=== PATIENT | female | born 1980 | race Caucasian/White ===

== ENCOUNTER → 2019-11-09 15:53 | Outpatient (CLI) | payer OTHER, SELFPAY | PROVIDERS: PCP Family Medicine; Referring Provider Otolaryngology Otolaryngology/Facial Plastic Surgery; Visit Provider Otolaryngology Otolaryngology/Facial Plastic Surgery | DX: J02.9 Acute pharyngitis, unspecified (principal) | CPT/HCPCS: 87070 ==

== ENCOUNTER → 2022-07-13 | Outpatient (CLI) | payer OTHER, SELFPAY ==
--- NOTE | 2022-07-13 09:38 | CT_ITS ---
STUDY: CT MAXILLOFACIAL SINUSES REASON FOR EXAM: Female, 42 years old. SINUSITIS RADIATION DOSAGE (If Supplied By Facility): CTDIvol = ( 33.06 ) mGy, DLP = ( 742.94 ) mGycm TECHNIQUE: The patient was scanned in a multi detector CT scanner. High resolution axial imaging was performed without the administration of intravenous contrast material. Sagittal and coronal images were reconstructed. Individualized dose optimization techniques were used for this CT. COMPARISON: None. FINDINGS: FRONTAL SINUSES: Normal aeration, without mucosal inflammatory disease. ETHMOIDAL SINUSES: There is mild opacification of the ethmoid sinuses. MAXILLARY SINUSES: Normal aeration, without mucosal inflammatory disease. SPHENOIDAL SINUSES: Normal aeration, without mucosal inflammatory disease. There is patency of the bilateral maxillary infundibuli with normal uncinate processes, ethmoid bullae, and hiatus semilunaris. Normal bilateral middle turbinates. Normal bilateral inferior turbinates. Normal midline nasal septum. There is patency of the bilateral nasal airways. The visualized osseous structures are normal. The visualized bilateral orbital contents are normal. CT/Sinus/Facial Bone IMPRESSION: Mild opacification of the ethmoid sinuses consistent with a history of sinusitis. Electronically Signed: Molly Bradford MD at 10:30 EDT ,
== END | disposition home or self-care (01) ==
PROVIDERS: PCP Family Medicine; Referring Provider Otolaryngology Otolaryngology/Facial Plastic Surgery; Visit Provider Otolaryngology Otolaryngology/Facial Plastic Surgery
DX: J32.9 Chronic sinusitis, unspecified (principal)
CPT/HCPCS: 70486

== ENCOUNTER → 2023-08-11 | Outpatient (CLI) | payer OTHER, SELFPAY | END | disposition home or self-care (01) | LOC: LABSPEC 15:15 | PROVIDERS: PCP Family Medicine; Referring Provider Otolaryngology Otolaryngology/Facial Plastic Surgery; Visit Provider Otolaryngology Otolaryngology/Facial Plastic Surgery | DX: J02.9 Acute pharyngitis, unspecified (principal) | CPT/HCPCS: 87070 ==

== ENCOUNTER → 2024-08-23 | Outpatient (CLI) | payer OTHER, SELFPAY ==
[2024-08-23 15:04] LABS: EXAGEN MAILED SPECIMEN
[2024-08-23 15:49] LABS: Color, Urine Yellow (Yellow); Glucose, Dipstick Normal (Normal); Ketone-Dipstick Negative (Negative); Leukocyte Esterase-Dipstick 100 /ul (Negative); Nitrite-Dipstick Negative (Negative); Occult Blood-Urine Negative /ul (Negative); Protein-Dipstick Negative (Negative); Specific Gravity, Urine 1.015 (1.002-1.030); Urine Bilirubin Dipstick Negative (Negative); Urine Clarity Clear (Clear); Urine Urobilinogen Normal (Normal)
[2024-08-23 16:19] LABS: Protein, Urine (Random) 7.4 mg/dL (<11.9); Protein:Creat Ratio 109 mg/g CRE (0-200)
[2024-08-23 18:37] LABS: Absolute Lymphocyte Count 2.15 X10^3/uL (0.83-4.51); Absolute Neutrophil Count 3.6 X10^3/uL (2.0-7.7); Basophil# 0.02 X10^3/uL; Basophil% 0.3 % (0-1); Eosinophil# 0.05 X10^3/uL; Eosinophils% 0.8 % (0-5); Hematocrit 39.4 % (37-47); Hemoglobin 12.8 g/dL (12.0-15.0); Lymphocyte # 2.15 X10^3/ul (0.83-4.51); Lymphocyte % 34.7 % (19-41); Mean Corp Hgb Conc 32.5 g/dL (32-36); Mean Corpuscular Hgb 27.5 pg (27.0-32.0); Mean Corpuscular Volume 84.7 fL (81-99); Mean Platelet Vol. 11.3 fl (6.2-12.0); Monocyte# 0.34 X10^3/uL; Monocyte% 5.5 % (0-10); NRBC Flagged by Analyzer 0 % (0-5); Neutrophil # 3.62 X10^3/uL (2.7-7.7); Neutrophil % 58.4 % (47-70); Platelet Count 248 K/mm3 (150-450); RBC Distribution Width CV 13.6 % (11.6-14.6); RBC Distribution Width SD 42.3 fl (35.1-43.9); Red Blood Count 4.65 M/mm3 (4.2-5.4); White Blood Count 6.2 K/mm3 (4.4-11.0)
[2024-08-23 18:48] LABS: AST(SGOT) 15 U/L (15-37); Alanine Aminotransfer ALT/SGPT 23 U/L (13-56); Albumin, Serum 3.5 g/dL (3.2-5.0); Alkaline Phosphatase 88 U/L (45-117); Anion Gap 7 (5-15); BUN 14 mg/dL (7-18); BUN/Creat Ratio 13.5 RATIO (10-20); Calcium,Total 8.9 mg/dL (8.5-10.1); Chloride 108 mmol/L (98-107); Creatinine, Serum 1.04 mg/dL (0.55-1.02); EST Glomerular Filtration Rate 62 mL/min (>60); Est Glom Filt Rate - Afr Amer 75 mL/min (>60); Globulin 3.5 g/dL (2.2-4.2); Glucose 83 mg/dL (74-106); Potassium 3.6 mmol/L (3.5-5.1); Sodium Level 139 mmol/L (136-145)
[2024-08-23 19:19] LABS: Hepatitis B Surface Antibody Reactive; Hepatitis B Surface Antigen Non-Reactive (Nonreactive); Hepatitis C Antibody Non-Reactive (Nonreactive)
== END | disposition home or self-care (01) ==
PROVIDERS: PCP Family Medicine; Referring Provider Internal Medicine Rheumatology; Visit Provider Internal Medicine Rheumatology
DX: M06.4 Inflammatory polyarthropathy (principal); R76.8 Other specified abnormal immunological findings in serum
CPT/HCPCS: 36415; 80053; 81002; 82570; 84156; 85025; 86706; 86803; 87340

== ENCOUNTER → 2024-11-22 | Outpatient (CLI) | payer OTHER, SELFPAY ==
[2024-11-22 16:00] LABS: Absolute Lymphocyte Count 2.28 X10^3/uL (0.83-4.51); Absolute Neutrophil Count 4.6 X10^3/uL (2.0-7.7); Basophil# 0.03 X10^3/uL; Basophil% 0.4 % (0-1); Eosinophil# 0.06 X10^3/uL; Eosinophils% 0.8 % (0-5); Hematocrit 40.3 % (37-47); Hemoglobin 12.9 g/dL (12.0-15.0); Lymphocyte # 2.28 X10^3/ul (0.83-4.51); Lymphocyte % 30.6 % (19-41); Mean Corpuscular Hgb 27.3 pg (27.0-32.0); Mean Corpuscular Volume 85.2 fL (81-99); Mean Platelet Vol. 11.3 fl (6.2-12.0); Monocyte# 0.43 X10^3/uL; Monocyte% 5.8 % (0-10); NRBC Flagged by Analyzer 0 % (0-5); Neutrophil % 61.9 % (47-70); Platelet Count 230 K/mm3 (150-450); RBC Distribution Width CV 13.8 % (11.6-14.6); Red Blood Count 4.73 M/mm3 (4.2-5.4); White Blood Count 7.4 K/mm3 (4.4-11.0)
[2024-11-22 16:18] LABS: ALB/GLOB Ratio 1.1 RATIO (0.9-2.4); AST(SGOT) 19 U/L (15-37); Alanine Aminotransfer ALT/SGPT 25 U/L (13-56); Albumin, Serum 4.1 g/dL (3.2-5.0); Alkaline Phosphatase 83 U/L (45-117); Anion Gap 9 (5-15); BUN 14 mg/dL (7-18); BUN/Creat Ratio 14.4 RATIO (10-20); Calcium,Total 9.6 mg/dL (8.5-10.1); Chloride 105 mmol/L (98-107); Creatinine, Serum 0.97 mg/dL (0.55-1.02); EST Glomerular Filtration Rate 67 mL/min (>60); Est Glom Filt Rate - Afr Amer 81 mL/min (>60); Globulin 3.8 g/dL (2.2-4.2); Glucose 81 mg/dL (74-106); Potassium 3.6 mmol/L (3.5-5.1); Protein, Total 7.9 g/dL (6.4-8.2); Sodium Level 136 mmol/L (136-145)
[2024-11-30 16:07] LABS: Lyme IgG P18 Ab Absent (.); Lyme IgG P23 Ab Absent (.); Lyme IgG P28 Ab Absent (.); Lyme IgG P30 Ab Absent (.); Lyme IgG P39 Ab Absent (.); Lyme IgG P41 Ab Present (.); Lyme IgG P45 Ab Absent (.); Lyme IgG P58 Ab Present (.); Lyme IgG P66 Ab Absent (.); Lyme IgG P93 Ab Absent (.); Lyme IgG WB Interpretation Negative (.); Lyme IgM P23 Ab Absent (.); Lyme IgM P39 Ab Absent (.); Lyme IgM P41 Ab Absent (.); Lyme IgM WB Interpretation Negative (.)
== END | disposition home or self-care (01) ==
LOC: MTLAB 12:41
PROVIDERS: PCP Family Medicine; Referring Provider Internal Medicine Rheumatology; Visit Provider Internal Medicine Rheumatology
DX: M06.4 Inflammatory polyarthropathy (principal); R76.8 Other specified abnormal immunological findings in serum; Z79.899 Other long term (current) drug therapy
CPT/HCPCS: 36415; 80053; 85025; 86617

== ENCOUNTER → 2025-02-22 | Outpatient (CLI) | payer OTHER, SELFPAY ==
[2025-02-22 17:49] LABS: Absolute Lymphocyte Count 2.36 X10^3/uL (0.83-4.51); Absolute Neutrophil Count 4.1 X10^3/uL (2.0-7.7); Basophil# 0.06 X10^3/uL; Basophil% 0.8 % (0-1); Eosinophil# 0.14 X10^3/uL; Eosinophils% 1.9 % (0-5); Hematocrit 38.7 % (37-47); Hemoglobin 12.6 g/dL (12.0-15.0); Lymphocyte # 2.36 X10^3/ul (0.83-4.51); Lymphocyte % 32.2 % (19-41); Mean Corp Hgb Conc 32.6 g/dL (32-36); Mean Corpuscular Hgb 27.5 pg (27.0-32.0); Mean Corpuscular Volume 84.5 fL (81-99); Mean Platelet Vol. 10.1 fl (6.2-12.0); Monocyte# 0.65 X10^3/uL; Monocyte% 8.9 % (0-10); NRBC Flagged by Analyzer 0 % (0-5); Neutrophil % 55.8 % (47-70); Platelet Count 270 K/mm3 (150-450); RBC Distribution Width CV 13.7 % (11.6-14.6); RBC Distribution Width SD 42.3 fl (35.1-43.9); Red Blood Count 4.58 M/mm3 (4.2-5.4); White Blood Count 7.3 K/mm3 (4.4-11.0)
[2025-02-22 18:55] LABS: ALB/GLOB Ratio 1.3 RATIO (0.9-2.4); AST(SGOT) 26 U/L (<=31); Alanine Aminotransfer ALT/SGPT 22 U/L (<=34); Albumin, Serum 4.1 g/dL (3.5-5.0); Alkaline Phosphatase 86 U/L (35-104); Anion Gap 11 (5-15); BUN 11 mg/dL (4-19); BUN/Creat Ratio 13.1 RATIO (10-20); Carbon Dioxide 23.8 mmol/L (21.0-32.0); Chloride 103 mmol/L (98-108); Creatinine, Serum 0.85 mg/dL (0.70-1.20); EST Glomerular Filtration Rate 88 (>60); Globulin 3.1 g/dL (2.2-4.2); Glucose 81 mg/dL (70-99); Potassium 3.4 mmol/L (3.3-5.1); Protein, Total 7.2 g/dL (5.9-8.4); Sodium Level 137 mmol/L (133-145); Total Bilirubin 0.31 mg/dL (0.00-1.30)
== END | disposition home or self-care (01) ==
LOC: MTLAB 15:36
PROVIDERS: PCP Family Medicine; Referring Provider Internal Medicine Rheumatology; Visit Provider Internal Medicine Rheumatology
DX: M06.4 Inflammatory polyarthropathy (principal); R76.8 Other specified abnormal immunological findings in serum; Z79.899 Other long term (current) drug therapy
CPT/HCPCS: 36415; 80053; 85025

== ENCOUNTER → 2025-05-26 | Outpatient (CLI) | payer OTHER, SELFPAY ==
[2025-05-26 12:25] LABS: Hematocrit 41.3 % (37-47); Hemoglobin 13.2 g/dL (12.0-15.0); Immature Granulocytes Count 0.060 X10^3/uL (0.0-0.0); Mean Corp Hgb Conc 32.0 g/dL (32-36); Mean Corpuscular Volume 82.1 fL (81-99); Mean Platelet Vol. 10.6 fl (6.2-12.0); NRBC Flagged by Analyzer 0 % (0-5); Platelet Count 258 K/mm3 (150-450); RBC Distribution Width CV 14.0 % (11.6-14.6); RBC Distribution Width SD 42.1 fl (35.1-43.9); Red Blood Count 5.03 M/mm3 (4.2-5.4); White Blood Count 6.0 K/mm3 (4.4-11.0)
[2025-05-26 13:09] LABS: AST(SGOT) 28 U/L (<=31); Alanine Aminotransfer ALT/SGPT 23 U/L (<=34); Albumin, Serum 4.3 g/dL (3.5-5.0); Alkaline Phosphatase 99 U/L (35-104); Anion Gap 15 (5-15); BUN 13 mg/dL (4-19); BUN/Creat Ratio 12.7 RATIO (10-20); Calcium,Total 9.5 mg/dL (7.6-11.0); Carbon Dioxide 19.5 mmol/L (21.0-32.0); Chloride 102 mmol/L (98-108); Globulin 3.5 g/dL (2.2-4.2); Glucose 84 mg/dL (70-99); Potassium 4.1 mmol/L (3.3-5.1)
== END | disposition home or self-care (01) ==
LOC: MTLAB 10:31
PROVIDERS: PCP Family Medicine; Referring Provider Internal Medicine Rheumatology; Visit Provider Internal Medicine Rheumatology
DX: M06.4 Inflammatory polyarthropathy (principal); R76.8 Other specified abnormal immunological findings in serum; Z79.899 Other long term (current) drug therapy
CPT/HCPCS: 36415; 80053; 85025

== ENCOUNTER → 2025-07-22 | Outpatient (CLI) | payer OTHER, SELFPAY ==
--- OUTSIDE RECORDS SUMMARY | 2025-07-22 17:04 | XMS RPT_ITS | CCD ---
Author Organization [facility] Care Team Providers Care Imaging Clerk Name Role Phone [place] PACK Unavailable Dionicio Riojas MD, Caitlin Rios Primary Care Provider [phone] Shine LIMA, Caitlin Rios Primary Care Provider [phone] Shine LIMA, Ciatlin S Primary Care Provider Shine LIMA, Caitlin Rios Primary Care Provider [phone] Shine LIMA, Caitlin Primary Care Provider Shine LIMA, Caitlin Primary Care Provider [phone] Shine LIMA, Caitlin Rios Primary Care Provider Unavailable Primary Care Provider Dionicio Riojas MD, Dr. Tucker Primary Care Provider [phone] Dr. Uyen Cortes MD Attending Provider Dr. Uyen Cortes MD Referring Provider CAMI BAH Referring Unavaila CAMI Norris Attending Unavaila ble CAMI BAH Admitting Unavaila CAMI Norris Attending Unavaila CAMI Norris Attending Unavaila ROSANA Scherer Attending Unavailable CAITLIN RIOJAS Primary Care Unavailable Shine LIMA, Dr. Tucker Primary Care Provider [phone] Dr. Uyen Cortes MD Attending Provider Dr. Uyen Cortes MD Referring Provider Vellanki, Uyen Attending Unavailable Caitlin Riojas Primary Care Unavailable Vellanki, Uyen Referring Unavailable Vellanki, Uyen Attending Unavailable [facility] Primary Care Unavailable Vellanki, Uyen Referring Unavailable Vellanki, Uyen Attending Unavailable [facility] Primary Care Unavailable Vellanki, Uyen Referring Unavailable [facility] Primary Care Unavailable Vellanki, Uyen Attending Unavailable Vellanki, Uyen Referring Unavailable Verito Elder DO Primary Care Provider [facility] Referring Unavailable [place], CAITLIN Attending Unavailable [facility] Primary Care Unavailable [facility] Primary Care Unavailable VERITO ELDER Attending Unavailable [facility] Att[facility] Unavailable [facility] Primary Care Unavailable Unavailable Primary Care Provider UnavailWALESKA Sy Attending Unavailable Allergies Allergy Classification Reported Allergen(s) Allergy Type Date of Onset Reaction(s) Facility (13 sources) SUMAtriptan; Translations: [SUMATRIPTAN SUCCINATE] Drug Allergy 1 Intolerance [facility] Repository (16 sources) BLUE DYE; Translations: [BLUE DYE] Propensity to adverse reactions to drug (disorder) 1 Diarrhea, Vomiting, Nausea and vomiting [facility] Repository (20 sources) SUMAtriptan; Translations: [SUMATRIPTAN] Drug Allergy 1 GI Intolerance [facility] (20 sources) Blue Dyes (Parenteral) Drug Allergy 1 Diarrhea [facility] Medications Current Medications Medication Drug Class(es) Dates Sig (Normalized) Sig (Original) amLODIPine 5 mg oral tablet (20 sources) Dihydropyridine Calcium Channel Asya Start: 12-06-2024 take 1 tablet by mouth once daily amLODIPine (NORVASC) 5 mg tablet Take 1 tablet by mouth once daily. 12/06/2024 Active Start: 12-06-2024 take 2 tablets by [facility] once daily amLODIPine (Norvasc) 5 MG tablet Take 10 mg by mouth daily. 12/06/2024 Active Start: 01-02-2024 End: 06-06-2025 take 1 tablet by mouth once daily amLODIPine (Norvasc) 2.5 MG tablet Indications: Raynaud's disease without gangrene TAKE 1 TABLET BY MOUTH EVERY DAY 90 tablet 3 11/15/2024 06/06/2025 Discontinued (Med list cleanup) cetirizine hydrochloride 10 mg oral tablet (2 sources) Histamine-1 Receptor Antagonist take 1 tablet by mouth once daily cetirizine (ZYRTEC) 10 MG tablet Take 1 (one) tablet (10 mg total) by mouth daily . Active DULoxetine 30 mg delayed release oral capsule (9 sources) Serotonin and Norepinephrine Reuptake Inhibitor Start: 2024 End: 2025 take 1 capsule by mouth once daily DULoxetine (CYMBALTA) 30 MG capsule Take 1 (one) capsule (30 mg total) by mouth daily . 01/02/2025 06/06/2026 Active folic acid 1 mg oral tablet (2 sources) Start: 2024 take 1 tablet by mouth once daily folic acid (FOLVITE) 1 MG tablet Take 2 (two) tablets (2,000 mcg total) by mouth daily . 06/06/2025 Active hydroxychloroquine sulfate 200 mg oral tablet (9 sources) Antimalarial, Antirheumatic Agent Start: 2024 hydrOXYchloroQUINE (PLAQUENIL) 200 mg tablet Take 300 mg by mouth once daily. 12/06/2024 Active take 5.5 tablets by mouth once d aily hydroxychloroquine (PLAQUENIL) 200 mg tablet TAKE 1&1/2 TABLET(S) ORAL EVERY DAY Active loratadine 10 mg oral tablet (20 sources) take 1 tablet by mouth once daily as needed loratadine (CLARITIN) 10 mg tablet Take 1 (one) tablet (10 mg total) by mouth daily as needed . Active Comment on above: Take 10 mg by mouth. methotrexate 2.5 mg oral tablet (2 sources) Folate Analog Metabolic Inhibitor Start: 5 take 5 tablets by mouth every week, then take 4 tablets by mouth every week methoTREXate (TREXALL) 2.5 MG tablet TAKE 5 TABLET(S) ORAL ONCE A WEEK START 4 TABS ONCE A WK FOR 2 WKS 06/06/2025 Active pantoprazole 40 mg delayed release oral tablet (20 sources) Proton Pump Inhibitor Start: 2 take 1 tablet by mouth once daily pantoprazole (PROTONIX) 40 MG tablet Take 1 (one) tablet (40 mg total) by mouth daily . 11/29/2021 Active Comment on above: Take 40 mg by mouth once daily. UNABLE TO FIND (1 source) UNABLE TO FIND Indications: weekly allergy shots Inject as directed Indications: weekly allergy shots 0 Active Completed/Discontinued Medications Medication Drug Class(es) Dates Sig (Normalized) Sig (Original) atenolol 25 mg oral tablet (5 sources) beta-Adrenergic Asya Start: 05-29-2023 End: 11-25-2023 take 1 tablet by mouth once daily atenolol (Tenormin) 25 MG tablet Indications: Anxiety , Tachycardia Take 1 tablet (25 mg) by mouth daily. 30 tablet 5 05/29/2023 07/07/2023 Discontinued (Side effects) b complex vitamins capsule (4 sources) End: 05-05-2024 take 1 capsule by mouth once daily b complex vitamins capsule Take 1 capsule by mouth daily. 05/05/2024 Discontinued (Therapy completed) take 1 capsule by mouth once kaylah ly b complex vitamins capsule Take 1 capsule by mouth daily. 0 Active benzonatate 200 mg oral capsule (3 sources) Non-narcotic Antitussive Start: 12-09-2023 End: 01-08-2024 take 1 capsule by mouth three times daily as needed for cough benzonatate (Tessalon) 200 MG capsule Indications: COVID-19 Take 1 capsule (200 mg) by mouth 3 times daily as needed for cough. Do not crush or chew. 42 capsule 0 12/09/2023 01/02/2024 Discontinued calcium carbonate 800 mg / famotidine 10 mg / magnesium hydroxide 165 mg chewable tablet (20 sources) Histamine-2 Receptor Antagonist famotidine-calcium carbonate-magnesium hydroxide (PEPCID COMPLETE) 10-800-165 mg Chew Chew and Swallow 1 (one) tablet every evening . Active cholecalciferol 0.025 mg oral capsule (12 sources) Vitamin D End: 06-06-2025 cholecalciferol 25 MCG (1000 UT) capsule Take by mouth. 06/06/2025 Discontinued (Med list cleanup) escitalopram 10 mg oral tablet (1 source) Serotonin Reuptake Inhibitor Start: 05-12-2025 End: 06-06-2025 take 1 tablet by mouth once daily escitalopram (Lexapro) 10 MG tablet Take 10 mg by mouth daily. 05/12/2025 06/06/2025 Discontinued Ethinyl Estradiol / Norgestrel (9 sources) Estrogen Start: 11-25-2022 End: 05-02-2023 Low-Ogestrel 0.3-30 MG-MCG tablet TAKE 1 TABLET BY MOUTH ONCE DAILY. NEW PACK EVERY 21 DAYS. 0 11/25/2022 05/02/2023 Discontinued (Med list cleanup) Start: 11-25-2022 Low-Ogestrel 0 .3-30 MG-MCG tablet TAKE 1 TABLET BY MOUTH ONCE DAILY. NEW PACK EVERY 21 DAYS. 0 11/25/2022 Active Start: 09-02-2022 End: 09-22-2023 norgestrel-ethinyl estradiol 0.3-30 mg-mcg per tablet Take 1 tablet by mouth once daily. New pack every 21 days. 112 tablet 4 09/02/2022 09/22/2023 Discontinued Start: 09-02-2022 norgestrel-eth inyl estradiol 0.3-30 mg-mcg per tablet Take 1 tablet by mouth once daily. New pack every 21 days. 112 tablet 4 09/02/2022 Active Start: 01-01-2022 take 1 tablet by derrek th once daily, then take 0.3-30 tablets by mouth once norgestrel-ethinyl estradiol (LO/OVRAL) 0.3-30 MG-MCG per tablet Take 1 tablet by mouth daily 0 01/01/2022 Active Start: 01-01-2022 norgestrel-eth inyl estradiol 0.3-30 mg-mcg per tablet Take 1 tablet by mouth once daily. New pack every 21 days. 112 tablet 4 01/01/2022 Active Comment on above: Take 1 tablet by derrek th once daily. New pack every 21 days. metroNIDAZOLE 10 mg/ml topical cream (1 source) Nitroimidazole Antimicrobial metroNIDAZOLE (NORITATE) 1 % cream Apply to affected area once daily. 0 Active Comment on above: Apply to affected ar ea once daily. MULTIVITAMIN ORAL (1 source) take 2 capsules by mouth once daily, then take 2 capsules by mouth once daily MULTIVITAMIN ORAL Take 2 capsules by mouth once daily. 2 gummies per day 0 Active Comment on above: Take 2 capsules by m out once daily. 2 gummies per day nebivolol 2.5 mg oral tablet (10 sources) Start: End: 03-20-2 025 take 1 tablet by mouth once daily nebivolol (Bystolic) 2.5 MG tablet Indications: Tachycardia Take 1 tablet (2.5 mg) by mouth daily. 90 tablet 3 09/23/2023 01/02/2024 Discontinued Comment on above: Take 2.5 mg by mouth once daily. PNV with Ca,No.66-Stru-SQ-DHA (WOMEN'S + DHA) 28 mg-975 mcg- 200 mg cmpk (1 source) Start: 018 take 1 tablet by mouth once daily PNV with Ca,No.10-Dkxa-RW-DHA (WOMEN'S + DHA) 28 mg-975 mcg- 200 mg cmpk Take 1 tablet by mouth once daily. 90 Each 4 12/11/2017 Active Comment on above: Take 1 tablet by derrek th once daily. Lmqkyv-HcXat-HgLqv-Me th-FA-DHA (Prenate Mini) 18-0.6-0.4-350 MG capsule (18 sources) Start: 023 End: 024 take 1 tablet by mouth in the morning Hzudpd-XdIps-GdJdz-M eth-FA-DHA (Prenate Mini) 18-0.6-0.4-350 MG capsule Take 1 tablet by mouth in the morning. 04/04/2023 05/05/2024 Discontinued (Therapy completed) Start: 04-04-2023 take 1 tablet by derrek th in the morning Ablavk-KnNwy-DaGrk-Meth-FA-DHA (Prenate Mini) 18-0.6-0.4-350 MG capsule Take 1 tablet by mouth in the morning. 0 04/04/2023 Active vit 59-safn-kikfr-dha (PRENATE MINI, FERR ASP GLYCIN,) 18-1-350 mg cap (5 sources) Start: 04-04-2023 End: 09-22-2023 take 1 tablet by mouth once daily vit 62-zben-fbjnw-dha (PRENATE MINI, FERR ASP GLYCIN,) 18-1-350 mg cap Take 1 tablet by mouth once daily. 90 capsule 4 04/04/2023 09/22/2023 Discontinued Start: 04-04-2023 take 1 tablet by derrek th once daily vit 63-lbzw-hprfc-dha (PRENATE MINI, FERR ASP GLYCIN,) 18-1-350 mg cap Take 1 tablet by mouth once daily. 90 capsule 4 04/04/2023 Active Start: 06-15-2019 take 1 tablet by derrek th once daily vit 05-snpl-bptmq-dha (PRENATE MINI, FERR ASP GLYCIN,) 18-1-350 mg cap Take 1 tablet by mouth once daily. 90 tablet 4 06/15/2019 Active Comment on above: Take 1 tablet by derrek th once daily. vitamin b12 1 mg oral tablet (1 source) Vitamin B12 take 1 tablet by mouth once daily cyanocobalamin (VITAMIN B-12) 1,000 mcg tab Take 1,000 mcg by mouth once daily. 0 Active Comment on above: Take 1,000 mcg by mo ut once daily. Problems Active Problems Problem Classification Problem Date Documented Date Episodic/Chronic Anxiety disorders (5 sources) Anxiety; Translations: [Anxiety disorder, unspecified] Onset: 06-06-2025 05-29-2023 Chronic Cardiac dysrhythmias (3 sources) Tachycardia; Translations: [Tachycardia, unspecified] 05-29-2023 Episodic Esophageal disorders (20 sources) Gastroesophageal reflux disease without esophagitis; Translations: [Gastro-esophageal reflux disease without esophagitis] Onset: 08-27-2021 08-27-2021 Chronic Female infertility (1 source) Female infertility; Translations: [Female infertility, unspecified] Chronic Immunizations and screening for infectious disease (2 sources) Anti-nuclear factor positive; Translations: [Other specified abnormal immunological findings in serum] 07-15-2024 Episodic Lymphadenitis (2 sources) Acute lymphadenitis; Translations: [Acute lymphadenitis, unspecified] 01-02-2024 Episodic Malaise and fatigue (2 sources) Fatigue; Translations: [Other fatigue] 05-02-2023 Episodic Other circulatory disease (5 sources) Raynaud's disease; Translations: [Raynaud's syndrome without gangrene] 01-02-2024 Chronic Other circulatory disease (3 sources) Raynaud's syndrome without gangrene; Translations: [Raynaud's disease without gangrene] Onset: 04-27-2025 Chronic Other circulatory disease (2 sources) Raynaud's phenomenon; Translations: [Raynaud's syndrome without gangrene] Onset: 06-06-2025 06-06-2025 Chronic Other connective tissue disease (2 sources) Pain in left foot; Translations: [Pain in left foot] 07-16-2025 Episodic Other connective tissue disease (2 sources) Pain in right foot; Translations: [Pain in right foot] 07-16-2025 Episodic Other inflammatory condition of skin (20 sources) Rosacea; Translations: [Rosacea, unspecified] Onset: 10-08-2017 10-08-2017 Chronic Other non-traumatic joint disorders (2 sources) Bilateral pain of joint of hands; Translations: [Pain in joints of right hand] 07-12-2024 Episodic Other skin disorders (1 source) Skin problem; Translations: [Disorder of the skin and subcutaneous tissue, unspecified] Episodic Other skin disorders (2 sources) Acquired keratoderma; Translations: [Acquired keratosis [keratoderma] palmaris et plantaris] 07-16-2025 Episodic Residual codes; unclassified (1 source) Postoperative state; Translations: [Other specified postprocedural states] 05-12-2025 Episodic Residual codes; unclassified (1 source) Other specified postprocedural states; Translations: [Post-operative state] Onset: 05-12-2025 Episodic Rheumatoid arthritis and related disease (4 sources) Rheumatoid arthritis; Translations: [Rheumatoid arthritis, unspecified] Onset: 09-13-2024 04-27-2025 Chronic Sprains and strains (1 source) Strain of unspecified muscle, fascia and tendon at shoulder and upper arm level, right arm, initial encounter; Translations: [Strain of unspecified muscle, fascia and tendon at shoulder and upper arm level, right arm, initial encounter] Onset: 10-31-2018 Episodic Superficial injury; contusion (1 source) Abrasion, right lower leg, initial encounter; Translations: [Abrasion or friction burn of hip, thigh, leg, and ankle, without mention of infection] 07-12-2024 Episodic Past or Other Problems Problem Classification Problem Date Documented Da te Episodic/Chronic Bacterial infection; unspecified site (20 sources) Clostridioides difficile infection; Translations: [Other bacterial infections of unspecified site] Onset: 10-29-2019 Resolved: 06-06-2025 10-29-2019 Episodic Contraceptive and procreative management (2 sources) Encounter for sterilization; Translations: [Encounter for sterilization] Onset: 02-10-2025 Episodic Ectopic (5 sources) Tubal ; Translations: [Right tubal without intrauterine ] Onset: 04-25-2019 Resolved: 05-12-2019 05-12-2019 Episodic Other gastrointestinal disorders (20 sources) Irritable bowel syndrome; Translations: [Irritable bowel syndrome without diarrhea] Onset: 07-20-2018 Resolved: 06-06-2025 07-20-2018 Chronic Other non-traumatic joint disorders (2 sources) Pain in joints of right hand; Translations: [Pain in joints of right hand] Onset: 07-12-2024 Episodic Other non-traumatic joint disorders (2 sources) Pain in joints of left hand; Translations: [Pain in joints of left hand] Onset: 07-12-2024 Episodic Other screening for suspected conditions (not mental disorders or infectious disease) (13 sources) Patient encounter status; Translations: [Encounter for screening mammogram for malignant neoplasm of breast] Onset: 07-07-2024 Resolved: 05-11-2025 Episodic Residual codes; unclassified (20 sources) H/O: ectopic ; Translations: [Personal history of other complications of , childbirth and the puerperium] Onset: 04-25-2019 10-29-2019 Episodic Residual codes; unclassified (5 sources) Family history of malignant neoplasm of breast in first degree relative; Translations: [Family history of malignant neoplasm of breast] Onset: 01-06-2025 01-06-2025 Episodic Unclassified (1 source) Foot Problem Onset: 07-04-2025 Viral infection (20 sources) Infectious mononucleosis; Translations: [Infectious mononucleosis, unspecified without complication] Onset: 07-20-2018 Resolved: 06-06-2025 07-20-2018 Episodic Results Test Name Value Interpretation Reference Range Facility Office Visiton 06-06-2025 Follow-up visit [id number] Prashanth Jimenez 1980 F Date Provider Department Center 06/06/2025 [id number] FRANCO [facility] Family History Problem Relation Age of Onset Breast cancer Mother 55 Comments: Had genetic testing - non genetic cancer Other Father Comments: stomach issues Kidney disease Father No Known Problems Brother Heart disease Maternal Grandmother Comments: has had open heart surgery Colon cancer Maternal Grandfather Heart disease Maternal Grandfather Comments: has had heart cath Dementia Maternal Grandfather Heart attack Paternal Grandmother Comments: hx of No Known Problems Paternal Grandfather Breast cancer Father's Sister Family Status - Relation Status Age at Mother Alive Father Alive Brother Alive Maternal Grandmother Alive Maternal Grandfather Alive Paternal Grandmother Alive Paternal Grandfather Other Father's Sister Alive Level of Service:35068 ND PERIODIC PREVENTIVE MED EST PATIENT 40-64YRS Reason for Visit and Comments: Annual Exam [83] - Physical, no concerns today New Patient [[id number]] - New to provider Referral [[id number]] - Needs referral for Mammogram Normal [facility] Progress Noteon 06-06-2025 Progress Note Chronic. Controlled on amlodipine. Mgmt per rheum. Normal [facility] Progress Note [facility] [place] [address] [place] [facility] [id number] Visit Type: Physical PCP: Verito Elder DO Reason for Visit: Annual Exam (Physical, no concerns today), New Patient (New to provider), and Referral (Needs referral for Mammogram) ASSESSMENT AND PLAN Assessment & Plan Annual physical exam Up to date on pap smear-Dr. Roa. Mammo ordered. Orders: Lipid panel; Future Raynaud's phenomenon without gangrene Chronic. Controlled on amlodipine. Mgmt per rheum. Anxiety Chronic. Uncontrolled on lexapro. Switch back to cymbalta for better control. Stay on 30mg dose. Let rheum manage the pain component. Encounter for screening mammogram for malignant neoplasm of breast Orders: Bilateral screening mammogram with tomosynthesis; Future Follow up in about 1 year (around 06/06/2026) for Annual. There are no Patient Instructions on file for this visit. SUBJECTIVE HPI Lili Jimenez presents for an annual exam. She has the following concerns today: Rheumatoid arthritis - diagnosed in Aug 2024 Raynauds - amlodipine H/o cymbalta - 30mg was good, but on increased dose noted constipation Lexapro switched by Dr. Tavarez. But not helping the anxiety and dreaming. Review of Systems Pertinent ROS noted in the HPI and all other systems are negative. Allergies[1] Current Medications[2] Medical History[3] Social History[4] Surgical History[5] Family History[6] OBJECTIVE BP 107/73 (BP Location: Right arm, Patient Position: Sitting, BP Cuff Size: Adult) Pulse 73 Temp 36.7 ?C (98 ?F) (Temporal) Ht 5' (1.524 m) Wt 143 lb (64.9 kg) LMP 06/02/2025 (Exact Date) Comment: Regular SpO2 100% BMI 27.93 kg/m? Physical Exam Constitutional: General: She is not in acute distress. Appearance: Normal appearance. HENT: Head: Normocephalic and atraumatic. Right Ear: Tympanic membrane, ear canal and external ear normal. Left Ear: Tympanic membrane, ear canal and external ear normal. Mouth/Throat: Mouth: Mucous membranes are moist. Pharynx: Oropharynx is clear. No posterior oropharyngeal erythema. Eyes: General: No scleral icterus. Extraocular Movements: Extraocular movements intact. Conjunctiva/sclera: Conjunctivae normal. Pupils: Pupils are equal, round, and reactive to light. Neck: Thyroid: No thyroid mass or thyromegaly. Cardiovascular: Rate and Rhythm: Normal rate and regular rhythm. Heart sounds: No murmur heard. Pulmonary: Effort: Pulmonary effort is normal. No respiratory distress. Breath sounds: Normal breath sounds. No wheezing, rhonchi or rales. Abdominal: General: Abdomen is flat. Bowel sounds are normal. There is no distension. Palpations: Abdomen is soft. There is no hepatomegaly, splenomegaly or mass. Tenderness: There is no abdominal tenderness. There is no guarding. Musculoskeletal: Cervical back: Normal range of motion. No tenderness. Lymphadenopathy: Cervical: No cervical adenopathy. Neurological: Mental Status: She is alert. Psychiatric: Attention and Perception: Attention normal. Mood and Affect: Mood normal. Behavior: Behavior normal. Health Maintenance The 10-year ASCVD risk score (Vivian DK, et al., 2019) is: 0.3% Values used to calculate the score: Age: 45 years Sex: Female Is Non- : No Diabetic: No Tobacco smoker: No Systolic Blood Pressure: 107 mmHg Is BP treated: No HDL Cholesterol: 63 mg/dL Total Cholesterol: 178 mg/dL Health Maintenance Due Topic Date Due MMR Vaccines (1 of 1 - Standard series) Never done Varicella Vaccines (1 of 2 - 13+ 2-dose series) Never done Diabetes Screening Never done Hepatitis B Vaccines (1 of 3 - 19+ 3-dose series) Never done COVID-19 Vaccine () 06/20/2024 Cervical Cancer Screening 05/02/2025 Mammogram 07/07/2025 Immunization History Administered Date(s) Administered Alice SARS-CoV-2 Vaccination 08/10/2021 Rho(D)-IG 04/25/2019 Rho(D)-IG IM 04/25/2019 Tdap 02/01/2015, 04/03/2016 Medications Discontinued During This Encounter Medication Reason amLODIPine (Norvasc) 2.5 MG tablet Med list cleanup cholecalciferol 25 MCG (1000 UT) capsule Med list cleanup escitalopram (Lexapro) 10 MG tablet Verito Elder DO 06/06/2025 3:07 PM There are no Patient Instructions on file for this visit. [1] Allergies Allergen Reactions Blue Dyes (Parenteral) Diarrhea Other reaction(s): Vomiting Sumatriptan Other reaction(s): AOF, Intolerance, Intolerance [2] Current Outpatient Medications: amLODIPine (Norvasc) 5 MG tablet, Take 10 mg by mouth daily., Disp: , Rfl: famotidine-calcium carb-mag hydroxide (Pepcid Complete) 10-800-165 MG chewable tablet, Chew 1 tablet every evening., Disp: , Rfl: hydroxychloroquine (Plaquenil) 200 MG tablet, TAKE 11/2 TABLET(S) ORAL EVERY DAY, Disp: , Rfl: loratadine (Claritin) 10 MG tablet, Take 10 mg by mouth daily as ne (more content not included)... Normal [facility] Absolute lymphocyte countOrd ered By: Uyen Cortes on 05-26-2025 Lymphocytes Auto (Unsp spec) [#/Vol] 1.42 10*3/uL 0.83-4.51 [facility] Absolute neutrophil countOrd ered By: Uyen Cortes on 05-26-2025 Neutrophils (Bld) [#/Vol] 3.9 10*3/uL 2.0-7.7 [facility] Anion gap in Serum or Plasma Ordered By: Uyen Cortes on 05-26-2025 Anion gap [Moles/Vol] 15 mmol/L 5-15 [facility] Automated lymphocyte count a s percentage of total leukocytesOrdered By: Uyen Cortes on 05-26-2025 Lymphocytes/100 WBC Auto (Unsp spec) 23.9 % 19- [facility] BUN/creatinine ratioOrdered By: Uyen Cortes on 05-26-2025 Urea nitrogen/Creatinine [Mass ratio] 12.7 mg/mg 10-20 [facility] Basophil percentageOrdered B y: Uyen Cortes on 05-26-2025 Basophils/100 WBC (Bld) 0.5 % 0-1 [facility] Bilirubin, totalOrdered By: Uyen Cortes on 05-26-2025 Bilirubin [Mass/Vol] 0.50 mg/dL 0.00-1.[address] [facility] CBC W/Diff, Automatedon Absolute Lymph 1.42 X10 3/uL Normal 0.83-4.51 [facility] Comment on above: Performed By: #### L 500.4050, [id number], L100.0100 #### [facility] [address] [place], [address] Absolute Neut 3.9 X10 3/uL Normal 2.0-7.7 [facility] Comment on above: Performed By: #### L 500.4050, [id number], L100.0100 #### [facility] [address] [place], [address] Basophils/100 WBC (Bld) 0.5 % Normal 0-1 [facility] Comment on above: Performed By: #### L 500.4050, [id number], L100.0100 #### [facility] [address] [place], [address] Eosinophils/100 WBC (Bld) 1.0 % Normal 0-5 [facility] Comment on above: Performed By: #### L 500.4050, [id number], L100.0100 #### [facility] [address] [place], [address] Erythrocyte distribution width (RBC) [Ratio] 14.0 % Normal 11.6-14.6 [facility] Comment on above: Performed By: #### L 500.4050, L7000.5800, L100.0100 #### [facility] [address] [place], [address] Hematocrit (Bld) [Volume fraction] 41.3 % Normal 37-47 [facility] Comment on above: Performed By: #### L 500.4050, L7000.5800, L100.0100 #### [facility] [address] [place], [address] Hemoglobin (Bld) [Mass/Vol] 13.2 g/dL Normal 12.0-15.0 [facility] Comment on above: Performed By: #### L 500.4050, L7000.5800, L100.0100 #### [facility] [address] [place], [address] IG% 1.000 High 0.0-0.9 [facility] Comment on above: Result Comment: IG% - Immature Granulocytes (promyelocytes, myelocytes and metamyelocytes) > 1% indicates that a LEFT SHIFT is Present. Performed By: #### L 500.4050, L7000.5800, L100.0100 #### [facility] [address] [place], [address] Lymphocytes/100 WBC (Bld) 23.9 % Normal 19-41 [facility] Comment on above: Performed By: #### L 500.4050, L7000.5800, L100.0100 #### [facility] [address] [place], [address] MCH (RBC) [Entitic mass] 26.2 pg Low 27.0-32.0 [facility] Comment on above: Performed By: #### L 500.4050, L7000.5800, L100.0100 #### [facility] [address] [place], [address] MCHC (RBC) [Mass/Vol] 32.0 g/dL Normal 32-36 [facility] Comment on above: Performed By: #### L 500.4050, L7000.5800, L100.0100 #### [facility] [address] [place], [address] MCV (RBC) [Entitic vol] 82.1 fL Normal 81-99 [facility] Comment on above: Performed By: #### L 500.4050, L7000.5800, L100.0100 #### [facility] [address] [place], [address] Monocytes/100 WBC (Bld) 7.6 % Normal 0-10 [facility] Comment on above: Performed By: #### L 500.4050, L7000.5800, L100.0100 #### [facility] [address] [place], [address] Neutrophils/100 WBC (Bld) 66.0 % Normal 47-70 [facility] Comment on above: Performed By: #### L 500.4050, L7000.5800, L100.0100 #### [facility] [address] [place], [address] Nucleated RBC (Bld) [#/Vol] 0 10*3/uL Normal 0-5 [facility] Comment on above: Performed By: #### L 500.4050, L7000.5800, L100.0100 #### [facility] [address] [place], [address] Platelet mean volume (Bld) [Entitic vol] 10.6 fL Normal 6.2-12.0 [facility] Comment on above: Performed By: #### L 500.4050, L7000.5800, L100.0100 #### [facility] [address] [place], [address] Platelets (Bld) [#/Vol] 258 10*3/uL Normal 150-450 [facility] Comment on above: Performed By: #### L 500.4050, L7000.5800, L100.0100 #### [facility] [address] [place], [address] RBC (Bld) [#/Vol] 5.03 10*6/uL Normal 4.2-5.4 [facility] Comment on above: Performed By: #### L 500.4050, L7000.5800, L100.0100 #### [facility] [address] [place], [address] RDW SD 42.1 fl Normal 35.1-43.9 [facility] Comment on above: Performed By: #### L 500.4050, L7000.5800, L100.0100 #### [facility] [address] [place], [address] WBC (Bld) [#/Vol] 6.0 10*3/uL Normal 4.4-11.0 [facility] Comment on above: Performed By: #### L 500.4050, L7000.5800, L100.0100 #### [facility] [address] [place], [address] Carbon dioxide, total [Moles /volume] in Central venous bloodOrdered By: Uyen Cortes on 05-26-2025 CO2 [Moles/Vol] 19.5 mmol/L Low 21.0-32.0 [facility] Chloride assayOrdered By: Reji Cortes on 05-26-2025 Chloride [Moles/Vol] 102 mmol/L 98-[address] [facility] Comprehensive Metabolic Prof ilon 05-26-2025 Albumin [Mass/Vol] 4.3 g/dL Normal 3.5-5.0 [facility] Comment on above: Performed By: #### L 500.4050, L7000.5800, L100.0100 #### [facility] [address] [place], [address] Albumin/Globulin [Mass ratio] 1.2 {ratio} Normal 0.9-2.4 [facility] Comment on above: Performed By: #### L 500.4050, L7000.5800, L100.0100 #### [facility] [address] [place], [address] ALK PHOS 99 U/L Normal 35-104 [facility] Comment on above: Performed By: #### L 500.4050, L7000.5800, L100.0100 #### [facility] [address] [place], [address] ALT [Catalytic activity/Vol] 23 U/L Normal <=34 [facility] Comment on above: Performed By: #### L 500.4050, L7000.5800, L100.0100 #### [facility] [address] [place], [address] AST [Catalytic activity/Vol] 28 U/L Normal <=31 [facility] Comment on above: Performed By: #### L 500.4050, L7000.5800, L100.0100 #### [facility] [address] [place], [address] Bilirubin [Mass/Vol] 0.50 mg/dL Normal 0.00-1.[address] [facility] Comment on above: Performed By: #### L 500.4050, L7000.5800, L100.0100 #### [facility] [address] [place], [address] BUN/CRE 12.7 RATIO Normal 10-20 [facility] Comment on above: Performed By: #### L 500.4050, L7000.5800, L100.0100 #### [facility] [address] [place], [address] Calcium [Mass/Vol] 9.5 mg/dL Normal 7.6-11.0 [facility] Comment on above: Performed By: #### L 500.4050, L7000.5800, L100.0100 #### [facility] [address] [place], [address] Chloride [Moles/Vol] 102 mmol/L Normal 98-[address] [facility] Comment on above: Performed By: #### L 500.4050, L7000.5800, L100.0100 #### [facility] [address] [place], [address] CO2 [Moles/Vol] 19.5 mmol/L Low 21.0-32.0 [facility] Comment on above: Performed By: #### L 500.4050, L7000.5800, L100.0100 #### [facility] [address] [place], [address] Creatinine [Mass/Vol] 1.05 mg/dL Normal 0.70-1.20 [facility] Comment on above: Performed By: #### L 500.4050, L7000.5800, L100.0100 #### [facility] [address] [place], [address] GAP 15 Normal 5-15 [facility] Comment on above: Performed By: #### L 500.4050, L7000.5800, L100.0100 #### [facility] [address] [place], [address] GFR/1.73 sq M.predicted among non-blacks MDRD (S/P/Bld) [Vol rate/Area] 68 mL/min/{1.73_m2} Normal >60 [facility] Comment on above: Result Comment: mL/m in/1.73m2 CKD-EPI Creatinine Equation (2020) Performed By: #### L 500.4050, L7000.5800, L100.0100 #### [facility] [address] [place], [address] Globulin (S) [Mass/Vol] 3.5 g/dL Normal 2.2-4.2 [facility] Comment on above: Performed By: #### L 500.4050, L7000.5800, L100.0100 #### [facility] [address] [place], [address] Glucose [Mass/Vol] 84 mg/dL Normal 70-99 [facility] Comment on above: Performed By: #### L 500.4050, L7000.5800, L100.0100 #### [facility] [address] [place], [address] Potassium [Moles/Vol] 4.1 mmol/L Normal 3.3-5.1 [facility] Comment on above: Performed By: #### L 500.4050, L7000.5800, L100.0100 #### [facility] [address] [place], [address] Sodium [Moles/Vol] 136 mmol/L Normal 133-145 [facility] Comment on above: Performed By: #### L 500.4050, L7000.5800, L100.0100 #### [facility] [address] [place], [address] T PROT 7.8 g/dL Normal 5.9-8.4 [facility] Comment on above: Performed By: #### L 500.4050, L7000.5800, L100.0100 #### [facility] [address] [place], [address] Urea nitrogen [Mass/Vol] 13 mg/dL Normal 4-19 [facility] Comment on above: Performed By: #### L 500.4050, L7000.5800, L100.0100 #### [facility] [address] [place], [address] Eosinophil percentageOrdered By: Uyen Cortes on 05-26-2025 Eosinophils/100 WBC (Bld) 1.0 % 0-5 [facility] Erythrocyte distribution wid th ratioOrdered By: Uyen Cortes on 05-26-2025 Erythrocyte distribution width (RBC) [Ratio] 14.0 % 11.6-14.6 [facility] Erythrocyte distribution wid th standard deviationOrdered By: Uyen Cortes on 05-26-2025 Erythrocyte distribution width (RBC) [Ratio] 42.1 fl 35.1-43.9 [facility] Glomerular filtration rate ( GFR) estimation/1.73 sq m using serum, plasma, or whole bOrdered By: Uyen Cortes on 05-26-2025 GFR/1.73 sq M.predicted among non-blacks MDRD (S/P/Bld) [Vol rate/Area] 68 mL/min/{1.73_m2} >60 [facility] Comment on above: mL/min/1.73m2 CKD-EP I Creatinine Equation (2020) Hematocrit Auto (Bld) [Volum e fraction]Ordered By: Uyen Cortes on 05-26-2025 Hematocrit (Bld) [Volume fraction] 41.3 % 37-47 [facility] Hemoglobin measurementOrdere d By: Uyen Cortes on 05-26-2025 Hemoglobin (Bld) [Mass/Vol] 13.2 g/dL 12.0-15.0 [facility] Immature granulocytes/100 WB C Auto (Bld)Ordered By: Uyen Cortes on 05-26-2025 Immature granulocytes/100 WBC (Bld) 1.000 % High 0.0-0.9 [facility] Comment on above: IG% - Immature Granu locytes (promyelocytes, myelocytes and metamyelocytes) > 1% indicates that a LEFT SHIFT is Present. Laboratory - Chemistry and C hemistry - challengeOrdered By: Uyen Cortes on 05-26-2025 AST [Catalytic activity/Vol] 28 U/L <32 [facility] MCV (mean corpuscular volume ) determinationOrdered By: Uyen Cortes on 05-26-2025 MCV (RBC) [Entitic vol] 82.1 fL 81-99 [facility] Mean corpuscular hemoglobin (MCH) determinationOrdered By: Uyen Cortes on 05-26-2025 MCH (RBC) [Entitic mass] 26.2 pg Low 27.0-32.0 [facility] Mean corpuscular hemoglobin concentration (MCHC) determinationOrdered By: Uyen Cortes on 05-26-2025 MCHC (RBC) [Mass/Vol] 32.0 g/dL 32-36 [facility] Mean platelet volume determi nationOrdered By: Uyen Cortes on 05-26-2025 Platelet mean volume (Bld) [Entitic vol] 10.6 fL 6.2-12.0 [facility] Monocyte percentageOrdered B y: Uyen Cortes on 05-26-2025 Monocytes/100 WBC (Bld) 7.6 % 0-10 [facility] Neutrophil percentageOrdered By: Uyen Cortes on 05-26-2025 Neutrophils/100 WBC (Bld) 66.0 % 47-70 [facility] Nucleated red blood cell per centageOrdered By: Uyen Cortes on 05-26-2025 Nucleated RBC/100 WBC (Bld) [Ratio] 0 % 0-5 [facility] Platelet countOrdered By: Reji Cortes on 05-26-2025 Platelets (Bld) [#/Vol] 258 10*3/uL 150-450 [facility] Potassium measurement (mass/ volume)Ordered By: Uyen Cortes on 05-26-2025 Potassium (Unsp spec) [Mass/Vol] 4.1 mmol/L 3.3-5.1 [facility] RBC Auto (Bld) [#/Vol]Ordere d By: Uyen Cortes on 05-26-2025 RBC (Bld) [#/Vol] 5.03 10*6/uL 4.2-5.4 [facility] Serum creatinine measurement (mass/volume)Ordered By: Uyen Cortes on 05-26-2025 Creatinine [Mass/Vol] 1.05 mg/dL 0.70-1.20 [facility] Serum globulin measurementOr dered By: Uyen Cortes on 05-26-2025 Globulin (S) [Mass/Vol] 3.5 g/dL 2.2-4.2 [facility] Serum glucose measurement (m ass/volume)Ordered By: Uyen Cortes on 05-26-2025 Glucose [Mass/Vol] 84 mg/dL 70-99 [facility] Serum or plasma alanine nichols otransferase (ALT) measurementOrdered By: Uyen Cortes on 05-26-2025 ALT [Catalytic activity/Vol] 23 U/L <35 [facility] Serum or plasma albumin gabrielle urement (mass/volume)Ordered By: Uyen Cortes on 05-26-2025 Albumin [Mass/Vol] 4.3 g/dL 3.5-5.0 [facility] Serum or plasma albumin/glob ulin mass ratioOrdered By: Uyen Cortes on 05-26-2025 Albumin/Globulin [Mass ratio] 1.2 {ratio} 0.9-2.4 [facility] Serum or plasma alkaline le sphatase measurementOrdered By: Uyen Cortes on 05-26-2025 ALP [Catalytic activity/Vol] 99 U/L 35-104 [facility] Serum or plasma calcium gabrielle urement (mass/volume)Ordered By: Uyen oCrtes on 05-26-2025 Calcium [Mass/Vol] 9.5 mg/dL 7.6-11.0 [facility] Serum or plasma urea nitroge n measurement (mass/volume)Ordered By: Uyen Cortes on 05-26-2025 Urea nitrogen [Mass/Vol] 13 mg/dL 4-19 [facility] Sodium levelOrdered By: Jayjay Cortes on 05-26-2025 Sodium [Moles/Vol] 136 mmol/L 133-145 [facility] Total proteinOrdered By: Soham Cortes on 05-26-2025 Protein [Mass/Vol] 7.8 g/dL 5.9-8.4 [facility] White blood cell (WBC) count Ordered By: Uyen Cortes on 05-26-2025 WBC (Bld) [#/Vol] 6.0 10*3/uL 4.4-11.0 [facility] 05-19-2025 [facility] Telephone (OBGMEM) LILI JIMENEZ ([id number]) 1980 F Date Time Provider Department 05/19/25 CAMI BAH During your visit today, we recorded the following information about you: Blanche Aguilar Ma 05/19/2025 9:52 AM Signed Called patient to inform today's visit cancelled. Left message advising patient to call in with any concerns or questions and to reschedule phone post op if needed. Allergies As of Date: 05/19/2025 Noted Allergy Reaction BLUE DYE 03/13/2011 6 - Diarrhea 11 - Vomiting IMITREX (SUMATRIPTAN SUCCINATE) 03/13/2011 5 - Intolerance Date Reviewed: 05/11/2025 Reviewed by: Kathleen Hyawood, RN - Fully Assessed Reason for Visit: Appointment [186] Prescriptions as of 05/19/2025 - amLODIPine (NORVASC) 5 mg tablet Take 10 mg by mouth once daily. - DULoxetine (CYMBALTA) 30 mg capsule Take 30 mg by mouth daily at bedtime. - hydrOXYchloroQUINE (PLAQUENIL) 200 mg tablet Take 300 mg by mouth once daily. - loratadine (CLARITIN) 10 mg tablet Take 10 mg by mouth. - pantoprazole DR (PROTONIX) 40 mg tablet Take 40 mg by mouth once daily. Problem List As Of Date 05/19/2025 Noted Resolved Rosacea [L71.9] Right tubal without intrauterine preg*04/25/2019 05/12/2019 History of ectopic [Z87.59] 04/25/2019 Gastroesophageal reflux disease without esophag*08/27/2021 Family history of breast cancer in mother [Z80.*01/06/2025 Encounter for sterilization [Z30.2] 05/11/2025 05/11/2025 Encounter Status:Closed by SHELIA CORTEZ BLANCHE on 05/19/25 [facility] ANES POSTPROC EVALon 025 ANES POSTPROC EVAL HNO ID: [id number] Author: ZHAO MALDONADO MD Service: Anesthesiology Author Type: Anesthesiologist Type: Anesthesia Postprocedure Evaluation Filed: 05/11/2025 14:53 Note Text: POST ANESTHESIA EVALUATION NOTE : 1980 Procedure Summary Date: 05/11/25 Room / Location: [place] [address] / [place] Anesthesia Start: 1331 Anesthesia Stop: 1437 Procedure: vNOTES LAPAROSCOPIC LEFT SALPINGECTOMY (Left: Vagina ) Diagnosis: Encounter for sterilization (Encounter for sterilization [Z30.2]) Surgeons: Cami Bah MD Responsible Provider: Zhao Maldonado MD Anesthesia Type: general ASA Status: 2 Anesthesia Type: general Airway Type: ETT Last Vitals Vitals Value Taken Time BP 115/72 05/11/25 1445 Temp 36.6 ?C (97.9 ?F) 05/11/25 1440 Pulse 67 05/11/25 1451 Resp 16 05/11/25 1451 SpO2 100 % 05/11/25 1451 Vitals shown include unfiled device data. Post Anesthesia Patient Status Patient Evaluation: bedside. Anticipated Disposition: phase 2 then home. Neurological Status: aware and responsive. Pulmonary Status: breathing comfortably on room air Airway Control: returned to baseline unsupported. Cardiovascular Status: stable. Pain Management: clinically adequate Postoperative Hydration: acceptable. Intraoperative Events: no significant anesthesia events Post Operative Nausea/Vomiting Status: no significant post operative nausea or vomiting Recommendation: continue current plan of care. Anesthesia Observations No Documentation SIGNATURE: Zhao Maldonado MD PATIENT NAME: Lili Jimenez DATE: May 11, 2025 TIME: 2:53 PM CSN: [id number] [facility] ANES PRE-OPon 05-11-2025 ANES PRE-OP HNO ID: [id number] Author: CAMI RUIZ MD Service: Anesthesiology Author Type: Anesthesiologist Type: Anesthesia Preprocedure Evaluation Filed: 05/11/2025 11:42 Note Text: ANESTHESIOLOGY DAY OF SURGERY NOTE : 1980 Procedure Information Date/Time: 05/11/25 1153 Procedure: vNOTES LAPAROSCOPIC LEFT SALPINGECTOMY (Left) Location: [place] [facility] [place] Surgeons: Cami Bah MD Estimated body mass index is 27.4 kg/m? as calculated from the following: Height as of this encounter: 154.9 cm (5' 1). Weight as of this encounter: 65.8 kg (145 lb). Most recent hematocrit and potassium results: Hematocrit 45.0 04/25/2019 Potassium 4.2 04/25/2019 Relevant Problems GI (+) Gastroesophageal reflux disease without esophagitis NEURO-PSYCH (+) History of ectopic I - PHYSICAL EVALUATION AIRWAY Patient intubated: No. Tracheostomy tube not present Mallampati: II. TM distance: >3 FB. Neck ROM: full ROM without neurological symptoms. Mouth opening: adequate. Short neck: no. Thick neck: no DENTAL Dental findings: teeth intact. Additional exam findings: yes. CARDIOVASCULAR Rhythm: regular Rate: normal PULMONARY Breath sounds clear to auscultation. II - ANESTHESIA PLAN ASA Score: 2 Anesthetic Plan: general Airway type: ETT The patient is not a current smoker. NPO Status: adequate Beta Asya Monitoring Plan Monitoring plan: Standard ASA. Post Procedure Analgesic Plan Postoperative analgesic plan: parenteral or oral opioids and multimodal analgesia. Informed Consent Anesthetic risks, benefits, alternatives, personnel and consent discussed: yes. Patient / Responsible Alliance Party agrees to proceed: yes Patient / Surrogate agrees to blood products: yes DNR status not reviewed with patient and/or family prior to surgery. Significant changes in the patient condition since the History and Physical, not otherwise documented in primary service progress note: no. Potential Anesthesia issues that may suggest increased risk of complications or contraindication to planned procedure: none. Vitals Value Taken Time BP 145/85 05/11/25 1045 Pulse 85 05/11/25 1045 Resp 18 05/11/25 1045 Temp 36.5 ?C (97.7 ?F) 05/11/25 1045 SpO2 100 % 05/11/25 1045 Facility-Administered Medications as of 05/11/2025 Medication Dose Route Frequency [COMPLETED] acetaminophen 1,000 mg tab(s) (TYLENOL) 1,000 mg ORAL Pre-Op Once [COMPLETED] promethazine 12.5 mg tab(s) (PHENERGAN) 12.5 mg ORAL Pre-Op Once scopolamine (delivers 1 mg over 3 days) 1 patch (TRANSDERM-SCOP) 1 patch TRANSDERMAL ONCE scopolamine - VERIFY patch OTHER q 8 H [START ON 05/12/2025] scopolamine - REMOVE PATCH OTHER ONCE [COMPLETED] famotidine 20 mg injection (PEPCID) 20 mg INTRAVENOUS Pre-Op Once [COMPLETED] celecoxib 200 mg cap(s) (CeleBREX) 200 mg ORAL ONCE Outpatient Medications as of 05/11/2025 Medication Sig amLODIPine (NORVASC) 5 mg tablet Take 10 mg by mouth once daily. hydrOXYchloroQUINE (PLAQUENIL) 200 mg tablet Take 300 mg by mouth once daily. loratadine (CLARITIN) 10 mg tablet Take [address] (PROTONIX) 40 mg tablet Take 40 mg by mouth once daily. DULoxetine (CYMBALTA) 30 mg capsule Take 30 mg by mouth daily at bedtime. (Patient not taking: Reported on 04/27/2025) I have interviewed and examined the patient. I have reviewed the medical record and/or the pre-anesthesia evaluation, pertinent labs, and test results. This contains updated information obtained within 48 hours of Surgery/Procedure. SIGNATURE: Cami Ruiz MD PATIENT NAME: Lili Jimenez DATE: May 11, 2025 TIME: 11:40 AM CSN: [id number] [facility] OPERATIVE NOon 05-11-2025 OPERATIVE NO HNO ID: [id number] Author: CAMI BAH MD Service: Gynecology Author Type: Physician Type: Operative Report Filed: 05/18/2025 11:17 Note Text: OPERATIVE / PROCEDURE NOTE LOG ID: [id number] SURGERY/PROCEDURE DATE: 05/11/2025 INCISION/PROCEDURE START TIME: 1:46 PM INCISION CLOSE/PROCEDURE END TIME: 2:16 PM SURGEON(S)/PROCEDURALI ST(S) AND TELEVISION REPORTER(S): Surgeons and Role: * Cami Bah MD - Primary - performed entire procedure with assistance Physician Bass Mechanism Maker: Adali Garcia PA-C - performed laparoscopy No qualified resident/fellow was available SURGERY/PROCEDURE(S): laparoscopic left salpingectomy ANESTHESIA: General FINDINGS: right fallopian tube absent ESTIMATED BLOOD LOSS: 25 mls SPECIMENS: left fallopian tube COMPLICATIONS: None CLOSURE TECHNIQUE: Primary PRE-OP/PRE-PROCEDURE DIAGNOSIS: Desires permanent sterilization POST-OP/POST-PROCEDURE DIAGNOSIS: Same as Preop Procedure Details: Patient was taken to the operating room where the sign-in and time out were completed. General anesthesia was induced and found to be adequate. She was placed in a dorsal lithotomy position. Exam under anesthesia was performed. The abdomen, perineum and vagina were prepped and draped in the usual sterile fashion. SCDs were placed and turned on for DVT prophylaxis. A Roberts catheter was placed in the urinary bladder under sterile conditions The cervix was grasped with a single tooth tenaculum. Cervix was injected posteriorly with a dilute solution of vasopressin, 20 units of vasopressin mixed in 100 mL. The vaginal mucosa was the dissected off the cervix entering the posterior cul-de-sac sharply. The vNOTES ring was then placed into the posterior cul de sac using the introducer. The gel port was attached and the abdomen insufflated with CO2 gas. The 5 mm, 0 degree laparoscope was introduced with good visualization. The bowel was swept out of the pelvis and the ureters were well clear of the operative site. Attention then turned to left salpingectomy. The left fimbriated end of the tube was grasped and the Ligasure device was used to transect the tube and remove through the gel port. The gel port was removed. The gas was allowed to escape from the patient's abdomen. Hemostasis again noted. The vaginal cuff, including the posterior peritoneum, was closed with running 0-vicryl sutures horizontally. The roberts catheter was removed. All instruments removed from the vagina. Counts correct. Vaginal sweep clear. The patient tolerated the procedure well and was taken to the recovery room in stable condition. Cami Bah MD SIGNATURE: Cami Bah MD PATIENT NAME: Lili Jimenez DATE: May 11, 2025 TIME: 2:41 PM [facility] Pathology biopsy report Everardo (Tiss)on 05-11-2025 AP DISCLAIMER [facility] Comment on above: Order Comment: Speci men Type: TISSUE SPECIMEN Ordering Facility: [facility] Address: [address] [place] [address] Result Comment: Noah Tipton Test (LDT) Disclaimer: Performance characteristics of immunohistochemical, immunofluorescent, and chromogenic in-situ hybridization tests have been determined by the performing laboratory within [facility]'s [facility] Pathology and Laboratory Medicine Department ([facility], [facility], [facility], [facility], [facility], [facility], or [facility]) in a manner consistent with CLIA requirements. One or more of these tests may not have been cleared or approved by the FDA. [facility] is regulated under CLIA as qualified to perform high-complexity testing. These tests are used for clinical purposes. These should not be regarded as investigational or for research. Positive and negative controls stain appropriately. Performed By: #### 6 6121-5 #### [facility] CLIA [id number] [address] [place] [address] [place] CASE REPORT Normal [facility] Comment on above: Order Comment: Speci men Type: TISSUE SPECIMEN Ordering Facility: [facility] Address: [address] [place] [address] Result Comment: Surg ica Pathology Report Case: [id number] Authorizing Provider: Cami Bah, Collected: 05/11/2025 01:53 PM Ordering Location: [facility] Surgery Received: 05/11/2025 03:39 PM Pathologist: Felix Faustin MD Specimen: Fallopian Tube, Left, Resection, left fallopian tube Performed By: #### 6 6121-5 #### [facility] CLIA [id number] [address] [place] [address] [place] CLINICAL HISTORY Normal [facility] Comment on above: Order Comment: Speci men Type: TISSUE SPECIMEN Ordering Facility: [facility] Address: [address] [place] [address] Result Comment: Pre- op diagnosis: Encounter for sterilization [Z30.2] Performed By: #### 6 6121-5 #### [facility] CLIA [id number] [address] [place] [address] FINAL DIAGNOSIS Normal [facility] Comment on above: Order Comment: Speci men Type: TISSUE SPECIMEN Ordering Facility: [facility] Address: [address] [place] [address] Result Comment: A. F allopian tube, left, salpingectomy: ---Benign fallopian tube with a paratubal cyst. at 1310 EDT Performed By: #### 6 6121-5 #### [facility] CLIA [id number] [address] [place] [address] [facility] FINAL PERFORMING LAB [facility] Comment on above: Order Comment: Speci men Type: TISSUE SPECIMEN Ordering Facility: [facility] Address: [address] [place] [address] Result Comment: Diag nostic interpretation performed at: [facility], [address] [place] [address] CLIA# [id number] Ferruler: Frankie Chauhan MD Performed By: #### 6 6121-5 #### [facility] CLIA [id number] [address] [place] [address] GROSS DESCRIPTION Normal [facility] Comment on above: Order Comment: Speci men Type: TISSUE SPECIMEN Ordering Facility: [facility] Address: [address] [place] [address] Result Comment: A. F allopian Tube, Left, Resection Received in formalin labeled as left fallopian tube resection is 1 designated fimbriated fallopian tube measuring 2.0 cm in length by 1.4 cm in diameter. The serosal aspect is casiano-pink to purple, smooth and glistening with 1 pedunculated clear casiano paratubal cyst measuring 0.6 x 0.5 x 0.4 cm and located 0.8 cm from the a fimbriated end. The fimbriated end has a normal villous appearance. The lumen is pinpoint and unremarkable. Windows Application Administrator sections with the bisected fimbriated end and paratubal cyst are submitted in 1 cassette SEP/MLG 05/12/25 7:17 AM Gross examination performed at [facility], [address] [place] [address] Performed By: #### 6 6121-5 #### [facility] CLIA [id number] [address] [place] [address] [place] [address] [place] HISTORY PHYSICALon HISTORY PHYSICAL HNO ID: [id number] Author: TARYN LOYA PA-C Service: ? Author Type: Physician Bass Mechanism Maker Type: H&P Filed: 04/27/2025 13:03 Note Text: [facility] HISTORY AND PHYSICAL EXAMINATION SERVICE DATE: 04/27/2025 SERVICE TIME: 12:39 PM Recording using [employer] software for draft documentation of the visit was discussed with the patient/authorized aircraft sales representative; all questions welcomed and answered. Patient/authorized aircraft sales representative agreed to proceed. PRIMARY CARE PHYSICIAN: No primary care provider on file. Assessment Patient has the following medical conditions which may affect amy-operative course: 1. Rheumatoid arthritis, involving unspecified site, unspecified whether rheumatoid factor present (HCC) (M06.9) - Managed by rheumatology; currently on Plaquenil. - Considering stronger medication that is contraindicated in , hence the elective laparoscopic salpingectomy scheduled with Dr. Bah on May 11. 2. Raynaud's disease without gangrene (I73.00) - Symptoms primarily triggered by temperature changes. - Controlled with Norvasc; no complications reported. 3. Gastro-esophageal reflux disease without esophagitis (K21.9) - Well-controlled with Protonix and dietary modifications. ANESTHESIA FINDINGS: Intubation History: No history of difficult intubation. No abnormal airway history Significant Anesthesia Considerations: none Airway History: No history of difficult airway No abnormal airway history Eldridge Activity Status Index: METS: Walk indoors, such as around the house (1.75 METs) Do light work around the house, such as dusting or washing dishes (2.70 METs) Take care of self; that is eating, dressing, bathing, using the toilet (2.75 METs) Walk a block or two on level ground (2.75 METs) Do moderate work around the house, such as vacuuming, sweeping floors, or carrying in groceries (3.50 METs) Do yardwork, such as raking leaves, weeding, or pushing a power mower (4.50 METs) Climb a flight of stairs or walk up a hill (5.50 METs) DASI Score: 23.45 Patient denies any chest pain or undue shortness of breath with the above physical activity. Clinical Frailty Scale: 3. Well, with treated comorbid disease STOP-Bang Score: Snores loudly Denies feeling tired, fatigued, or sleepy during the daytime Has not been observed to stop breathing or choking/gasping during sleep Denies having high blood pressure BMI less than or equal to 35 kg/m2 Patient 50 years old or younger Does not have a large neck Non-male patient STOP-Bang Score: 1 I - PHYSICAL EVALUATION AIRWAY Patient intubated: No. Tracheostomy tube not present Mallampati: I. TM distance: >3 FB. Neck ROM: full ROM without neurological symptoms. Mouth opening: adequate. Short neck: no. Thick neck: no DENTAL Dental findings: teeth intact. II - ANESTHESIA PLAN Beta Asya Monitoring Plan Post Procedure Analgesic Plan Prepared for Surgery: optimally prepared for surgery. CONSULTS: Patient does not require consults for optimization at this time Planned Anesthetic: anesthesia choice The Following Tests/Procedures Have Been Initiated: No orders of the defined types were placed in this encounter. REASON FOR VISIT: Lili Jimenez is a 44 year old female who is scheduled for Procedure(s): LAPAROSCOPIC SALPINGECTOMY (Left) at the request of Dr. Cami Bah for consultation. My final recommendation will be communicated back to the requesting physician by way of shared medical record or letter. Subjective The patient has the following: COVID-19 Immunization Status Current Care Gaps Covid-19 Vaccine ( season) Overdue since 06/20/2024 08/10/2021 Imm Admin: COVID-19 vaccine (ALICE) CHIEF COMPLAINT: Pre-op HPI: Lili Jimenez is a 44-year-old female with a history of Raynaud's phenomenon, rheumatoid arthritis, and GERD, presenting for preoperative evaluation prior to a laparoscopic salpingectomy scheduled for 05/11/2023. Lili is scheduled for a laparoscopic salpingectomy on 05/11/[address] Bah at [place]. This is an elective sterilization procedure. She has a history of a right salpingectomy in 2019 due to an ectopic , which was an emergency surgery. She also had a septal repair in 2014. She denies any current abdominal pain or abnormal vaginal bleeding. REVIEW OF SYSTEMS: General: No weight loss, malaise or fevers. Neurological: Negative for: dementia, headaches, impaired sensorium, peripheral neuropathy, seizures, TIA and strokes. Respiratory: Negative for: asthma, bronchitis, COPD, current cough, bronchodilator used daily for the last 3 months, dyspnea, home oxygen, orthopnea, pneumonia within 6 weeks, tobacco use, URI < 2 weeks and obstructive sleep apnea. Cardiovascular: +Raynauds. Denies dizziness or syncope. Negative for: abdominal aortic (more content not included)... Normal [facility] Absolute lymphocyte countOrd ered By: [facility] Sebastian on 02-22-2025 Lymphocytes Auto (Unsp spec) [#/Vol] 2.36 10*3/uL 0.83-4.51 [facility] Absolute neutrophil countOrd ered By: [facility] Sebastian on 02-22-2025 Neutrophils (Bld) [#/Vol] 4.1 10*3/uL 2.0-7.7 [facility] Anion gap in Serum or Plasma Ordered By: Uyen Cortes on 02-22-2025 Anion gap [Moles/Vol] 11 mmol/L 5-15 [facility] Automated lymphocyte count a s percentage of total leukocytesOrdered By: [facility] Sebastian on 02-22-2025 Lymphocytes/100 WBC Auto (Unsp spec) 32.2 % 19-41 [facility] BUN/creatinine ratioOrdered By: [facility] on 02-22-2025 Urea nitrogen/Creatinine [Mass ratio] 13.1 mg/mg 10-20 [facility] Basophil percentageOrdered B y: Uyen Cortes on 02-22-2025 Basophils/100 WBC (Bld) 0.8 % 0-1 [facility] Bilirubin, totalOrdered By: Uyennisha Cortes on 02-22-2025 Bilirubin [Mass/Vol] 0.31 mg/dL 0.00-1.[address] [facility] CBC W/Diff, Automatedon 05-0 6-2024 Absolute Lymph 2.36 X10 3/uL Normal 0.83-4.51 [facility] Comment on above: Performed By: #### L 500.4050, L7000.5800, L100.0100 #### [facility] [address] [place], [address] Absolute Neut 4.1 X10 3/uL Normal 2.0-7.7 [facility] Comment on above: Performed By: #### L 500.4050, L7000.5800, L100.0100 #### [facility] [address] [place], [address] Basophils/100 WBC (Bld) 0.8 % Normal 0-1 [facility] Comment on above: Performed By: #### L 500.4050, L7000.5800, L100.0100 #### [facility] [address] [place], [address] Eosinophils/100 WBC (Bld) 1.9 % Normal 0-5 [facility] Comment on above: Performed By: #### L 500.4050, L7000.5800, L100.0100 #### [facility] [address] [place], [address] Erythrocyte distribution width (RBC) [Ratio] 13.7 % Normal 11.6-14.6 [facility] Comment on above: Performed By: #### L 500.4050, L7000.5800, L100.0100 #### [facility] [address] [place], [address] Hematocrit (Bld) [Volume fraction] 38.7 % Normal 37-47 [facility] Comment on above: Performed By: #### L 500.4050, L7000.5800, L100.0100 #### [facility] [address] [place], [address] Hemoglobin (Bld) [Mass/Vol] 12.6 g/dL Normal 12.0-15.0 [facility] Comment on above: Performed By: #### L 500.4050, L7000.5800, L100.0100 #### [facility] [address] [place], [address] IG% 0.400 Normal 0.0-0.9 [facility] Comment on above: Result Comment: IG% - Immature Granulocytes (promyelocytes, myelocytes and metamyelocytes) > 1% indicates that a LEFT SHIFT is Present. Performed By: #### L 500.4050, L7000.5800, L100.0100 #### [facility] [address] [place], [address] Lymphocytes/100 WBC (Bld) 32.2 % Normal 19-41 [facility] Comment on above: Performed By: #### L 500.4050, L7000.5800, L100.0100 #### [facility] [address] [place], [address] MCH (RBC) [Entitic mass] 27.5 pg Normal 27.0-32.0 [facility] Comment on above: Performed By: #### L 500.4050, L7000.5800, L100.0100 #### [facility] [address] [place], [address] MCHC (RBC) [Mass/Vol] 32.6 g/dL Normal 32-36 [facility] Comment on above: Performed By: #### L 500.4050, L7000.5800, L100.0100 #### [facility] [address] [place], [address] MCV (RBC) [Entitic vol] 84.5 fL Normal 81-99 [facility] Comment on above: Performed By: #### L 500.4050, L7000.5800, L100.0100 #### [facility] [address] [place], [address] Monocytes/100 WBC (Bld) 8.9 % Normal 0-10 [facility] Comment on above: Performed By: #### L 500.4050, L7000.5800, L100.0100 #### [facility] [address] [place], [address] Neutrophils/100 WBC (Bld) 55.8 % Normal 47-70 [facility] Comment on above: Performed By: #### L 500.4050, L7000.5800, L100.0100 #### [facility] [address] [place], [address] Nucleated RBC (Bld) [#/Vol] 0 10*3/uL Normal 0-5 [facility] Comment on above: Performed By: #### L 500.4050, L7000.5800, L100.0100 #### [facility] [address] [place], [address] Platelet mean volume (Bld) [Entitic vol] 10.1 fL Normal 6.2-12.0 [facility] Comment on above: Performed By: #### L 500.4050, L7000.5800, L100.0100 #### [facility] [address] [place], [address] Platelets (Bld) [#/Vol] 270 10*3/uL Normal 150-450 [facility] Comment on above: Performed By: #### L 500.4050, L7000.5800, L100.0100 #### [facility] [address] [place], [address] RBC (Bld) [#/Vol] 4.58 10*6/uL Normal 4.2-5.4 [facility] Comment on above: Performed By: #### L 500.4050, L7000.5800, L100.0100 #### [facility] [address] [place], [address] RDW SD 42.3 fl Normal 35.1-43.9 [facility] Comment on above: Performed By: #### L 500.4050, L7000.5800, L100.0100 #### [facility] [address] [place], [address] WBC (Bld) [#/Vol] 7.3 10*3/uL Normal 4.4-11.0 [facility] Comment on above: Performed By: #### L 500.4050, L7000.5800, L100.0100 #### [facility] [address] [place], [address] Carbon dioxide, total [Moles /volume] in Central venous bloodOrdered By: Uyen Cortes on 02-22-2025 CO2 [Moles/Vol] 23.8 mmol/L 21.0-32.0 [facility] Chloride assayOrdered By: Reji Cortes on 02-22-2025 Chloride [Moles/Vol] 103 mmol/L 98-[address] [facility] Comprehensive Metabolic Prof ilon 02-22-2025 Albumin [Mass/Vol] 4.1 g/dL Normal 3.5-5.0 [facility] Comment on above: Performed By: #### L 500.4050, L7000.5800, L100.0100 #### [facility] [address] [place], [address] Albumin/Globulin [Mass ratio] 1.3 {ratio} Normal 0.9-2.4 [facility] Comment on above: Performed By: #### L 500.4050, L7000.5800, L100.0100 #### [facility] [address] [place], [address] ALK PHOS 86 U/L Normal 35-104 [facility] Comment on above: Performed By: #### L 500.4050, L7000.5800, L100.0100 #### [facility] [address] [place], [address] ALT [Catalytic activity/Vol] 22 U/L Normal <=34 [facility] Comment on above: Performed By: #### L 500.4050, L7000.5800, L100.0100 #### [facility] [address] [place], [address] AST [Catalytic activity/Vol] 26 U/L Normal <=31 [facility] Comment on above: Performed By: #### L 500.4050, L7000.5800, L100.0100 #### [facility] [address] [place], [address] Bilirubin [Mass/Vol] 0.31 mg/dL Normal 0.00-1.[address] [facility] Comment on above: Performed By: #### L 500.4050, L7000.5800, L100.0100 #### [facility] [address] [place], [address] BUN/CRE 13.1 RATIO Normal 10-20 [facility] Comment on above: Performed By: #### L 500.4050, L7000.5800, L100.0100 #### [facility] [address] [place], [address] Calcium [Mass/Vol] 9.0 mg/dL Normal 7.6-11.0 [facility] Comment on above: Performed By: #### L 500.4050, L7000.5800, L100.0100 #### [facility] [address] [place], [address] Chloride [Moles/Vol] 103 mmol/L Normal 98-[address] [facility] Comment on above: Performed By: #### L 500.4050, L7000.5800, L100.0100 #### [facility] [address] [place], [address] CO2 [Moles/Vol] 23.8 mmol/L Normal 21.0-32.0 [facility] Comment on above: Performed By: #### L 500.4050, L7000.5800, L100.0100 #### [facility] [address] [place], [address] Creatinine [Mass/Vol] 0.85 mg/dL Normal 0.70-1.20 [facility] Comment on above: Performed By: #### L 500.4050, L7000.5800, L100.0100 #### [facility] [address] [place], [address] GAP 11 Normal 5-15 [facility] Comment on above: Performed By: #### L 500.4050, L7000.5800, L100.0100 #### [facility] [address] [place], [address] GFR/1.73 sq M.predicted among non-blacks MDRD (S/P/Bld) [Vol rate/Area] 88 mL/min/{1.73_m2} Normal >60 [facility] Comment on above: Result Comment: mL/m in/1.73m2 CKD-EPI Creatinine Equation (2020) Performed By: #### L 500.4050, L7000.5800, L100.0100 #### [facility] [address] [place], [address] Globulin (S) [Mass/Vol] 3.1 g/dL Normal 2.2-4.2 [facility] Comment on above: Performed By: #### L 500.4050, L7000.5800, L100.0100 #### [facility] [address] [place], [address] Glucose [Mass/Vol] 81 mg/dL Normal 70-99 [facility] Comment on above: Performed By: #### L 500.4050, L7000.5800, L100.0100 #### [facility] [address] [place], [address] Potassium [Moles/Vol] 3.4 mmol/L Normal 3.3-5.1 [facility] Comment on above: Performed By: #### L 500.4050, L7000.5800, L100.0100 #### [facility] [address] [place], [address] Sodium [Moles/Vol] 137 mmol/L Normal 133-145 [facility] Comment on above: Performed By: #### L 500.4050, L7000.5800, L100.0100 #### [facility] [address] [place], [address] T PROT 7.2 g/dL Normal 5.9-8.4 [facility] Comment on above: Performed By: #### L 500.4050, L7000.5800, L100.0100 #### [facility] [address] [place], [address] Urea nitrogen [Mass/Vol] 11 mg/dL Normal 4-19 [facility] Comment on above: Performed By: #### L 500.4050, L7000.5800, L100.0100 #### [facility] [address] [place], [address] Eosinophil percentageOrdered By: Uyen Cortes on 02-22-2025 Eosinophils/100 WBC (Bld) 1.9 % 0-5 [facility] Erythrocyte distribution wid th ratioOrdered By: Uyen Cortes on 02-22-2025 Erythrocyte distribution width (RBC) [Ratio] 13.7 % 11.6-14.6 [facility] Erythrocyte distribution wid th standard deviationOrdered By: Uyen Cortes on 02-22-2025 Erythrocyte distribution width (RBC) [Ratio] 42.3 fl 35.1-43.9 [facility] Glomerular filtration rate ( GFR) estimation/1.73 sq m using serum, plasma, or whole bOrdered By: Uyen Cortes on 02-22-2025 GFR/1.73 sq M.predicted among non-blacks MDRD (S/P/Bld) [Vol rate/Area] 88 mL/min/{1.73_m2} >60 [facility] Comment on above: mL/min/1.73m2 CKD-EP I Creatinine Equation (2020) Hematocrit Auto (Bld) [Volum e fraction]Ordered By: Uyennisha Cortes on 02-22-2025 Hematocrit (Bld) [Volume fraction] 38.7 % 37-47 [facility] Hemoglobin measurementOrdere d By: Uyen Cortes on 02-22-2025 Hemoglobin (Bld) [Mass/Vol] 12.6 g/dL 12.0-15.0 [facility] Immature granulocytes/100 WB C Auto (Bld)Ordered By: Uyen Cortes on 02-22-2025 Immature granulocytes/100 WBC (Bld) 0.400 % 0.0-0.9 [facility] Comment on above: IG% - Immature Granu locytes (promyelocytes, myelocytes and metamyelocytes) > 1% indicates that a LEFT SHIFT is Present. Laboratory - Chemistry and C hemistry - challengeOrdered By: Uyen Cortes on 02-22-2025 AST [Catalytic activity/Vol] 26 U/L <32 [facility] MCV (mean corpuscular volume ) determinationOrdered By: Uyen Cortes on 02-22-2025 MCV (RBC) [Entitic vol] 84.5 fL 81-99 [facility] Mean corpuscular hemoglobin (MCH) determinationOrdered By: Uyen Cortes on 02-22-2025 MCH (RBC) [Entitic mass] 27.5 pg 27.0-32.0 [facility] Mean corpuscular hemoglobin concentration (MCHC) determinationOrdered By: Uyen Cortes on 02-22-2025 MCHC (RBC) [Mass/Vol] 32.6 g/dL 32-36 [facility] Mean platelet volume determi nationOrdered By: Uyen Cortes on 02-22-2025 Platelet mean volume (Bld) [Entitic vol] 10.1 fL 6.2-12.0 [facility] Monocyte percentageOrdered B y: Uyen Cortes on 02-22-2025 Monocytes/100 WBC (Bld) 8.9 % 0-10 [facility] Neutrophil percentageOrdered By: Uyen Cortes on 02-22-2025 Neutrophils/100 WBC (Bld) 55.8 % 47-70 [facility] Nucleated red blood cell per centageOrdered By: Uyen Cortes on 02-22-2025 Nucleated RBC/100 WBC (Bld) [Ratio] 0 % 0-5 [facility] Platelet countOrdered By: Reji Cortes on 02-22-2025 Platelets (Bld) [#/Vol] 270 10*3/uL 150-450 [facility] Potassium measurement (mass/ volume)Ordered By: Uyen Cortes on 02-22-2025 Potassium (Unsp spec) [Mass/Vol] 3.4 mmol/L 3.3-5.1 [facility] RBC Auto (Bld) [#/Vol]Ordere d By: Uyen Cortes on 02-22-2025 RBC (Bld) [#/Vol] 4.58 10*6/uL 4.2-5.4 [facility] Serum creatinine measurement (mass/volume)Ordered By: Uyen Cortes on 02-22-2025 Creatinine [Mass/Vol] 0.85 mg/dL 0.70-1.20 [facility] Serum globulin measurementOr dered By: Uyen Cortes on 02-22-2025 Globulin (S) [Mass/Vol] 3.1 g/dL 2.2-4.2 [facility] Serum glucose measurement (m ass/volume)Ordered By: Uyen Cortes on 02-22-2025 Glucose [Mass/Vol] 81 mg/dL 70-99 [facility] Serum or plasma alanine nichols otransferase (ALT) measurementOrdered By: Uyen Cortes on 02-22-2025 ALT [Catalytic activity/Vol] 22 U/L <35 [facility] Serum or plasma albumin gabrielle urement (mass/volume)Ordered By: Uyen Cortes on 02-22-2025 Albumin [Mass/Vol] 4.1 g/dL 3.5-5.0 [facility] Serum or plasma albumin/glob ulin mass ratioOrdered By: Uyen Cortes on 02-22-2025 Albumin/Globulin [Mass ratio] 1.3 {ratio} 0.9-2.4 [facility] Serum or plasma alkaline le sphatase measurementOrdered By: Uyen Cortes on 02-22-2025 ALP [Catalytic activity/Vol] 86 U/L 35-104 [facility] Serum or plasma calcium gabrielle urement (mass/volume)Ordered By: Uyen Cortes on 02-22-2025 Calcium [Mass/Vol] 9.0 mg/dL 7.6-11.0 [facility] Serum or plasma urea nitroge n measurement (mass/volume)Ordered By: Uyen Cortes on 02-22-2025 Urea nitrogen [Mass/Vol] 11 mg/dL 4-19 [facility] Sodium levelOrdered By: Jayjay Cortes on 02-22-2025 Sodium [Moles/Vol] 137 mmol/L 133-145 [facility] Total proteinOrdered By: Soham Cortes on 02-22-2025 Protein [Mass/Vol] 7.2 g/dL 5.9-8.4 [facility] White blood cell (WBC) count Ordered By: Uyen Cortes on 02-22-2025 WBC (Bld) [#/Vol] 7.3 10*3/uL 4.4-11.0 [facility] CNOVon 02-10-2025 CNOV Office Visit (OBGMEM ) LILI JIMENEZ ([id number]) 1980 F Date Time Provider Department 02/10/25 1:30 PM CAMI BAH During your visit today, we recorded the following information about you: Blood pressure Weight Last Period 110/77 65.2 kg 02/10/25 Cami Bah MD 02/10/2025 1:45 PM Signed Patient presents to discuss permanent sterilization. She is planning to start a medical therapy which is contraindicated in . She would like permanent sterilization. Reviewed: PMHX PSHx FHx Meds Allergies Extensive discussion of minimally invasive sterilization approaches including vaginal and abdominal laparoscopic approaches. Discussed risks of bleeding, infection, damage to surrounding organs. Bladder injury, bowel injury, ureteral injury, and delayed diagnosis of bladder, bowel, and ureteral injury discussed. Post operative expectations and recovery discussed. A/P: desires permanent sterilization - laparoscopic left salpingectomy (right already removed) Allergies As of Date: 02/10/2025 Noted Allergy Reaction BLUE DYE 03/13/2011 6 - Diarrhea 11 - Vomiting IMITREX (SUMATRIPTAN SUCCINATE) 03/13/2011 5 - Intolerance Date Reviewed: 02/10/2025 Reviewed by: Blanche Talley MA - Fully Assessed Reason for Visit: Established Patient [175] Primary Visit Diagnosis:Encounter for sterilization [Z30.2] Order(s):SURGICAL REQUEST - ELECTIVE (05/2020) [0023709] Order #: [id number]: 1 Prescriptions as of 02/10/2025 - amLODIPine (NORVASC) 5 mg tablet Take 1 tablet by mouth once daily. - DULoxetine (CYMBALTA) 30 mg capsule Take 30 mg by mouth daily at bedtime. - hydrOXYchloroQUINE (PLAQUENIL) 200 mg tablet Take 300 mg by mouth once daily. - loratadine (CLARITIN) 10 mg tablet Take 10 mg by mouth. - pantoprazole DR (PROTONIX) 40 mg tablet Take 40 mg by mouth once daily. Problem List As Of Date 02/10/2025 Noted Resolved Rosacea [L71.9] Right tubal without intrauterine preg*04/25/2019 05/12/2019 History of ectopic [Z87.59] 04/25/2019 Gastroesophageal reflux disease without esophag*08/27/2021 Family history of breast cancer in mother [Z80.*01/06/2025 Encounter Status:Closed by CAMI BAH on 02/10/25 Normal [facility] CNOVon 01-06-2025 CNOV Office Visit (OBGMEM ) LILI JIMENEZ ([id number]) 1980 F Date Time Provider Department 01/06/25 9:45 AM ROSANA ROA OBGMEM During your visit today, we recorded the following information about you: Respiration Blood pressure Weight Last Period 18/minute 122/68 65 kg 12/23/24 Rosana Roa MD 01/06/2025 12:58 PM Signed Lili is a 44 year old who presents for an annual gynecologic exam without complaints. Thorough past history obtained/updated/revie wed with today's visit. Pt states changes to her past history include: Dx w/RA AND Raynaud's, on Rigging Man offered: Patient declines. The patient consented to the use of ambient [employer] software for draft documentation of the visit consistent with [facility]?s Notice of Privacy Practices. Still get period: Yes Bleeding amount bothersome: No Bleeding between periods: No Period symptoms: Acne; Breast tenderness; Cramps (Tx'd CD1 w/Tylenol) Time with current partner: 27 years Number of lifetime partners: 1 Contraception frequency: Never-> states she AND have discussed AND thinking may be fine with not having kids HPV vaccine: No HPV:negative Last pap smear: 07/2020 NILM/HPV History of abnormal pap: No, all prior PAP smears have been normal Bothersome pelvic pain: No Last mammogram: 2023normal Prior history of abnormal mammogram yes, follow up views benign. Sexually active: Yes History of STDS: None Patient concerns for STD exposure: No. Family hx of chief sales officer malignancy: Breast cancer- mom, Pat aunt AND mult Mat/Pat Gr aunts OB History Gravida2 Para0 Term0 Preterm0 AB2 Living0 SAB1 IAB0 Ectopic1 Multiple0 Live Births0 [place] History LMP: 12/23/2024, Having periods Age at Menarche: 15 Age at First : 37 Age at Menopause: [place] History Comments: Sexual Activity: Yes; Male Contraception: No contraception data on record Menstrual Tracking History Flowsheet Row Office Visit from 01/06/2025 in Obstetrics/Gynecology Period Cycle (Days) 27 Period Duration (Days) 4 Menstrual Flow Moderate PAST MEDICAL HISTORY Diagnosis Date Gastroesophageal reflux disease without esophagitis History of ectopic 04/25/2019 right s/p LS right salpingectomy Hypoglycemia, unspecified Raynaud's phenomenon Rheumatoid arthritis (HCC) Rosacea PAST SURGICAL HISTORY Procedure Laterality Date LAPAROSCOPY W/REMOVAL ADNEXAL STRUCTURES Right 04/25/2019 tube removed due to ectopic NASAL SURGERY PROCEDURE 09/2015 septal repair FAMILY HISTORY Problem Relation Age of Onset Hypertension Mother Kidney Disease Mother Breast Cancer Mother 55 Hypertension Father Kidney Disease Father Coronary Artery Disease Maternal Grandmother Ischemic Heart Disease Maternal Grandfather Cancer Maternal Grandfather Carcinoid Stroke Paternal Grandmother Aneurysm Paternal Grandfather brain Breast Cancer Paternal Aunt Stroke Other Heart Other Breast Cancer Other mult M/P Gr aunt Cervical Cancer No Family History Ovarian cancer No Family History Uterine Cancer No Family History Colon Cancer No Family History Pancreatic Cancer No Family History Prostate Cancer No Family History SOCIAL HISTORY Social History Tobacco Use Smoking status: Never Smokeless tobacco: Never Vaping Use Vaping status: Never Used Substance Use Topics Alcohol use: No Drug use: No REVIEW OF SYSTEMS Abdomen: No abdominal pain, nausea, vomiting, diarrhea, or constipation. Bladder: No dysuria, gross hematuria, urinary frequency, urinary urgency, or incontinence. Breast: No breast lumps, nipple d/c, overlying skin changes, redness or skin retraction and +/-SBE normal. Allergies and current medication updated:Yes SENSITIVE EXAM: The sensitive examination was discussed with the Patient or Patient's Authorized Windows Application Administrator. As applicable, any other physician, advance practice provider, medical student, or other health professional student that will be observing or involved in the sensitive examination for educational or training purposes was discussed with the Patient or Authorized Windows Application Administrator. The Patient or Authorized Windows Application Administrator has agreed to proceed with the sensitive examination. (Sensitive examination includes inspection and/or palpation of the breasts, pelvis, prostate and anorectal regions). EXAM: BP 122/68 Resp 18 Wt 143 lb 4.8 oz (65.0kg) LMP 12/23/2024 GENERAL: pleasant, female in no apparent distress HEENT: Normocephalic, atraumatic, mucus membranes moist, and no lesions NECK: Supple, full range of motion, no adenopathy, and thyroid normal DERMATOLOGY: Normal, without lesions, non-icteric, and non-hirsute BREAST: soft, non-tender, symmetric, no dominant mass, normal nipple-areolar complex, no lymphadenopathy, and no nipple discharge CHEST: Clear to auscultation, Normal inspiratory eff (more content not included)... Normal [facility] HIGH RISK HUMAN PAPILLOMA SHAISTA (HPV), PCR FOR DETECTION AND GENOTYPINGon 01-06-2025 HPV 16 Ag Ql (Unsp spec) Not detected Normal Not detected [facility] Comment on above: Order Comment: Speci men Type: FLUID SPECIMEN Ordering Facility: [facility] Address: [address] [place] [address] Performed By: #### H PVHRT #### [facility] CLIA [id number] [address] [place] [address] [place] HPV 18 Ag Ql (Unsp spec) Not detected Normal Not detected [facility] Comment on above: Order Comment: Speci men Type: FLUID SPECIMEN Ordering Facility: [facility] Address: [address] [place] [address] Performed By: #### H PVHRT #### [facility] CLIA [id number] [address] [place] [address] [place] HPV 31+33+35+39+45+51+52+56 +58+59+66+68 DNA KALPANA+probe Ql (Cvx) Not detected Normal Not detected [facility] Comment on above: Order Comment: Speci men Type: FLUID SPECIMEN Ordering Facility: [facility] Address: [address] [place] [address] Result Comment: High Risk HPV Other Type includes HPV types 31, 33, 35, 39, 45, 51, 52, 56, 58, 59, 66 and 68. Performed By: #### H PVHRT #### [facility] CLIA [id number] [address] [place], [place] [id number] [place] PAP TESTon 01-06-2025 ADEQUACY Normal [facility] Comment on above: Order Comment: Speci men Type: FLUID SPECIMEN Ordering Facility: [facility] Address: [address] [place] [address] Result Comment: Sati sfactory for interpretation. Transformation zone present Excess blood Performed By: #### L [id number] #### [facility] CLIA [id number] [address] [place], [place] [address] [place] [facility] CLIA [id number] [address] [place] [address] [place] CASE REPORT Normal [facility] Comment on above: Order Comment: Speci men Type: FLUID SPECIMEN Ordering Facility: [facility] Address: [address] [place] [address] Result Comment: Gyne cologic Cytology Report Case: [id number] Authorizing Provider: Rosana Roa MD Collected: 01/06/2025 10:15 AM Ordering Location: Obstetrics/Gynecology Received: 01/06/2025 12:25 PM First Screen: Cami Gonzalez CT, ASCP Specimen: Pap Test, ThinPrep, Cervix Performed By: #### L [id number] #### [facility] CLIA [id number] [address] [place], [place] [id number] [place] [facility] CLIA [id number] [address] [place], [place] [address] [place] CLINICAL HISTORY, CYTOLOGY, OYSTER WASHER Routine Exam Normal [facility] Comment on above: Order Comment: Speci men Type: FLUID SPECIMEN Ordering Facility: [facility] Address: [address] [place] [address] Performed By: #### L [id number] #### [facility] CLIA [id number] [address] [place], [place] [address] [place] [facility] CLIA [id number] [address] [place], [place] [address] [place] FINAL PERFORMING LAB Normal [facility] Comment on above: Order Comment: Speci men Type: FLUID SPECIMEN Ordering Facility: [facility] Address: [address] [place] [address] Result Comment: Tech nical component, phlebotomist lab assistant screening performed at [facility], [address] [place] [address] [place] [address] CLIA# [id number] Technical component, phlebotomist lab assistant screening performed at [facility], [address] [place] [address] CLIA# [id number] Diagnostic interpretation performed at [facility], [address] [place] [address] CLIA# [id number] Ferruler: Frankie Chauhan M.D. Performed By: #### L [id number] #### [facility] CLIA [id number] [address] [place] [address] [place] [facility] CLIA [id number] [address] [place] [address] [place] GROSS DESCRIPTION A. Cervix Normal [facility] Comment on above: Order Comment: Speci men Type: FLUID SPECIMEN Ordering Facility: [facility] Address: [address] [place] [address] Result Comment: Glac ial Acetic Acid added. Performed By: #### L [id number] #### [facility] CLIA [id number] [address] [place] [address] [place] [facility] CLIA [id number] [address] [place] [address] [place] INTERPRETATION, CYTOLOGY, OYSTER WASHER Normal [facility] Comment on above: Order Comment: Speci men Type: FLUID SPECIMEN Ordering Facility: [facility] Address: [address] [place] [address] Result Comment: Nega tive for intraepithelial lesion or malignancy. at 0911 EDT Performed By: #### L [id number] #### [facility] CLIA [id number] [address] [place] [address] LABORATORY CLIA [id number] [address] [place] [address] [place] LMP 12/23/2024 Normal [facility] Comment on above: Order Comment: Speci men Type: FLUID SPECIMEN Ordering Facility: [facility] Address: [address] [place] [address] Performed By: #### L [id number] #### [facility] CLIA [id number] [address] [place] [address] LABORATORY CLIA [id number] [address] [place] [address] [place] PAP DISCLAIMER COMMENT The Pap Smear is a screening test for cervical cancer. False negative results occur with all screening tests, emphasizing the need for rescreening at recommended intervals, and clinical correlation. Normal [facility] Comment on above: Order Comment: Speci men Type: FLUID SPECIMEN Ordering Facility: [facility] Address: [address] [place] [address] Performed By: #### L [id number] #### [facility] CLIA [id number] [address] [place] [address] OF [facility] CLIA [id number] [address] [place] [address] [place] Lyme Antibodies,W [place] LYME IgG INTERP Negative Normal . [facility] Comment on above: Result Comment: Posi tive: 5 of the following Borrelia-specific bands: 18,23,28,30,39,41,45,58, 66, and 93. Negative: No bands or banding patterns which do not meet positive criteria. Performed By: #### L 500.4050, L7000.5800, L100.0100 #### [facility] [address] [place], [address] LYME IgM INTERP Negative Normal . [facility] Comment on above: Result Comment: Note : An equivocal or positive EIA result followed by a negative Line Blot result is considered NEGATIVE. An equivocal or positive EIA result followed by a positive Line Blot is considered POSITIVE by the CDC. Positive: 2 of the following bands: 23,39 or 41 Negative: No bands or banding patterns which do not meet positive criteria. Criteria for positivity are those recommended by CDC/ASTPHLD. p23=Osp C, a44=[id number] Note: Sera from individuals with the following may cross react in the Lyme Line Blot assays: other spirochetal diseases (periodontal disease, leptospirosis, relapsing fever, yaws, and pinta); connective autoimmune (Rheumatoid Arthritis and Systemic Lupus Erythematosus and also individuals with Antinuclear Antibody); other infections ([place] Spotted Fever; Nita-Moore Virus, and Cytomegalovirus). Please Note: Lyme immunoblot alone is not recommended for the diagnosis of Lyme disease. Current guidelines recommend the use of a two-tiered approach to Lyme serology testing to improve the sensitivity and specificity of testing. [facility] offers test code 048258 Lyme Disease Serology with Reflex to aid in the diagnosis of Lyme Disease. Performed at: [address] [id number] Strike Operations Officer: Mel Jarrett MD, Phone: [phone] Performed By: #### L 500.4050, L7000.5800, L100.0100 #### [facility] [address] [facility] [place], [place], [id number] P18 Ab Absent Normal . [facility] Comment on above: Performed By: #### L 500.4050, L7000.5800, L100.0100 #### [facility] [address] [facility] [place], [place], [id number] P23 Ab Absent Normal . [facility] Comment on above: Performed By: #### L 500.4050, L7000.5800, L100.0100 #### [facility] [address] [facility] [place], [place], [id number] P28 Ab Absent Normal . [facility] Comment on above: Performed By: #### L 500.4050, L7000.5800, L100.0100 #### [facility] [address] [place], [address] P30 Ab Absent Normal . [facility] Comment on above: Performed By: #### L 500.4050, L7000.5800, L100.0100 #### [facility] [address] [place], [address] P39 Ab Absent Normal . [facility] Comment on above: Performed By: #### L 500.4050, L7000.5800, L100.0100 #### [facility] [address] [place], [address] P41 Ab Present Abnormal . [facility] Comment on above: Performed By: #### L 500.4050, L7000.5800, L100.0100 #### [facility] [address] [place], [address] P41 Ab Absent Normal . [facility] Comment on above: Performed By: #### L 500.4050, L7000.5800, L100.0100 #### [facility] [address] [place], [address] P45 Ab Absent Normal . [facility] Comment on above: Performed By: #### L 500.4050, L7000.5800, L100.0100 #### [facility] [address] [place], [address] P58 Ab Present Abnormal . [facility] Comment on above: Performed By: #### L 500.4050, L7000.5800, L100.0100 #### [facility] [address] [place], [address] P66 Ab Absent Normal . [facility] Comment on above: Performed By: #### L 500.4050, L7000.5800, L100.0100 #### [facility] [address] [place], [address] P93 Ab Absent Normal . [facility] Comment on above: Performed By: #### L 500.4050, L7000.5800, L100.0100 #### [facility] [address] [place], [address] Absolute lymphocyte countOrd ered By: Uyen Cortes on 11-22-2024 Lymphocytes Auto (Unsp spec) [#/Vol] 2.28 10*3/uL 0.83-4.51 [facility] Absolute neutrophil countOrd ered By: [facility] Sebastian on 11-22-2024 Neutrophils (Bld) [#/Vol] 4.6 10*3/uL 2.0-7.7 [facility] Albumin to globulin ratioOrd ered By: [facility] Sebastian on 11-22-2024 Albumin/Globulin [Mass ratio] 1.1 {ratio} 0.9-2.4 [facility] Automated blood erythrocyte countOrdered By: Uyennisha Cortes on 11-22-2024 RBC (Bld) [#/Vol] 4.73 10*6/uL Normal 4.2-5.4 [facility] Comment on above: Performed By: #### L 500.4050, L7000.5800, L100.0100 #### [facility] [address] [place], [address] Automated blood hematocrit ( percentage)Ordered By: Uyen Cortes on 11-22-2024 Hematocrit (Bld) [Volume fraction] 40.3 % Normal 37-47 [facility] Comment on above: Performed By: #### L 500.4050, L7000.5800, L100.0100 #### [facility] [address] [place], [address] Automated lymphocyte count a s percentage of total leukocytesOrdered By: Uyen Cortes on 11-22-2024 Lymphocytes/100 WBC Auto (Unsp spec) 30.6 % 19-41 [facility] Basophil percentageOrdered B y: Uyen Cortes on 11-22-2024 Basophils/100 WBC (Bld) 0.4 % Normal 0-1 [facility] Comment on above: Performed By: #### L 500.4050, L7000.5800, L100.0100 #### [facility] [address] [place], [address] Bilirubin, totalOrdered By: Uyen Cortes on 11-22-2024 Bilirubin [Mass/Vol] 0.50 mg/dL 0.20-1.[address] [facility] Comment on above: For patients on eltr ombopag therapy, use of Dimension [place] TBIL is not recommended. Blood urea nitrogen (BUN)/cr eatinine ratioOrdered By: Uyen Cortes on 11-22-2024 Urea nitrogen/Creatinine [Mass ratio] 14.4 mg/mg 10-20 [facility] CBC W/Diff, Automatedon Absolute Lymph 2.28 X10 3/uL Normal 0.83-4.51 [facility] Comment on above: Performed By: #### L 500.4050, L7000.5800, L100.0100 #### [facility] [address] [place], [address] Absolute Neut 4.6 X10 3/uL Normal 2.0-7.7 [facility] Comment on above: Performed By: #### L 500.4050, L7000.5800, L100.0100 #### [facility] [address] [place], [address] IG% 0.500 Normal 0.0-0.9 [facility] Comment on above: Result Comment: IG% - Immature Granulocytes (promyelocytes, myelocytes and metamyelocytes) > 1% indicates that a LEFT SHIFT is Present. Performed By: #### L 500.4050, L7000.5800, L100.0100 #### [facility] [address] [place], [address] Lymphocytes/100 WBC (Bld) 30.6 % Normal 19-41 [facility] Comment on above: Performed By: #### L 500.4050, L7000.5800, L100.0100 #### [facility] [address] [place], [address] Nucleated RBC (Bld) [#/Vol] 0 10*3/uL Normal 0-5 [facility] Comment on above: Performed By: #### L 500.4050, L7000.5800, L100.0100 #### [facility] [address] [place], [address] RDW SD 43.0 fl Normal 35.1-43.9 [facility] Comment on above: Performed By: #### L 500.4050, L7000.5800, L100.0100 #### [facility] [address] [place], [address] Carbon dioxide measurementOr dered By: Uyen Cortes on 11-22-2024 CO2 [Moles/Vol] 22.0 mmol/L 21.0-32.0 [facility] Chloride measurementOrdered By: Uyen Cortes on 11-22-2024 Chloride [Moles/Vol] 105 mmol/L 98-[address] [facility] Comprehensive Metabolic Prof ilon 11-22-2024 Albumin [Mass/Vol] 4.1 g/dL Normal 3.2-5.0 [facility] Comment on above: Performed By: #### L 500.4050, L7000.5800, L100.0100 #### [facility] [address] [place], [address] Albumin/Globulin [Mass ratio] 1.1 {ratio} Normal 0.9-2.4 [facility] Comment on above: Performed By: #### L 500.4050, L7000.5800, L100.0100 #### [facility] [address] [place], [address] ALK P 83 U/L Normal 45-117 [facility] Comment on above: Performed By: #### L 500.4050, L7000.5800, L100.0100 #### [facility] [address] [place], [address] ALT [Catalytic activity/Vol] 25 U/L Normal 13-56 [facility] Comment on above: Performed By: #### L 500.4050, L7000.5800, L100.0100 #### [facility] [address] [place], [address] AST [Catalytic activity/Vol] 19 U/L Normal 15-37 [facility] Comment on above: Performed By: #### L 500.4050, L7000.5800, L100.0100 #### [facility] [address] [place], [address] Bilirubin [Mass/Vol] 0.50 mg/dL Normal 0.20-1.[address] [facility] Comment on above: Result Comment: For patients on eltrombopag therapy, use of Dimension [place] TBIL is not recommended. Performed By: #### L 500.4050, L7000.5800, L100.0100 #### [facility] [address] [place], [address] BUN/CRE 14.4 RATIO Normal 10-20 [facility] Comment on above: Performed By: #### L 500.4050, L7000.5800, L100.0100 #### [facility] [address] [place], [address] CA,Total 9.6 mg/dL Normal 8.5-10.1 [facility] Comment on above: Performed By: #### L 500.4050, L7000.5800, L100.0100 #### [facility] [address] [place], [address] Chloride [Moles/Vol] 105 mmol/L Normal 98-[address] [facility] Comment on above: Performed By: #### L 500.4050, L7000.5800, L100.0100 #### [facility] [address] [place], [address] CO2 [Moles/Vol] 22.0 mmol/L Normal 21.0-32.0 [facility] Comment on above: Performed By: #### L 500.4050, L7000.5800, L100.0100 #### [facility] [address] [place], [address] Creatinine [Mass/Vol] 0.97 mg/dL Normal 0.55-1.02 [facility] Comment on above: Result Comment: The validity of the calculated GFR GFRAA in patients over 70 years has not been determined. Clinical correlation is essential. Performed By: #### L 500.4050, L7000.5800, L100.0100 #### [facility] [address] [place], [address] EST GFR - AA 81 mL/min Normal >60 [facility] Comment on above: Result Comment: Afri can [place] GFR Calc Performed By: #### L 500.4050, L7000.5800, L100.0100 #### [facility] [address] [place], [address] GAP 9 Normal 5-15 [facility] Comment on above: Performed By: #### L 500.4050, L7000.5800, L100.0100 #### [facility] [address] [place], [address] GFR/1.73 sq M.predicted among non-blacks MDRD (S/P/Bld) [Vol rate/Area] 67 mL/min/{1.73_m2} Normal >60 [facility] Comment on above: Result Comment: Non- GFR Calc Performed By: #### L 500.4050, L7000.5800, L100.0100 #### [facility] [address] [place], [address] Globulin (S) [Mass/Vol] 3.8 g/dL Normal 2.2-4.2 [facility] Comment on above: Performed By: #### L 500.4050, L7000.5800, L100.0100 #### [facility] [address] [place], [address] Glucose [Mass/Vol] 81 mg/dL Normal 74-106 [facility] Comment on above: Performed By: #### L 500.4050, L7000.5800, L100.0100 #### [facility] [address] [place], [address] Potassium [Moles/Vol] 3.6 mmol/L Normal 3.5-5.1 [facility] Comment on above: Performed By: #### L 500.4050, L7000.5800, L100.0100 #### [facility] [address] [place], [address] Sodium [Moles/Vol] 136 mmol/L Normal 136-145 [facility] Comment on above: Performed By: #### L 500.4050, L7000.5800, L100.0100 #### [facility] [address] [place], [address] T PROT 7.9 g/dL Normal 6.4-8.2 [facility] Comment on above: Performed By: #### L 500.4050, L7000.5800, L100.0100 #### [facility] [address] [place], [address] Urea nitrogen [Mass/Vol] 14 mg/dL Normal 7-18 [facility] Comment on above: Performed By: #### L 500.4050, L7000.5800, L100.0100 #### [facility] [address] [place], [address] Eosinophil percentageOrdered By: Uyen Cortes on 11-22-2024 Eosinophils/100 WBC (Bld) 0.8 % Normal 0-5 [facility] Comment on above: Performed By: #### L 500.4050, L7000.5800, L100.0100 #### [facility] [address] [place], [address] Erythrocyte distribution wid th ratioOrdered By: Uyen Cortes on 11-22-2024 Erythrocyte distribution width (RBC) [Ratio] 13.8 % Normal 11.6-14.6 [facility] Comment on above: Performed By: #### L 500.4050, L7000.5800, L100.0100 #### [facility] [address] [place], [address] Erythrocyte distribution wid th standard deviationOrdered By: Uyen Cortes on 11-22-2024 Erythrocyte distribution width (RBC) [Ratio] 43.0 fl 35.1-43.9 [facility] Glomerular filtration rate ( GFR) estimationOrdered By: Uyen Cortes on 11-22-2024 GFR/1.73 sq M.predicted among non-blacks MDRD (S/P/Bld) [Vol rate/Area] 67 mL/min/{1.73_m2} >60 [facility] Comment on above: Non- GFR Calc Glucose measurementOrdered B y: Uyen Cortes on 11-22-2024 Glucose [Mass/Vol] 81 mg/dL 74-106 [facility] Hemoglobin measurementOrdere d By: Uyen Cortes on 11-22-2024 Hemoglobin (Bld) [Mass/Vol] 12.9 g/dL Normal 12.0-15.0 [facility] Comment on above: Performed By: #### L 500.4050, L7000.5800, L100.0100 #### [facility] [address] [place], [address] Immature granulocytes/100 WB C Auto (Bld)Ordered By: Uyen Cortes on 11-22-2024 Immature granulocytes/100 WBC (Bld) 0.500 % 0.0-0.9 [facility] Comment on above: IG% - Immature Granu locytes (promyelocytes, myelocytes and metamyelocytes) > 1% indicates that a LEFT SHIFT is Present. Laboratory - Chemistry and C hemistry - challengeOrdered By: Uyen Cortes on 11-22-2024 AST [Catalytic activity/Vol] 19 U/L 15-37 [facility] MCV (mean corpuscular volume ) determinationOrdered By: Uyen Cortes on 11-22-2024 MCV (RBC) [Entitic vol] 85.2 fL Normal 81-99 [facility] [facility] Comment on above: Performed By: #### L 500.4050, L7000.5800, L100.0100 #### [facility] [address] [place], [address] Mean corpuscular hemoglobin (MCH) determinationOrdered By: Uyen Cortes on 11-22-2024 MCH (RBC) [Entitic mass] 27.3 pg Normal 27.0-32.0 [facility] Comment on above: Performed By: #### L 500.4050, L7000.5800, L100.0100 #### [facility] [address] [place], [address] Mean corpuscular hemoglobin concentration (MCHC) determinationOrdered By: Uyen Cortes on 11-22-2024 MCHC (RBC) [Mass/Vol] 32.0 g/dL Normal 32-36 [facility] Comment on above: Performed By: #### L 500.4050, L7000.5800, L100.0100 #### [facility] [address] [place], [address] Mean platelet volume determi nationOrdered By: Uyen Cortes on 11-22-2024 Platelet mean volume (Bld) [Entitic vol] 11.3 fL Normal 6.2-12.0 [facility] Comment on above: Performed By: #### L 500.4050, L7000.5800, L100.0100 #### [facility] [address] [place], [address] Monocyte percentageOrdered B y: Uyen Cortes on 11-22-2024 Monocytes/100 WBC (Bld) 5.8 % Normal 0-10 [facility] Comment on above: Performed By: #### L 500.4050, L7000.5800, L100.0100 #### [facility] [address] [place], [address] Neutrophil percentageOrdered By: Uyen Cortes on 11-22-2024 Neutrophils/100 WBC (Bld) 61.9 % Normal 47-70 [facility] Comment on above: Performed By: #### L 500.4050, L7000.5800, L100.0100 #### [facility] [address] [place], [address] No Panel InformationOrdered By: Uyen Cortes on 11-22-2024 Lyme Disease IgG Ab 30 kDa Band Absent . [facility] Lyme Disease IgG Ab 93 kDa Band Absent . [facility] Lyme Disease IgG West Blot Interp Negative . [facility] Comment on above: Positive: 5 of the f ollowing Borrelia-specific bands: 18,23,28,30,39,41,45,58, 66, and 93. Negative: No bands or banding patterns which do not meet positive criteria. Lyme Disease IgM Ab (Western Blot) Negative . [facility] Comment on above: Note: An equivocal o r positive EIA result followed by anegative Line Blot result is considered NEGATIVE. Anequivocal or positive EIA result followed by a positiveLine Blot is considered POSITIVE by the CDC.Positive: 2 of the following bands: 23,39 or 41Negative: No bands or banding patterns which do not meetpositive criteria.Criteria for positivity are those recommended byCDC/ASTPHLD. p23=Osp C, f12=voqlxaymzNssm:Sera from individuals with the following may cross reactin the Lyme Line Blot assays: other spirochetal diseases(periodontal disease, leptospirosis, relapsing fever, yaws,and pinta); connective autoimmune (Rheumatoid Arthritis andSystemic Lupus Erythematosus and also individuals withAntinuclear Antibody); other infections (Chester MountainSpotted Fever; Nita-Moore Virus, and Cytomegalovirus).Please Note: Lyme immunoblot alone is not recommended forthe diagnosis of Lyme disease. Current guidelines recommendthe use of a two-tiered approach to Lyme serology testingto improve the sensitivity and specificity of testing.[facility] offers test code 720882 Lyme Disease Serology withReflex to aid in the diagnosis of Lyme Disease.Performed at: [address] [id number] Director: Mel Jarrett MD, Phone: [phone] Nucleated red blood cell per centageOrdered By: Uyen Cortes on 11-22-2024 Nucleated RBC/100 WBC (Bld) [Ratio] 0 % 0-5 [facility] Platelet countOrdered By: Reji Cortes on 11-22-2024 Platelets (Bld) [#/Vol] 230 10*3/uL Normal 150-450 [facility] Comment on above: Performed By: #### L 500.4050, L7000.5800, L100.0100 #### [facility] [address] [place], [address] Potassium measurementOrdered By: Uyen Cortes on 11-22-2024 Potassium [Moles/Vol] 3.6 mmol/L 3.5-5.1 [facility] Serum anion gap measurementO rdered By: Uyen Cortes on 11-22-2024 Anion gap [Moles/Vol] 9 mmol/L 5-15 [facility] Serum globulin measurementOr dered By: Uyen Cortes on 11-22-2024 Globulin (S) [Mass/Vol] 3.8 g/dL 2.2-4.2 [facility] Serum or plasma alanine nichols otransferase (ALT) measurementOrdered By: Uyen Cortes on 11-22-2024 ALT [Catalytic activity/Vol] 25 U/L 13-56 [facility] Serum or plasma albumin gabrielle urement (mass/volume)Ordered By: Uyen Cortes on 11-22-2024 Albumin [Mass/Vol] 4.1 g/dL 3.2-5.0 [facility] Serum or plasma alkaline le sphatase measurementOrdered By: Uyen Cortes on 11-22-2024 ALP [Catalytic activity/Vol] 83 U/L 45-117 [facility] Serum or plasma calcium gabrielle urement (mass/volume)Ordered By: Uyen Cortes on 11-22-2024 Calcium [Mass/Vol] 9.6 mg/dL 8.5-10.1 [facility] Serum or plasma creatinine m easurement (mass/volume)Ordered By: Uyen Cortes on 11-22-2024 Creatinine [Mass/Vol] 0.97 mg/dL 0.55-1.02 [facility] Comment on above: The validity of the calculated GFR & GFRAA in patients over 70 years has not been determined. Clinical correlation is essential. Serum or plasma urea nitroge n measurement (mass/volume)Ordered By: Uyen Cortes on 11-22-2024 Urea nitrogen [Mass/Vol] 14 mg/dL 7-18 [facility] Sodium levelOrdered By: Jayjay Cortes on 11-22-2024 Sodium [Moles/Vol] 136 mmol/L 136-145 [facility] Total proteinOrdered By: Soham Cortes on 11-22-2024 Protein [Mass/Vol] 7.9 g/dL 6.4-8.2 [facility] White blood cell (WBC) count Ordered By: Uyen Cortes on 11-22-2024 WBC (Bld) [#/Vol] 7.4 10*3/uL Normal 4.4-11.0 [facility] Comment on above: Performed By: #### L 500.4050, L7000.5800, L100.0100 #### [facility] [address] [place], [address] CBC W/Diff, Automatedon 11-0 Absolute Lymph 2.15 X10 3/uL Normal 0.83-4.51 [facility] Comment on above: Performed By: #### L 501.0900, L400.2010, L500.4050, L100.0100, L3890.6100, L3890.6300, L3890.6200 #### [facility] [address] [place], [address] Absolute Neut 3.6 X10 3/uL Normal 2.0-7.7 [facility] Comment on above: Performed By: #### L 501.0900, L400.2010, L500.4050, L100.0100, L3890.6100, L3890.6300, L3890.6200 #### [facility] [address] [place], [address] Basophils/100 WBC (Bld) 0.3 % Normal 0-1 [facility] Comment on above: Performed By: #### L 501.09, L4, L500.4050, L100.0100, L3890.6100, L3890.6300, L3890.6200 #### [facility] [address] [place], [address] Eosinophils/100 WBC (Bld) 0.8 % Normal 0-5 [facility] Comment on above: Performed By: #### L 501.09, L4, L500.4050, L100.0100, L3890.6100, L3890.6300, L3890.6200 #### [facility] [address] [place], [address] Erythrocyte distribution width (RBC) [Ratio] 13.6 % Normal 11.6-14.6 [facility] Comment on above: Performed By: #### L 501.0900, L400, L500.4050, L100.0100, L3890.6100, L3890.6300, L3890.6200 #### [facility] [address] [place], [address] Hematocrit (Bld) [Volume fraction] 39.4 % Normal 37-47 [facility] Comment on above: Performed By: #### L 501.0900, L4.2010, L500.4050, L100.0100, L3890.6100, L3890.6300, L3890.6200 #### [facility] [address] [place], [address] Hemoglobin (Bld) [Mass/Vol] 12.8 g/dL Normal 12.0-15.0 [facility] Comment on above: Performed By: #### L 501.09, L4.2010, L500.4050, L100.0100, L3890.6100, L3890.6300, L3890.6200 #### [facility] [address] [place], [address] IG% 0.300 Normal 0.0-0.9 [facility] Comment on above: Result Comment: IG% - Immature Granulocytes (promyelocytes, myelocytes and metamyelocytes) > 1% indicates that a LEFT SHIFT is Present. Performed By: #### L 501.09, L4.2010, L500.4050, L100.0100, L3890.6100, L3890.6300, L3890.6200 #### [facility] [address] [place], [address] Lymphocytes/100 WBC (Bld) 34.7 % Normal 19-41 [facility] Comment on above: Performed By: #### L 501.0900, L400.2010, L500.4050, L100.0100, L3890.6100, L3890.6300, L3890.6200 #### [facility] [address] [place], [address] MCH (RBC) [Entitic mass] 27.5 pg Normal 27.0-32.0 [facility] Comment on above: Performed By: #### L 501.0900, L400.2010, L500.4050, L100.0100, L3890.6100, L3890.6300, L3890.6200 #### [facility] [address] [place], [address] MCHC (RBC) [Mass/Vol] 32.5 g/dL Normal 32-36 [facility] Comment on above: Performed By: #### L 501.0900, L400.2010, L500.4050, L100.0100, L3890.6100, L3890.6300, L3890.6200 #### [facility] [address] [place], [address] MCV (RBC) [Entitic vol] 84.7 fL Normal 81-99 [facility] Comment on above: Performed By: #### L 501.09, L4, L500.4050, L100.0100, L3890.6100, L3890.6300, L3890.6200 #### [facility] [address] [place], [address] Monocytes/100 WBC (Bld) 5.5 % Normal 0-10 [facility] Comment on above: Performed By: #### L 501.09, L4, L500.4050, L100.0100, L3890.6100, L3890.6300, L3890.6200 #### [facility] [address] [place], [address] Neutrophils/100 WBC (Bld) 58.4 % Normal 47-70 [facility] Comment on above: Performed By: #### L 501.0900, L4.2010, L500.4050, L100.0100, L3890.6100, L3890.6300, L3890.6200 #### [facility] [address] [place], [address] Nucleated RBC (Bld) [#/Vol] 0 10*3/uL Normal 0-5 [facility] Comment on above: Performed By: #### L 501.0900, L400.2010, L500.4050, L100.0100, L3890.6100, L3890.6300, L3890.6200 #### [facility] [address] [place], [address] Platelet mean volume (Bld) [Entitic vol] 11.3 fL Normal 6.2-12.0 [facility] Comment on above: Performed By: #### L 501.09, L4.2010, L500.4050, L100.0100, L3890.6100, L3890.6300, L3890.6200 #### [facility] [address] [place], [address] Platelets (Bld) [#/Vol] 248 10*3/uL Normal 150-450 [facility] Comment on above: Performed By: #### L 501.09, L4.2010, L500.4050, L100.0100, L3890.6100, L3890.6300, L3890.6200 #### [facility] [address] [place], [address] RBC (Bld) [#/Vol] 4.65 10*6/uL Normal 4.2-5.4 [facility] Comment on above: Performed By: #### L 501.0900, L400.2010, L500.4050, L100.0100, L3890.6100, L3890.6300, L3890.6200 #### [facility] [address] [place], [address] RDW SD 42.3 fl Normal 35.1-43.9 [facility] Comment on above: Performed By: #### L 501.09, L4, L500.4050, L100.0100, L3890.6100, L3890.6300, L3890.6200 #### [facility] [address] [place], [address] WBC (Bld) [#/Vol] 6.2 10*3/uL Normal 4.4-11.0 [facility] Comment on above: Performed By: #### L 501.09, L4, L500.4050, L100.0100, L3890.6100, L3890.6300, L3890.6200 #### [facility] [address] [place], [address] Comprehensive Metabolic Prof ilon 08-23-2024 Albumin [Mass/Vol] 3.5 g/dL Normal 3.2-5.0 [facility] Comment on above: Performed By: #### L 501.09, L4, L500.4050, L100.0100, L3890.6100, L3890.6300, L3890.6200 #### [facility] [address] [place], [address] Albumin/Globulin [Mass ratio] 1.0 {ratio} Normal 0.9-2.4 [facility] Comment on above: Performed By: #### L 501.09, L4, L500.4050, L100.0100, L3890.6100, L3890.6300, L3890.6200 #### [facility] [address] [place], [address] ALK P 88 U/L Normal 45-117 [facility] Comment on above: Performed By: #### L 501.09, L4, L500.4050, L100.0100, L3890.6100, L3890.6300, L3890.6200 #### [facility] [address] [place], [address] ALT [Catalytic activity/Vol] 23 U/L Normal 13-56 [facility] Comment on above: Performed By: #### L 501.0900, L400.2010, L500.4050, L100.0100, L3890.6100, L3890.6300, L3890.6200 #### [facility] [address] [place], [address] AST [Catalytic activity/Vol] 15 U/L Normal 15-37 [facility] Comment on above: Performed By: #### L 501.09, L4, L500.4050, L100.0100, L3890.6100, L3890.6300, L3890.6200 #### [facility] [address] [place], [address] Bilirubin [Mass/Vol] 0.30 mg/dL Normal 0.20-1.[address] [facility] Comment on above: Result Comment: For patients on eltrombopag therapy, use of Dimension [place] TBIL is not recommended. Performed By: #### L 501.09, L4, L500.4050, L100.0100, L3890.6100, L3890.6300, L3890.6200 #### [facility] [address] [place], [address] BUN/CRE 13.5 RATIO Normal 10-20 [facility] Comment on above: Performed By: #### L 501.0900, L4, L500.4050, L100.0100, L3890.6100, L3890.6300, L3890.6200 #### [facility] [address] [place], [address] CA,Total 8.9 mg/dL Normal 8.5-10.1 [facility] Comment on above: Performed By: #### L 501.0900, L4, L500.4050, L100.0100, L3890.6100, L3890.6300, L3890.6200 #### [facility] [address] [place], [address] Chloride [Moles/Vol] 108 mmol/L High 98-[address] [facility] Comment on above: Performed By: #### L 501.0900, L400.2010, L500.4050, L100.0100, L3890.6100, L3890.6300, L3890.6200 #### [facility] [address] [place], [address] CO2 [Moles/Vol] 24.0 mmol/L Normal 21.0-32.0 [facility] Comment on above: Performed By: #### L 501.09, L4, L500.4050, L100.0100, L3890.6100, L3890.6300, L3890.6200 #### [facility] [address] [place], [address] Creatinine [Mass/Vol] 1.04 mg/dL High 0.55-1.02 [facility] Comment on above: Result Comment: The validity of the calculated GFR GFRAA in patients over 70 years has not been determined. Clinical correlation is essential. Performed By: #### L 501.0900, L4.2010, L500.4050, L100.0100, L3890.6100, L3890.6300, L3890.6200 #### [facility] [address] [place], [address] EST GFR - AA 75 mL/min Normal >60 [facility] Comment on above: Result Comment: Afri can [place] GFR Calc Performed By: #### L 501.0900, L400.2010, L500.4050, L100.0100, L3890.6100, L3890.6300, L3890.6200 #### [facility] [address] [place], [address] GAP 7 Normal 5-15 [facility] Comment on above: Performed By: #### L 501.09, L400.2010, L500.4050, L100.0100, L3890.6100, L3890.6300, L3890.6200 #### [facility] [address] [place], [address] GFR/1.73 sq M.predicted among non-blacks MDRD (S/P/Bld) [Vol rate/Area] 62 mL/min/{1.73_m2} Normal >60 [facility] Comment on above: Result Comment: Non- GFR Calc Performed By: #### L 501.09, L4.2010, L500.4050, L100.0100, L3890.6100, L3890.6300, L3890.6200 #### [facility] [address] [place], [address] Globulin (S) [Mass/Vol] 3.5 g/dL Normal 2.2-4.2 [facility] Comment on above: Performed By: #### L 501.09, L4.2010, L500.4050, L100.0100, L3890.6100, L3890.6300, L3890.6200 #### [facility] [address] [place], [address] Glucose [Mass/Vol] 83 mg/dL Normal 74-106 [facility] Comment on above: Performed By: #### L 501.0900, L400.2010, L500.4050, L100.0100, L3890.6100, L3890.6300, L3890.6200 #### [facility] [address] [place], [address] Potassium [Moles/Vol] 3.6 mmol/L Normal 3.5-5.1 [facility] Comment on above: Performed By: #### L 501.0900, L400.2010, L500.4050, L100.0100, L3890.6100, L3890.6300, L3890.6200 #### [facility] [address] [place], [address] Sodium [Moles/Vol] 139 mmol/L Normal 136-145 [facility] Comment on above: Performed By: #### L 501.0900, L400.2010, L500.4050, L100.0100, L3890.6100, L3890.6300, L3890.6200 #### [facility] [address] [place], [address] T PROT 7.0 g/dL Normal 6.4-8.2 [facility] Comment on above: Performed By: #### L 501.0900, L400.2010, L500.4050, L100.0100, L3890.6100, L3890.6300, L3890.6200 #### [facility] [address] [place], [address] Urea nitrogen [Mass/Vol] 14 mg/dL Normal 7-18 [facility] Comment on above: Performed By: #### L 501.0900, L400.2010, L500.4050, L100.0100, L3890.6100, L3890.6300, L3890.6200 #### [facility] [address] [place], [address] EXAGENon 08-23-2024 EXAGEN MAILED SPECIMEN Normal [facility] Comment on above: Performed By: #### L 801.1549 #### [facility] [address] [place], [address] Hepatitis B Surface Antibody on 08-23-2024 HEP B Surf Ab Reactive Normal [facility] Comment on above: Result Comment: Non Reactive: Inconsistent with immunity less than <10 mIU/mL Reactive: Consistent with immunity greater than or equal to 10 mIU/mL Performed By: #### L 501.0900, L400.2010, L500.4050, L100.0100, L3890.6100, L3890.6300, L3890.6200 #### [facility] [address] [place], [address] Hepatitis B Surface Antigeno n 08-23-2024 HEP B Surf Ag Non-Reactive Normal Nonreactive [facility] Comment on above: Performed By: #### L 501.0900, L400.2010, L500.4050, L100.0100, L3890.6100, L3890.6300, L3890.6200 #### [facility] [address] [facility] [place], [address] Hepatitis C Antibodyon 08-23 Hepatitis C AB Non-Reactive Normal Nonreactive [facility] Comment on above: Result Comment: Non Reactive: < 0.8 Equivocal: >/= 0.8 to < 1.0 Reactive: >/= 1.0 The CDC requires that a reactive/equivocal HCV antibody result be sent out for confirmation. HCV Quant by PCR testing. Performed By: #### L 500.4050, L7000.5800, L100.0100 #### [facility] [address] [place], [address] Protein+Creatinine Ratio,Uri neon 08-23-2024 PROT:CRE RATIO 109 mg/g CRE Normal 0-200 [facility] Comment on above: Performed By: #### L 501.0900, L400.2010, L500.4050, L100.0100, L3890.6100, L3890.6300, L3890.6200 #### [facility] [address] [place], [address] Protein (U) [Mass/Vol] 7.4 mg/dL Normal <11.9 [facility] Comment on above: Performed By: #### L 501.0900, L400.2010, L500.4050, L100.0100, L3890.6100, L3890.6300, L3890.6200 #### [facility] [address] [place], [address] UR CREAT 68.20 mg/dL Normal NO RANGE EST. [facility] Comment on above: Performed By: #### L 501.0900, L4.2010, L500.4050, L100.0100, L3890.6100, L3890.6300, L3890.6200 #### [facility] [address] [place], [address] Urinalysis, Routine (Dipstic k)on 08-23-2024 BILIRUBIN URINE Negative Normal Negative [facility] Comment on above: Order Comment: Urine , Random Performed By: #### L 501.09, L4.2010, L500.4050, L100.0100, L3890.6100, L3890.6300, L3890.6200 #### [facility] [address] [place], [address] Clarity (U) Clear Normal Clear [facility] Comment on above: Order Comment: Urine , Random Performed By: #### L 501.09, L4.2010, L500.4050, L100.0100, L3890.6100, L3890.6300, L3890.6200 #### [facility] [address] [place], [address] Color (U) Yellow Normal Yellow [facility] Comment on above: Order Comment: Urine , Random Performed By: #### L 501.09, L4.2010, L500.4050, L100.0100, L3890.6100, L3890.6300, L3890.6200 #### [facility] [address] [place], [address] GLUCOSE, UR Normal Normal Normal [facility] Comment on above: Order Comment: Urine , Random Performed By: #### L 501.0900, L400.2010, L500.4050, L100.0100, L3890.6100, L3890.6300, L3890.6200 #### [facility] [address] [place], [address] KETONE UR Negative Normal Negative [facility] Comment on above: Order Comment: Urine , Random Performed By: #### L 501.0900, L400.2010, L500.4050, L100.0100, L3890.6100, L3890.6300, L3890.6200 #### [facility] [address] [place], [address] LEUK ESTERASE 100 /ul Abnormal Negative [facility] Comment on above: Order Comment: Urine , Random Performed By: #### L 501.09, L4.2010, L500.4050, L100.0100, L3890.6100, L3890.6300, L3890.6200 #### [facility] [address] [place], [address] Nitrite Ql (U) Negative Normal Negative [facility] Comment on above: Order Comment: Urine , Random Performed By: #### L 501.0900, L400.2010, L500.4050, L100.0100, L3890.6100, L3890.6300, L3890.6200 #### [facility] [address] [place], [address] OCCULT BLOOD-UR Negative Normal Negative [facility] Comment on above: Order Comment: Urine , Random Performed By: #### L 501.0900, L400.2010, L500.4050, L100.0100, L3890.6100, L3890.6300, L3890.6200 #### [facility] [address] [place], [address] pH UR 6.0 Normal 5.0 - 8.0 [facility] Comment on above: Order Comment: Urine , Random Performed By: #### L 501.0900, L400.2010, L500.4050, L100.0100, L3890.6100, L3890.6300, L3890.6200 #### [facility] [address] [place], [address] PROT DIPSTX Negative Normal Negative [facility] Comment on above: Order Comment: Urine , Random Performed By: #### L 501.0900, L400.2010, L500.4050, L100.0100, L3890.6100, L3890.6300, L3890.6200 #### [facility] [address] [place], [address] SP.GR. DIPSTX 1.015 Normal 1.002-1.030 [facility] Comment on above: Order Comment: Urine , Random Performed By: #### L 501.0900, L400.2010, L500.4050, L100.0100, L3890.6100, L3890.6300, L3890.6200 #### [facility] [address] [place], [address] UROBILI Normal Normal Normal [facility] Comment on above: Order Comment: Urine , Random Performed By: #### L 501.09, L400.2010, L500.4050, L100.0100, L3890.6100, L3890.6300, L3890.6200 #### [facility] [address] [place], [address] [id number] 07-15-2024 [id number] Right-Faxed labs, office notes, insurance card, demographics to Dr. Cortes at [phone] [facility] [id number] 07-14-2024 [id number] Spoke with pt advisi ng message Pt understands Nothing further needed Normal [facility] Office Visiton 07-12-2024 Follow-up visit [id number] Prashanth Jimenez 1980 F Date Provider Department Center 07/12/2024 [id number] RIOJAS [facility] Family History Problem Relation Age of Onset Breast cancer Mother 55 Comments: Had genetic testing - non genetic cancer Other Father Comments: stomach issues Kidney disease Father No Known Problems Brother Heart disease Maternal Grandmother Comments: has had open heart surgery Colon cancer Maternal Grandfather Heart disease Maternal Grandfather Comments: has had heart cath Dementia Maternal Grandfather Heart attack Paternal Grandmother Comments: hx of No Known Problems Paternal Grandfather Breast cancer Father's Sister Family Status - Relation Status Age at Mother Alive Father Alive Brother Alive Maternal Grandmother Alive Maternal Grandfather Alive Paternal Grandmother Alive Paternal Grandfather Other Father's Sister Alive Level of Service:20277 ND OFFICE/OUTPATIENT ESTABLISHED LOW [facility] 20 MIN Reason for Visit and Comments: Hand Pain [[id number]] - Patient here today to discuss joint discomfort and have her lower right leg checked. Normal [facility] PATINSon 07-12-2024 PATINS Tumeric. Or glucosamine or fish oil Normal [facility] Progress Noteon 07-12-2024 Progress Note Subjective Patient ID: Lili Jimenez is a 44 y.o. female who presents for Hand Pain (Patient here today to discuss joint discomfort and have her lower right leg checked.). 1. Hands and fingers, elbows and shoulders. Both sides ache. FH of rheumatoid. Maternal side. Not taking anything. No swelling, no erythema in the joints. 2. Right lower leg got caught on the dog's lead in the yards. Friday, so 3 days ago. No fever or chills. Skin pulls with walking Review of Systems Constitutional: Negative for activity change, chills and fever. Musculoskeletal: Positive for arthralgias. Negative for back pain and gait problem. Skin: Positive for wound. Objective Physical Exam Vitals and nursing note reviewed. Constitutional: General: She is not in acute distress. Appearance: She is not ill-appearing or toxic-appearing. Musculoskeletal: General: No swelling or deformity. Comments: The MP joints of the fingers are tender. No synovitis. NO erythema, no deformity. Right and left shoulder have some crepitance with PROM. Skin: Comments: The right lower leg has a red abrasion. The 2 deeper parts are moist and have some drainage. Is UTD on tetanus Neurological: Mental Status: She is alert. Assessment/Plan Problem List Items Addressed This Visit None Visit Diagnoses Arthralgia of both hands - Primary Acute, uncontrolled Seems like osteoarthritis Check the labs. Has a FH of RA. Relevant Orders C-reactive protein MAYITO Rheumatoid factor Sedimentation rate, automated Abrasion of right lower extremity, initial encounter Acute, uncontrolled Rope burn from a dog lead Tdap is UTD Looks good Keep clean and dry. Normal [facility] 36on 07-09-2024 36 S: [facility] with complaint of fingers and hands aching - arthritis. B: Ongoing few days. A: Patient c/o was told she had arthritis in her shoulders asking if this could be causing the pain in her fingers and hands. Pain to all fingers and both hands 5/10. The pain comes and goes. Has been doing a lot of erica recently . Denies redness numbness fever or swelling R: Appointment scheduled 07/12/24. Insurance verified. Instructed to bring medications to OV. Covid screen negative. Home Care advice given. Patient instructed to call back with worsening symptoms, concerns or questions. Patient verbalized understanding. Message to the office for review by the provider and needs recommendation from Provider for treatment going forward. Reason for Disposition Patient wants to be seen Protocols used: Hand and Wrist [id number] Normal [facility] [id number] 07-08-2024 [id number] noted Normal [facility] DBT Breast - bilateral scree nirajn 07-07-2024 No mammographic evidence of malignancy. ASSESSMENT: Category 1 Negative RECOMMENDATION: Routine screening mammogram in 1 year. Bilateral Recommend consultation with high risk clinic. CANCER RISK ASSESSMENT: This risk assessment is based on patient provided information collected in a risk survey taken at the time of this examination. LIFETIME BREAST CANCER RISK: Coral 8: 42.3% - If greater than or equal to 20%, consider annual mammogram and annual screening Breast MRI or follow up in high risk clinic. Is the patient at elevated risk based on the HBOC criteria? No (Hereditary Breast and Ovarian Cancer) - If Yes, consider genetic counseling and testing with high risk follow up Is the patient at elevated risk based on the Huertas Syndrome criteria? No - If Yes, consider genetic counseling and testing with high risk follow up. Report Dictated on Electronically Signed By: Luan Bolton MD Electronically Signed Date/Time: 07/07/2024 2:36 PM EDT [facility] Patient Name: LILI HERNANDEZ : 1980 Exam Date/Time: 07/07/2024 14:15 Procedure: BI MAMMOGRAM SCREENING TOMOSYNTHESIS BILATERAL Ordering Provider: RIOJAS GLENNA Reason For Exam: This exam was performed at: [facility] at [place] [id number] [facility] [address] RISK ALERT: The Cancer Risk Assessment scores below the recommendation of this report contain an outcome above the normal risk range. PATIENT CANCER HISTORY: No Personal History of Cancer FAMILY CANCER HISTORY: Mother Breast Cancer age 55 Maternal Grandfather Colon Cancer Paternal Aunt Breast Cancer Image views: 2D Bilateral CC and MLO views were acquired. 3D Bilateral CC and MLO views were acquired. Images were reviewed with CAD. Markings on images: BB's = Nipples; skin lesions Open [place] = Palpable Line = Scar COMPARISON: 05/04/2021, 05/22/2022, 05/30/2023 TISSUE DENSITY: BIRADS D - The breasts are extremely dense, which lowers the sensitivity of mammography. FINDINGS: No suspicious masses, architectural distortions or suspiciously clustered microcalcifications are identified. There is no evidence of skin thickening or nipple retraction. There are no significant changes when compared with prior studies. [facility] Luan Bolton MD - 07/07/2024 Patient Name: LILI JIMENEZ : 1980 Exam Date/Time: 07/07/2024 14:15 Procedure: BI MAMMOGRAM SCREENING TOMOSYNTHESIS BILATERAL Ordering Provider: RIOJAS GLENNA Reason For Exam: This exam was performed at: [facility] at [place] [id number] [place] [address] RISK ALERT: The Cancer Risk Assessment scores below the recommendation of this report contain an outcome above the normal risk range. PATIENT CANCER HISTORY: No Personal History of Cancer FAMILY CANCER HISTORY: Mother Breast Cancer age 55 Maternal Grandfather Colon Cancer Paternal Aunt Breast Cancer Image views: 2D Bilateral CC and MLO views were acquired. 3D Bilateral CC and MLO views were acquired. Images were reviewed with CAD. Markings on images: BB's = Nipples; skin lesions Open [place] = Palpable Line = Scar COMPARISON: 05/04/2021, 05/22/2022, 05/30/2023 TISSUE DENSITY: BIRADS D - The breasts are extremely dense, which lowers the sensitivity of mammography. FINDINGS: No suspicious masses, architectural distortions or suspiciously clustered microcalcifications are identified. There is no evidence of skin thickening or nipple retraction. There are no significant changes when compared with prior studies. IMPRESSION: No mammographic evidence of malignancy. ASSESSMENT: Category 1 Negative RECOMMENDATION: Routine screening mammogram in 1 year. Bilateral Recommend consultation with high risk clinic. CANCER RISK ASSESSMENT: This risk assessment is based on patient provided information collected in a risk survey taken at the time of this examination. LIFETIME BREAST CANCER RISK: Coral 8: 42.3% - If greater than or equal to 20%, consider annual mammogram and annual screening Breast MRI or follow up in high risk clinic. Is the patient at elevated risk based on the HBOC criteria? No (Hereditary Breast and Ovarian Cancer) - If Yes, consider genetic counseling and testing with high risk follow up Is the patient at elevated risk based on the Huertas Syndrome criteria? No - If Yes, consider genetic counseling and testing with high risk follow up. Report Dictated on Electronically Signed By: Luan Bolton MD Electronically Signed Date/Time: 07/07/2024 2:36 PM EDT [facility] Radiology Study observation (narrative) [facility] nadja DBT Breast - bilateral scree ningOrdered By: Luan Bolton on 07-07-2024 [employer] Work Phone: Throat specimen bacteria heather ntification by cultureOrdered By: Filemon Garcia on 08-11-2023 Bacteria identified Cx Nom (Throat) streptococcus isolated. [facility] DBT Breast - bilateral scree ningon 05-30-2023 No mammographic evidence of malignancy. ASSESSMENT: Category 1 Negative RECOMMENDATION: Routine screening mammogram in 1 year. Bilateral CANCER RISK ASSESSMENT: This risk assessment is based on patient provided information collected in a risk survey taken at the time of this examination. LIFETIME BREAST CANCER RISK: [place]: 30 % - If greater than or equal to 20%, consider annual mammogram and annual screening Breast MRI or follow up in high risk clinic. Is the patient at elevated risk based on the HBOC criteria? NCCN HBOC Guidelines: 0 % (Hereditary Breast and Ovarian Cancer) - If 100%, consider genetic counseling and testing with high risk follow up. Is the patient at elevated risk based on the Huertas Syndrome criteria? NCCN Huertas: 0 % - If 100%, consider genetic counseling and testing with high risk follow up. Report Dictated on Electronically Signed By: Luan Bolton MD Electronically Signed Date/Time: 05/30/2023 12:50 PM EDT [facility] [employer] Patient Name: LILI HERNANDEZ : 1980 Exam Date/Time: 05/30/2023 12:10 Procedure: BI MAMMOGRAM SCREENING TOMOSYNTHESIS BILATERAL Ordering Provider: RIOJAS GLENNA Reason For Exam: Breast cancer screening, average or low risk (Female >= 18y) Image views: 2D Bilateral CC and MLO views were acquired. 3D Bilateral CC and MLO views were acquired. Images were reviewed with CAD. Markings on images: BB's = Nipples; skin lesions Open [place] = Palpable Line = Scar COMPARISON: 05/04/2021, 05/22/2022 TISSUE DENSITY: BIRADS D - The breast tissue is extremely dense, which may lower the sensitivity of mammography. FINDINGS: No suspicious masses, architectural distortions or suspiciously clustered microcalcifications are identified. There is no evidence of skin thickening or nipple retraction. There are no significant changes when compared with prior studies. [facility] Luan Bolton MD - 05/30/2023 Patient Name: LILI JIMENEZ : 1980 Exam Date/Time: 05/30/2023 12:10 Procedure: BI MAMMOGRAM SCREENING TOMOSYNTHESIS BILATERAL Ordering Provider: RIOJAS GLENNA Reason For Exam: Breast cancer screening, average or low risk (Female >= 18y) Image views: 2D Bilateral CC and MLO views were acquired. 3D Bilateral CC and MLO views were acquired. Images were reviewed with CAD. Markings on images: BB's = Nipples; skin lesions Open sh[place] = Palpable Line = Scar COMPARISON: 05/04/2021, 05/22/2022 TISSUE DENSITY: BIRADS D - The breast tissue is extremely dense, which may lower the sensitivity of mammography. FINDINGS: No suspicious masses, architectural distortions or suspiciously clustered microcalcifications are identified. There is no evidence of skin thickening or nipple retraction. There are no significant changes when compared with prior studies. IMPRESSION: No mammographic evidence of malignancy. ASSESSMENT: Category 1 Negative RECOMMENDATION: Routine screening mammogram in 1 year. Bilateral CANCER RISK ASSESSMENT: This risk assessment is based on patient provided information collected in a risk survey taken at the time of this examination. LIFETIME BREAST CANCER RISK: [place]: 30 % - If greater than or equal to 20%, consider annual mammogram and annual screening Breast MRI or follow up in high risk clinic. Is the patient at elevated risk based on the HBOC criteria? NCCN HBOC Guidelines: 0 % (Hereditary Breast and Ovarian Cancer) - If 100%, consider genetic counseling and testing with high risk follow up. Is the patient at elevated risk based on the Huertas Syndrome criteria? NCCN Huertas: 0 % - If 100%, consider genetic counseling and testing with high risk follow up. Report Dictated on Electronically Signed By: Luan Bolton MD Electronically Signed Date/Time: 05/30/2023 12:50 PM EDT [facility] [employer] [facility] Study observation (narrative) [facility] nadja DBT Breast - bilateral scree ningOrdered By: Luan Bolton on 05-30-2023 [employer] Work Phone: MG Breast Tomosynthesis Scr Blon 05-22-2022 MG Breast Tomosynthesis Scr Bl Patient Name: LILI JIMENEZ Mammography ACCESSION EXAM DATE/TIME PROCEDURE ORDERING PROVIDER [id number] 05/22/2022 16:15 EDT MG Breast Tomosynthesis MD SHINE, CAITLIN Lopez BI Scr CPT code [id number] Reason For Exam (MG Breast Tomosynthesis BI Scr) screening Report TIME SINCE LAST MAMMOGRAM: Last mammogram was performed 1 year and 1 month ago. REASON FOR EXAM: screening, asymptomatic. PROCEDURE: MG BREAST TOMOSYNTHESIS BL SCR: MAY 22, 2022 - 2D/3D Procedure 3D Bilateral CC and MLO view(s) were taken. 2D Bilateral CC and MLO view(s) were taken. Prior study comparison: May 04, 2021, bilateral MG breast tomosynthesis bl scr performed at [facility]. May 05, 2018, bilateral MG breast tomosynthesis bl scr performed at [facility]. April 14, 2017, bilateral mammogram performed at [facility]. TISSUE DENSITY: BIRADS D - The breast tissue is extremely dense, which may lower the sensitivity of mammography. . RISK ALERT: The Cancer Risk Assessment scores below the recommendation of this report contain an outcome above the normal risk range. PATIENT CANCER HISTORY: No Personal History of Cancer FAMILY CANCER HISTORY: Mother Breast Cancer age 55 Maternal Grandfather Stomach Cancer age 70 Paternal Aunt Breast Cancer age 35 FINDINGS: No suspicious masses, architectural distortions or suspiciously clustered microcalcifications are identified. There is no evidence of skin thickening or nipple retraction. There are no significant changes when compared with prior studies. No mammographic evidence of malignancy. Markings on images: BB's = Nipples; skin lesions Mammography Report Open sh[place] = Palpable Line = Scar 2D digital mammography and tomosynthesis imaging were performed and reviewed with CAD. ASSESSMENT: Category 1 Negative RECOMMENDATION: Routine screening mammogram of both breasts in 1 year. . Report Dictated on Cancer Risk Assessment: This risk assessment is based on patient provided information collected in a risk survey taken at the time of this examination. Lifetime breast cancer risk: Tyrer-Cuzick v8 31.06% - If greater than or equal to 20%, consider annual mammogram and annual screening Breast MRI or follow up in high risk clinic. A score of Average Risk indicates a score of less than 20%. Is the patient at elevated risk based on the HBOC criteria? Yes (Hereditary Breast and Ovarian Cancer) - If yes, consider genetic counseling and testing with high risk follow up. Is the patient at elevated risk based on the Huertas Syndrome criteria? No - If yes, consider genetic counseling and testing with high risk follow up. Final Signed Date and Time: 05/23/2022 8:10 am Signed by: MD VERENICE, LUAN Buchanan Normal [facility] SHOULDER 3V OR MORE AP/TRUE AP/OTHER RIGHTon 10-31-2018 Thyrotropin Qn Performed at [facility] APPROVED BY: Tejas Ellis MD EXAM TITLE: 3 VIEWS OF THE RIGHT SHOULDER DATE:10/31/2018 16:05 COMPARISON: None. CLINICAL INDICATION/HISTORY: Trauma, pain TECHNIQUE: AP, oblique, scapular Y view right shoulderFINDINGS: Negative for fracture or dislocation.Glenohumer al joint space is preserved.AC joint is unremarkable. IMPRESSION: Negative exam right shoulder Normal [facility] CLOST.DIFF.TOXIN,PCRon 07-13 CLOST.DIFF.TOXIN,PCR Canceled Normal [facility] Comment on above: Order Comment: TEST CLOST.DIFF.TOXIN,PCR WAS CANCELLED, 07/12/2017 23:28 FORMED STOOLRECEIVED, UNABLE TO PERFORM TESTING 07/12/2017 23:28. Result Comment: TEST PERFORMED BY DNA AMPLIFICATION ASSAY FOR DETECTION OF THE PATHOGENICITY LOCUS, WHICH CODES FOR BOTH THE TOXIN A(tcdA) AND TOXIN B(tcdB) GENES AND IS PRESENT IN ALL KNOWN TOXIGENIC CLOSTRIDIUM DIFFICILE STRAINS. DUE TO THE IMPROVED SENSITIVITY OF THE DNA AMPLIFICATION METHOD USED, TESTING OF MULTIPLE SPECIMENS OR REPEAT TESTING WITHIN 7 DAYS IS NOT INDICATED. Performed By: #### C DPCR ####[id number] [place] [address] Vital Signs Date Time Vital Sign Value Performing Clinician Gerardo acosta 07-04-2025 14:40-0400 Body temperature 98.6 [degF] Waleska Leyva DPRamesh Work Phone: [facility] 07-04-2025 14:40-0400 Diastolic blood pressure 75 mm[Hg] Waleska Leyva DPM Work Phone: [facility] 07-04-2025 14:40-0400 Heart rate 89 /min Waleska Roanoke DPM Work Phone: [facility] 07-04-2025 14:40-0400 Systolic blood pressure 116 mm[Hg] Waleska Roanoke DPM Work Phone: [facility] 06-06-2025 14:13-0400 Body height 152.4 cm Verito Elder DO Work Phone: [facility] 06-06-2025 14:13-0400 Body mass index (BMI) [Ratio] 27.93 kg/m2 Verito Elder DO Work Phone: [facility] 06-06-2025 14:13-0400 Body temperature 98.01 [degF] Verito Elder DO Work Phone: [facility] 06-06-2025 14:13-0400 Body weight 64.86 kg Verito Elder DO Work Phone: [facility] 06-06-2025 14:13-0400 Diastolic blood pressure 73 mm[Hg] Verito Elder DO Work Phone: [facility] 06-06-2025 14:13-0400 Heart rate 73 /min Verito Elder DO Work Phone: [facility] 06-06-2025 14:13-0400 SaO2% (BldA) [Mass fraction] 100 % Verito Elder DO Work Phone: [facility] 06-06-2025 14:13-0400 Systolic blood pressure 107 mm[Hg] Verito Elder DO Work Phone: [facility] 04-27-2025 12:39-0400 Body height 154.9 cm Pac 1 Work Phone: [facility] 04-27-2025 12:39-0400 Body mass index (BMI) [Ratio] 27.45 kg/m2 Pac 1 Work Phone: [facility] 04-27-2025 12:39-0400 Body temperature 97.2 [degF] Pacc 1 Work Phone: [facility] 04-27-2025 12:39-0400 Body weight 65.9 kg Pacc 1 Work Phone: [facility] 04-27-2025 12:39-0400 Diastolic blood pressure 85 mm[Hg] Pacc 1 Work Phone: [facility] 04-27-2025 12:39-0400 Heart rate 79 /min Pacc 1 Work Phone: [facility] 04-27-2025 12:39-0400 Respiratory rate 16 /min Pacc 1 Work Phone: [facility] 04-27-2025 12:39-0400 SaO2% (BldA) [Mass fraction] 100 % Pacc 1 Work Phone: [facility] 04-27-2025 12:39-0400 Systolic blood pressure 124 mm[Hg] Pacc 1 Work Phone: [facility] 01-06-2025 09:30-0400 Body mass index (BMI) [Ratio] 27.08 kg/m2 Rosana Roa MD Work Phone: [facility] 01-06-2025 09:30-0400 Body weight 65 kg Rosana Roa MD Work Phone: [facility] 01-06-2025 09:30-0400 Diastolic blood pressure 68 mm[Hg] Rosana Roa MD Work Phone: [facility] 01-06-2025 09:30-0400 Respiratory rate 18 /min Rosana Roa MD Work Phone: [facility] 01-06-2025 09:30-0400 Systolic blood pressure 122 mm[Hg] Rosana Roa MD Work Phone: [facility] 07-12-2024 10:10-0400 Body height 152.4 cm Caitlin Riojas MD Work Phone: [facility] 07-12-2024 10:10-0400 Body mass index (BMI) [Ratio] 27.73 kg/m2 Caitlin Riojas MD Work Phone: [facility] 07-12-2024 10:10-0400 Body weight 64.41 kg Caitlin Riojas MD Work Phone: [facility] 07-12-2024 10:10-0400 Diastolic blood pressure 85 mm[Hg] Caitlin Riojas MD Work Phone: [facility] 07-12-2024 10:10-0400 Heart rate 75 /min Caitlin Riojas MD Work Phone: [facility] 07-12-2024 10:10-0400 SaO2% (BldA) [Mass fraction] 100 % Caitlin Riojas MD Work Phone: [facility] 07-12-2024 10:10-0400 Systolic blood pressure 123 mm[Hg] Caitlin Riojas MD Work Phone: [facility] 07-07-2024 14:22-0400 Body height 152.9 cm Caitlin Riojas MD Work Phone: [facility] 07-07-2024 14:22-0400 Body mass index (BMI) [Ratio] 27.16 kg/m2 Caitlin Riojas MD Work Phone: [facility] 07-07-2024 14:22-0400 Body weight 63.5 kg Caitlin Riojas MD Work Phone: [facility] 05-05-2024 08:16-0400 Body height 154.9 cm Caitlin Riojas MD Work Phone: [facility] 05-05-2024 08:16-0400 Body mass index (BMI) [Ratio] 26.64 kg/m2 Caitlin Riojas MD Work Phone: [facility] 05-05-2024 08:16-0400 Body weight 63.96 kg Caitlin Riojas MD Work Phone: [facility] 05-05-2024 08:16-0400 Diastolic blood pressure 86 mm[Hg] Caitlin Riojas MD Work Phone: [facility] 05-05-2024 08:16-0400 Heart rate 82 /min Caitlin Riojas MD Work Phone: [facility] 05-05-2024 08:16-0400 SaO2% (BldA) [Mass fraction] 100 % Caitlin Riojas MD Work Phone: [facility] 05-05-2024 08:16-0400 Systolic blood pressure 118 mm[Hg] Caitlin Riojas MD Work Phone: [facility] 01-02-2024 11:29-0400 Body height 154.9 cm Caitlin Riojas MD Work Phone: [facility] 01-02-2024 11:29-0400 Body mass index (BMI) [Ratio] 26.26 kg/m2 Caitlin Riojas MD Work Phone: [facility] 01-02-2024 11:29-0400 Body weight 63.05 kg Caitlin Riojas MD Work Phone: [facility] 01-02-2024 11:29-0400 Diastolic blood pressure 89 mm[Hg] Caitlin Riojas MD Work Phone: [facility] 01-02-2024 11:29-0400 Heart rate 84 /min Caitlin Riojas MD Work Phone: [facility] 01-02-2024 11:29-0400 SaO2% (BldA) [Mass fraction] 100 % Caitlin Riojas MD Work Phone: [facility] 01-02-2024 11:29-0400 Systolic blood pressure 124 mm[Hg] Caitlin Riojas MD Work Phone: [facility] 09-22-2023 08:10-0500 Body weight 62.1 kg Rosana Roa MD Work Phone: [facility] 09-22-2023 08:10-0500 Diastolic blood pressure 68 mm[Hg] Rosana Roa MD Work Phone: [facility] 09-22-2023 08:10-0500 Systolic blood pressure 100 mm[Hg] Rosana Roa MD Work Phone: [facility] 05-30-2023 11:52-0400 Body mass index (BMI) [Ratio] 24.37 kg/m2 Caitlin Riojas MD Work Phone: [facility] 05-30-2023 11:52-0400 Body weight 58.51 kg Caitlin Riojas MD Work Phone: [facility] 05-30-2023 11:50-0400 Body height 154.9 cm Caitlin Riojas MD Work Phone: [facility] 05-29-2023 07:16-0400 Body height 154.3 cm Caitlin Riojas MD Work Phone: [facility] 05-29-2023 07:16-0400 Body mass index (BMI) [Ratio] 24.69 kg/m2 Caitlin Riojas MD Work Phone: [facility] 05-29-2023 07:16-0400 Body temperature 98.29 [degF] Caitlin Riojas MD Work Phone: [facility] 05-29-2023 07:16-0400 Body weight 58.79 kg Caitlin Riojas MD Work Phone: [facility] 05-29-2023 07:16-0400 Diastolic blood pressure 83 mm[Hg] Caitlin Riojas MD Work Phone: [facility] 05-29-2023 07:16-0400 Heart rate 72 /min Caitlin Riojas MD Work Phone: [facility] 05-29-2023 07:16-0400 SaO2% (BldA) [Mass fraction] 99 % Caitlin Riojas MD Work Phone: [facility] 05-29-2023 07:16-0400 Systolic blood pressure 118 mm[Hg] Caitlin Riojas MD Work Phone: [facility] 05-02-2023 07:59-0400 Body height 154.3 cm Caitlin Riojas MD Work Phone: [facility] 05-02-2023 07:59-0400 Body mass index (BMI) [Ratio] 24.73 kg/m2 Caitlin Riojas MD Work Phone: [facility] 05-02-2023 07:59-0400 Body temperature 98.49 [degF] Caitlin Riojas MD Work Phone: [facility] 05-02-2023 07:59-0400 Body weight 58.88 kg Caitlin Riojas MD Work Phone: [facility] 05-02-2023 07:59-0400 Diastolic blood pressure 84 mm[Hg] Caitlin Riojas MD Work Phone: [facility] 05-02-2023 07:59-0400 Heart rate 85 /min Caitlin Riojas MD Work Phone: [facility] 05-02-2023 07:59-0400 SaO2% (BldA) [Mass fraction] 99 % Caitlin Riojas MD Work Phone: [facility] 05-02-2023 07:59-0400 Systolic blood pressure 125 mm[Hg] Caitlin Riojas MD Work Phone: [facility] 04-04-2023 09:21-0400 Body weight 59.33 kg Rosana Roa MD Work Phone: [facility] 04-04-2023 09:21-0400 Diastolic blood pressure 66 mm[Hg] Rosana Roa MD Work Phone: [facility] 04-04-2023 09:21-0400 Systolic blood pressure 116 mm[Hg] Rosana Roa MD Work Phone: [facility] 01-31-2023 11:46-0400 Body height 153.7 cm Cami Lundberg APRN - INTERNET AND E BUSINESS PROJECT MANAGER Work Phone: [facility] 01-31-2023 11:46-0400 Body mass index (BMI) [Ratio] 25.55 kg/m2 Cami Lundberg COMMUNITY HEALTH PLANNING DIRECTOR - INTERNET AND E BUSINESS PROJECT MANAGER Work Phone: [facility] 01-31-2023 11:46-0400 Body weight 60.33 kg Cami Lundberg COMMUNITY HEALTH PLANNING DIRECTOR - INTERNET AND E BUSINESS PROJECT MANAGER Work Phone: [facility] 01-31-2023 11:46-0400 Diastolic blood pressure 84 mm[Hg] Cami Lundberg COMMUNITY HEALTH PLANNING DIRECTOR - INTERNET AND E BUSINESS PROJECT MANAGER Work Phone: [facility] 01-31-2023 11:46-0400 Heart rate 90 /min Cami Lundberg COMMUNITY HEALTH PLANNING DIRECTOR - INTERNET AND E BUSINESS PROJECT MANAGER Work Phone: [facility] 01-31-2023 11:46-0400 SaO2% (BldA) [Mass fraction] 98 % Cami Lundberg COMMUNITY HEALTH PLANNING DIRECTOR - INTERNET AND E BUSINESS PROJECT MANAGER Work Phone: [facility] [employer] 01-31-2023 11:46-0400 Systolic blood pressure 129 mm[Hg] Cami Lundberg COMMUNITY HEALTH PLANNING DIRECTOR - INTERNET AND E BUSINESS PROJECT MANAGER Work Phone: [facility] [employer] Encounters Encounter Date Encounter Type Care Provider Facility Start: 07-04-2025 End: 07-04-2025 Office outpatient new 20 minutes Waleska Leyva DPM Work Phone: [facility] Comment on above: Acquired plantar por okeratosis (Primary Dx); Left foot pain; Right foot pain Start: 07-04-2025 End: 07-04-2025 ambulatory WALESKA LEYVA [facility] Start: 07-04-2025 End: 07-04-2025 Chart abstracting Waleska Leyva DPM Work Phone: [facility] Start: 06-06-2025 End: 06-06-2025 Patient encounter procedure Verito Elder DO Work Phone: [employer] Work Phone: Start: 06-06-2025 End: 06-06-2025 Periodic preventive med est patient 40-64yrs Verito Elder Work Phone: [facility] Comment on above: Annual physical exam (Primary Dx); Raynaud's phenomenon without gangrene; Anxiety; Encounter for screening mammogram for malignant neoplasm of breast Start: 06-06-2025 End: 06-06-[facility] Start: 06-06-2025 End: 06-06-2025 Encounter for general adult medical examination without abnormal findings VERITO MERINOUGH [facility] Start: 05-26-2025 End: 05-26-[address] Caitlin Riojas MD Work Phone: -Laboratory [place] Start: 05-26-2025 End: 05-26-[address] Uyen Cortes MD -[facility] Work Phone: Start: 05-26-2025 End: 05-26-2025 ambulatory [facility] Facility:[facility] Start: 05-19-2025 End: 05-19-2025 Telephone encounter Cami Bah MD Work Phone: Obstetrics/Gynecology Comment on above: Appointment Start: 05-12-2025 End: 05-12-2025 Telemedicine consultation with patient Cami Bah MD Work Phone: Obstetrics/Gynecology Start: 05-12-2025 End: 05-12-2025 ambulatory Cami Bah MD Work Phone: Obstetrics/Gynecology Comment on above: Post-operative state [Z98.890] (Primary Dx) Start: 05-11-2025 End: 05-11-2025 ambulatory CAMI BAH Facility:[facility] Start: 04-27-2025 End: 04-27-2025 Admission to [place] [id number] Work Phone: Pre Anesthesia Start: 04-27-2025 End: 04-27-2025 Anesthesia consultation [place] [address] Work Phone: Pre Anesthesia Comment on above: Rheumatoid arthritis , involving unspecified site, unspecified whether rheumatoid factor present (HCC); Raynaud's disease without gangrene; Gastro-esophageal reflux disease without esophagitis Start: 04-27-2025 End: 04-27-2025 ambulatory [facility] Facility:[facility] Start: 02-22-2025 End: 02-22-[address] Caitlin Riojas MD Work Phone: [facility] Work Phone: Start: 02-22-2025 End: 02-22-[address] Uyen Cortes MD -Laboratory, [place] Work Phone: Start: 02-22-2025 End: 02-22-2025 ambulatory [facility] Facility:[facility] Start: 02-10-2025 End: 02-10-2025 ambulatory [facility] Facility:[facility] Start: 01-18-2025 End: 03-20-2025 Follow-up encounter Rosana Roa MD Work Phone: Obstetrics/Gynecology Start: 01-06-2025 End: 01-06-2025 ambulatory ROSANA ROA Facility:[facility] Start: 01-06-2025 End: 01-06-2025 Patient encounter procedure Rosana Roa MD Work Phone: Obstetrics/Gynecology Comment on above: Encounter for gyneco logical examination (general) (routine) without abnormal findings (Primary Dx) Start: 01-06-2025 End: 01-06-2025 Patient encounter status Rosana Roa MD Work Phone: [facility] Work Phone: Start: 11-22-2024 End: 11-22-[address] Uyen Cortes MD -Laboratory, [place] Work Phone: Start: 11-22-2024 End: 11-22-2024 ambulatory [facility] Facility:[facility] Start: 11-14-2024 End: 11-15-2024 Refill Caitlin Riojas MD Work Phone: [facility] Comment on above: Raynaud's disease wi thout gangrene Start: 08-23-2024 End: 08-23-2024 ambulatory [facility] Facility:[facility] Start: 07-15-2024 End: 07-15-2024 Orders Only Caitlin Riojas MD Work Phone: [facility] Comment on above: Arthralgia of both h ands (Primary Dx); Positive MAYITO (antinuclear antibody) Start: 07-14-2024 End: 07-18-2024 Orders Only Caitlin Riojas MD Work Phone: [facility] Comment on above: Positive MAYITO (antinu clear antibody) (Primary Dx) Start: 07-12-2024 End: 07-12-2024 Office outpatient visit 15 minutes Caitlin Riojas MD Work Phone: [facility] Comment on above: Arthralgia of both h ands (Primary Dx); Abrasion of right lower extremity, initial encounter Start: 07-12-2024 End: 07-12-2024 ambulatory [facility] Start: 07-09-2024 End: 07-09-2024 ambulatory Arelis Pearson Clinical Communication Start: 07-09-2024 End: 07-09-2024 Patient encounter procedure Arelis Pearson Clinical Communication Start: 07-07-2024 End: 07-07-2024 Subsequent hospital visit by physician Caitlin Riojas MD Work Phone: [facility] Comment on above: Screening mammogram, encounter for Start: 07-07-2024 End: 07-07-2024 ambulatory [facility] Start: 05-05-2024 End: 05-05-2024 Patient encounter status Caitlin Riojas MD Work Phone: [facility] Work Phone: Start: 05-05-2024 End: 05-05-2024 Periodic preventive med est patient 40-64yrs Caitlin Riojas MD Work Phone: [facility] Comment on above: Routine adult health maintenance (Primary Dx); Screening mammogram, encounter for; Other fatigue Start: 01-22-2024 Orders Only Caitlin Christian on Work Phone: [facility] Comment on above: Raynaud's disease wi thout gangrene Start: 01-02-2024 End: 01-02-2024 Office outpatient visit 15 minutes Caitlin Riojas MD Work Phone: [facility] Comment on above: Lymphadenitis, acute (Primary Dx); Raynaud's disease without gangrene; COVID-19 Start: 12-30-2023 ambulatory [facility] Start: 12-30-2023 Patient encounter procedure Jacqui Gandara RN [facility] Clinical [facility] Start: 12-09-2023 Orders Only Caitlin Christian on Work Phone: [facility] Comment on above: COVID-19 (Primary Dx ) Start: 12-08-2023 ambulatory Molly Luu RN [facility] Cl inical Communication Start: 12-08-2023 Patient encounter procedure Molly Luu RN [facility] Clinical Communication Start: 12-08-2023 End: 12-08-2023 Office outpatient visit 15 minutes Michellejacky Wolf COMMUNITY HEALTH PLANNING DIRECTOR - INTERNET AND E BUSINESS PROJECT MANAGER Work Phone: [facility] Comment on above: COVID-19 (Primary Dx ) Start: 09-23-2023 Refill Caitlin Christian on Work Phone: [facility] Comment on above: Tachycardia Start: 09-22-2023 End: 09-22-2023 Patient encounter procedure Rosana Roa MD Work Phone: Obstetrics/Gynecology Comment on above: Encounter for gyneco logical examination (general) (routine) without abnormal findings (Primary Dx) Start: 09-22-2023 End: 09-22-2023 Patient encounter status Rosana Roa MD Work Phone: [facility] Work Phone: Start: 08-11-2023 End: 08-11-2023 ambulatory [facility] Work Phone: Start: 08-11-2023 End: 08-11-2023 Patient encounter procedure [facility], [facility] Work Phone: Start: 07-07-2023 Orders Only Caitlin Christian on Work Phone: [facility] Start: 05-30-2023 End: 05-30-2023 Subsequent hospital visit by physician Caitlin Riojas MD Work Phone: [facility] Comment on above: Screening mammogram, encounter for Start: 05-29-2023 End: 05-29-2023 Office outpatient visit 15 minutes Caitlin Riojas MD Work Phone: [facility] Comment on above: Anxiety (Primary Dx) ; Tachycardia Start: 05-29-2023 End: 05-29-2023 Office outpatient visit 25 minutes Caitlin Riojas MD Work Phone: [facility] Comment on above: Anxiety (Primary Dx) ; Tachycardia Start: 05-27-2023 ambulatory Olga Charles RN [facility] Clinical Communication Start: 05-27-2023 Patient encounter procedure Olga Charles RN [facility] Clinical Communication Start: 05-02-2023 Transcribe Orders Caitlin valenzuela MD Work Phone: [facility] Comment on above: Encounter for screen ing mammogram for malignant neoplasm of breast (Primary Dx) Start: 05-02-2023 End: 05-02-2023 Patient encounter status Caitlin Riojas MD Work Phone: [facility] Work Phone: Start: 05-02-2023 End: 05-02-2023 Periodic preventive med est patient 40-64yrs Caitlin Riojas MD Work Phone: [facility] Comment on above: Routine adult health maintenance (Primary Dx); Screening mammogram, encounter for; Other fatigue Start: 04-04-2023 Refill Rosana kahn MD Work Phone: Obstetrics/Gynecology Comment on above: Med Change Request Start: 04-04-2023 End: 04-04-2023 Patient encounter procedure Rosana Roa MD Work Phone: Obstetrics/Gynecology Comment on above: Female infertility ( Primary Dx); History of ectopic Start: 01-31-2023 ambulatory Tanisha Reyes RN [facility] Cl inical Communication Start: 01-31-2023 Patient encounter procedure Tanisha Reyes RN [facility] Clinical Communication Start: 01-31-2023 End: 01-31-2023 Office outpatient visit 10 minutes Cami Lundberg APRN - INTERNET AND E BUSINESS PROJECT MANAGER Work Phone: [facility] Comment on above: Skin problem (Primar y Dx) Start: 07-13-2022 End: 07-13-2022 ambulatory [facility] Work Phone: Start: 07-13-2022 End: 07-13-2022 Patient encounter procedure [facility]Cat Scan, [facility] Start: 05-22-2022 End: 05-22-2022 Subsequent hospital visit by physician Caitlin Riojas MD Work Phone: [facility] Comment on above: Arrived Start: 03-08-2022 ambulatory Maximo strickland MD Work Phone: Obstetrics/Gynecology Comment on above: Side effect question Start: 05-04-2021 End: 05-04-2021 Subsequent hospital visit by physician Caitlin Riojas MD Work Phone: [facility] Comment on above: Screening mammogram, encounter for Start: 10-31-2018 End: 10-31-2018 Emergency department [facility] Procedures Date Procedure Procedure Detail Performing Clinician Start: 06-06-2025 Adult depression scr eening assessment Verito Elder DO Work Phone: Start: 01-06-2025 Microscopic observat ion [Identifier] in Cervix by Cyto stain Verito Elder Work Phone: Start: 11-22-[address] Adelaida Riojas MD Work Phone: Start: 11-22-[address] Vince Riojas MD Work Phone: Start: 11-22-2024 Measurement of renal function Dr. Caitlin Riojas MD Work Phone: Comment on above: GFR Calc Start: 07-07-2024 End: 07-07-2024 Screening digital breast tomosynthesis bi Caitlin Riojas MD Work Phone: Start: 01-02-2024 Adult depression scr eening assessment Caitlin Riojas MD Work Phone: Start: 08-11-2023 Bacteria identificat ion test Start: 05-30-2023 End: 05-30-2023 Mammography Caitlin Riojas MD Work Phone: Start: 05-02-2023 Adult depression scr eening assessment Caitlin Riojas MD Work Phone: Start: 07-13-2022 CT of face Start: 05-23-2022 Mammography Tanisha hidalgo RN Start: 05-22-2022 Mammography Rosana kolb MD Work Phone: Start: 08-03-2020 Microscopic observat ion [Identifier] in Cervix by Cyto stain Caitlin Riojas MD Work Phone: Plan of Treatment Date Care Activity Detail Author Start: 2057 RSV Immunization for Adults (1 - 1-dose 75+ series) RSV Immunization for Adults (1 - 1-dose 75+ series) [employer] Start: 2042 RSV Immunization age d 60 or older (1 - 1-dose 60+ series) RSV Immunization aged 60 or older (1 - 1-dose 60+ series) [employer] [employer] Start: 2032 Zoster Vaccines (1 of 2) Zoste r Vaccines (1 of 2) [facility] Start: 01-06-2030 Screening for malign ant neoplasm of cervix Cervical Cancer Screening [facility] Start: 01-07-2028 Screening for malign ant neoplasm of cervix [facility] Start: 04-29-2027 Lipid panel Lipids [facility] Start: 06-14-2026 End: 06-14-2026 Patient encounter procedure 06/14/2026 3:20 PM EDT Office Visit [facility] [address] [place] [id number] Verito Elder DO [address] [place] [address] [facility] Start: 06-06-2026 Depression Screening Depression Scre ening [facility] Start: 06-06-2026 History and physical examination, annual for health maintenance Wellness Visit [facility] Start: 04-03-2026 DTaP/Tdap/Td vaccine (2 - Td or Tdap) DTaP/Tdap/Td vaccine (2 - Td or Tdap) [facility] Work Phone: Start: 04-03-2026 DTaP/Tdap/Td vaccine (3 - Td or Tdap) DTaP/Tdap/Td vaccine (3 - Td or Tdap) [facility] Start: 04-03-2026 DTaP/Tdap/Td Vaccine s (3 - Td or Tdap) DTaP/Tdap/Td Vaccines (3 - Td or Tdap) [facility] Start: 04-03-2026 Tetanus vaccination Tetanus: Every 1 0yrs [facility] Start: 04-03-2026 Urine microalbumin profile DTa P,Tdap,Td Vaccine (3 - Td or Tdap) [facility] Start: 01-13-2026 End: 01-13-2026 Patient encounter procedure 01/13/2026 9:00 AM EDT Office Visit Obstetrics/Gynecology [address] [address] Rosana Roa MD [address] [place] [address] Annual Obstetrics/Gynecolo gy Comment on above: Annual Start: 08-02-2025 HPV TESTING HPV TESTING [facility] Start: 08-02-2025 PAP TESTING PAP TESTING [facility] Start: 08-02-2025 Screening for malign ant neoplasm of cervix Cervical Cancer Screening [facility] Start: 07-07-2025 Screening for malign ant neoplasm of breast [facility] Start: 06-20-2025 COVID-19 Vaccine ( season) COVID-19 Vaccine ( season) [facility] Start: 06-20-2025 Influenza vaccination [facility] Start: 06-06-2025 End: 06-06-2025 Patient encounter procedure 06/06/2025 2:20 PM EDT Office Visit [facility] [address] [place] [phone] Verito Elder DO [address] [place], [place] [id number] [facility] Start: 06-06-2025 End: 08-06-2026 DBT Breast - bilateral screening Bilateral screening mammogram with tomosynthesis Imaging Routine Encounter for screening mammogram for malignant neoplasm of breast Expected: 06/06/2025, Expires: 08/06/2026 [facility] Work Phone: Comment on above: Expected: 06/06/2025 , Expires: 08/06/2026 Start: 06-06-2025 End: 06-06-2026 Lipid 1996 panel - Serum or Plasma Lipid panel Lab Routine Annual physical exam Expected: 06/06/2025 (Approximate), Expires: 06/06/2026 [facility] Comment on above: Expected: 06/06/2025 (Approximate), Expires: 06/06/2026 Start: 05-19-2025 End: 05-19-2025 ambulatory 05/19/2025 11:30 AM EDT [facility] Obstetrics/Gynecology [address] [address] Cami Bah MD [address] [address] post op Obstetrics/Gynecolo gy Comment on above: post op Start: 05-12-2025 End: 05-12-2025 ambulatory 05/12/2025 11:45 AM EDT [facility] Obstetrics/Gynecology [address] [address] Cami Bah MD [address] [address] post op Obstetrics/Gynecolo gy Comment on above: post op Start: 05-11-2025 End: 05-11-2025 Admission to same day surgery center [facility] Comment on above: LAPAROSCOPIC SALPING ECTOMY Start: 05-11-2025 End: 05-11-2025 Laparoscopy w/rmvl adnexal structures [place] Start: 05-11-2025 Subsequent hospital visit by physician [facility] Comment on above: Encounter for steril ization [Z30.2] Start: 05-02-2025 Screening for malign ant neoplasm of cervix [facility] Start: 04-27-2025 End: 04-27-2025 Anesthesia consultation 04/27/2025 1:00 PM EDT PAT Pre Anesthesia [address] [place] [address] 1, [facility] [place] [address] [place] [address] [facility] Pre Anesthesia Comment on above: PACC Start: 02-10-2025 End: 02-10-2025 Patient encounter procedure 02/10/2025 1:30 PM EDT Office Visit Obstetrics/Gynecology [address] [address] Cami Bah MD [address] [address] Discuss srugical sterilization Obstetrics/Gynecolo gy Comment on above: Discuss srugical kevin rilization Start: 01-01-2025 Depression Screening Depression Scre ening [facility] Start: 07-12-2024 End: 07-12-2025 C reactive protein [Mass/volume] in Serum or Plasma C-reactive protein Lab Routine Arthralgia of both hands Expected: 07/12/2024 (Approximate), Expires: 07/12/2025 [facility] Work Phone: Comment on above: Expected: 07/12/2024 (Approximate), Expires: 07/12/2025 Start: 07-12-2024 End: 07-12-2025 Erythrocyte sedimentation rate Sedimentation rate, automated Lab Routine Arthralgia of both hands Expected: 07/12/2024 (Approximate), Expires: 07/12/2025 [facility] Comment on above: Expected: 07/12/2024 (Approximate), Expires: 07/12/2025 Start: 07-12-2024 End: 07-12-2025 Nuclear Ab [Titer] in Serum by Immunofluorescence MAYITO Lab Routine Arthralgia of both hands Expected: 07/12/2024 (Approximate), Expires: 07/12/2025 [facility] Comment on above: Expected: 07/12/2024 (Approximate), Expires: 07/12/2025 Start: 07-12-2024 End: 07-12-2025 Rheumatoid factor [Units/volume] in Serum or Plasma Rheumatoid factor Lab Routine Arthralgia of both hands Expected: 07/12/2024 (Approximate), Expires: 07/12/2025 [facility] Comment on above: Expected: 07/12/2024 (Approximate), Expires: 07/12/2025 Start: 07-12-2024 End: 07-12-2024 Patient encounter procedure 07/12/2024 10:20 AM EDT Office Visit [address] [place] [phone] Caitlin Riojas MD [address] [facility] [address] [place] [address] [facility] Start: 06-20-2024 COVID-19 Vaccine () COVID-19 Vaccine () [facility] Start: 06-20-2024 COVID-19 Vaccine () COVID-19 Vaccine () [facility] Start: 06-20-2024 Influenza vaccination [facility] Start: 05-31-2024 End: 07-06-2025 DBT Breast - bilateral screening Bilateral screening mammogram with tomosynthesis Imaging Routine Screening mammogram, encounter for Expected: 05/31/2024, Expires: 07/06/2025 [facility] Work Phone: Comment on above: Expected: 05/31/2024 , Expires: 07/06/2025 Start: 05-30-2024 Screening for malign ant neoplasm of breast Mammogram [facility] Start: 05-05-2024 End: 05-05-2025 CBC panel - Blood by Automated count CBC Lab Routine Other fatigue Expected: 05/05/2024 (Approximate), Expires: 05/05/2025 [facility] Comment on above: Expected: 05/05/2024 (Approximate), Expires: 05/05/2025 Start: 05-05-2024 End: 05-05-2025 Comprehensive metabolic 1998 panel - Serum or Plasma Comprehensive metabolic panel Lab Routine Routine adult health maintenance Expected: 05/05/2024 (Approximate), Expires: 05/05/2025 [facility] Comment on above: Expected: 05/05/2024 (Approximate), Expires: 05/05/2025 Start: 05-05-2024 End: 05-05-2025 Thyrotropin [Units/volume] in Serum or Plasma TSH Lab Routine Other fatigue Expected: 05/05/2024 (Approximate), Expires: 05/05/2025 [facility] Comment on above: Expected: 05/05/2024 (Approximate), Expires: 05/05/2025 Start: 05-05-2024 End: 05-05-2024 Patient encounter procedure [facility] Start: 05-02-2024 [facility] Start: 08-03-2023 Screening for malign ant neoplasm of cervix [facility] Start: 06-20-2023 Covid-19 Vaccine ( season) Covid-19 Vaccine () [facility] Start: 06-20-2023 Influenza vaccination [facility] Start: 05-30-2023 End: 05-30-2023 Patient encounter procedure 05/30/2023 11:40 AM EDT Appointment [facility] [address] [place] [phone] Caitlin Riojas MD [address] [place], [place] [id number] [facility] Start: 05-29-2023 End: 05-29-2023 Patient encounter procedure 05/29/2023 7:20 AM EDT Office Visit [facility] [address] [place] [phone] Caitlin Riojas MD [address], [address] [place], [place] [id number] [facility] Start: 05-23-2023 Screening for malign ant neoplasm of breast Mammogram [facility] Start: 05-22-2023 Mammography [facility] Start: 05-02-2023 End: 05-02-2024 CBC panel - Blood by Automated count CBC Lab Routine Routine adult health maintenance Expected: 05/02/2023 (Approximate), Expires: 05/02/2024 [facility] Comment on above: Expected: 05/02/2023 (Approximate), Expires: 05/02/2024 Start: 05-02-2023 End: 05-02-2024 Comprehensive metabolic 1998 panel - Serum or Plasma Comprehensive metabolic panel Lab Routine Routine adult health maintenance Expected: 05/02/2023 (Approximate), Expires: 05/02/2024 [facility] Comment on above: Expected: 05/02/2023 (Approximate), Expires: 05/02/2024 Start: 05-02-2023 End: 07-03-2024 DBT Breast - bilateral screening Bilateral screening mammogram with tomosynthesis Imaging Routine Screening mammogram, encounter for Expected: 05/02/2023, Expires: 07/03/2024 [facility] [facility] Work Phone: Comment on above: Expected: 05/02/2023 , Expires: 07/03/2024 Start: 05-02-2023 End: 05-02-2024 Hepatitis C virus Ab [Presence] in Serum or Plasma by Immunoassay Hepatitis C antibody Lab Routine Routine adult health maintenance Expected: 05/02/2023 (Approximate), Expires: 05/02/2024 [facility] [employer] Comment on above: Expected: 05/02/2023 (Approximate), Expires: 05/02/2024 Start: 05-02-2023 End: 05-02-2024 Lipid 1996 panel - Serum or Plasma Lipid panel Lab Routine Routine adult health maintenance Expected: 05/02/2023 (Approximate), Expires: 05/02/2024 [facility] [employer] Comment on above: Expected: 05/02/2023 (Approximate), Expires: 05/02/2024 Start: 05-02-2023 End: 05-02-2024 Thyrotropin [Units/volume] in Serum or Plasma TSH Lab Routine Other fatigue Expected: 05/02/2023 (Approximate), Expires: 05/02/2024 [facility] [employer] Comment on above: Expected: 05/02/2023 (Approximate), Expires: 05/02/2024 Start: 05-02-2023 End: 05-02-2023 Patient encounter procedure 05/02/2023 Office Visit Family Medicine Caitlin Riojas MD [address] [place] [address], [address] [place] [address] [facility] Start: 04-29-2023 Depression Screen Depression Screen [facility] Start: 10-20-2022 [facility]MENT [facility] Start: 06-20-2022 Influenza vaccination [facility] Start: 05-29-2022 End: 05-29-2022 Patient encounter procedure 05/29/2022 Office Visit Family Medicine Caitlin Riojas MD [address] [place] [address], [address] [place] [address] [facility] Start: 2022 Screening for malign ant neoplasm of breast Breast cancer screen [facility] Start: 04-29-2022 End: 04-29-2022 Patient encounter procedure 04/29/2022 Office Visit Family Medicine Caitlin Riojas MD [address] [place] [address], [address] [place] [address] [phone] [facility] Start: 10-05-2021 COVID-19 VACCINE (2 - Booster for Alice series) COVID-19 VACCINE (2 - Booster for Alice series) [facility] Start: 09-07-2021 COVID-19 Vaccine (2 - Alice risk series) COVID-19 Vaccine (2 - Alice risk series) [facility] Start: 06-20-2021 Influenza vaccination Flu vaccine (# 1) [facility] Work Phone: Start: 2012 Screening for malign ant neoplasm of cervix [facility] Start: 2003 Screening for malign ant neoplasm of cervix Pap Smear [facility] Start: 2001 Hepatitis B Vaccine (1 of 3 - 19+ 3-dose series) Hepatitis B Vaccine (1 of 3 - 19+ 3-dose series) [facility] Start: 2001 Hepatitis B Vaccines (1 of 3 - 19+ 3-dose series) Hepatitis B Vaccines (1 of 3 - 19+ 3-dose series) [facility] Start: 2001 Pneumococcal Vaccine : Ped or At-Risk (1 of 2 - PCV) Pneumococcal Vaccine: Ped or At-Risk (1 of 2 - PCV) [facility] Start: 2001 Urine microalbumin profile DTA P,TDAP,TD (1 - Tdap) [facility] Start: 2000 Anxiety Screening Anxiety Screening [facility] Start: 2000 Depression Screening Depression Scre ening [facility] Start: 2000 Diabetes mellitus screening Diabetes Screening [facility] Start: 2000 HEPATITIS C SCREENING HEPATITIS C SC REENING [facility] Start: 2000 Hepatitis C screening S [facility] Start: 2000 HIV SCREENING HIV SCREENING [facility] Start: 2000 HIV screening HIV Screening [facility] Start: 1997 HIV screening HIV Screening [facility] Start: 1995 Varicella vaccination Varicell a Vaccines (1 of 2 - 13+ 2-dose series) [facility] Start: 1994 Adult depression scr eening assessment [facility] Start: 1994 COVID-19 Vaccine (1) COVID-19 Vaccin e (1) [facility] Work Phone: Start: 1983 MMR Vaccines (1 of 1 - Standard series) MMR Vaccines (1 of 1 - Standard series) [facility] Start: 1983 Varicella vaccination Varicell a Vaccines (1 of 2 - 2-dose childhood series) [facility] Start: 1983 Varicella vaccine (1 of 2 - 2-dose childhood series) Varicella vaccine (1 of 2 - 2-dose childhood series) [facility] Start: 1982 HEPATITIS B (1 of 3 - 3-dose series) HEPATITIS B (1 of 3 - 3-dose series) [facility] Start: 1982 Hepatitis B Vaccine (1 of 3 - 3-dose series) Hepatitis B Vaccine (1 of 3 - 3-dose series) [facility] Start: 1982 Hepatitis B Vaccines (1 of 3 - 3-dose series) Hepatitis B Vaccines (1 of 3 - 3-dose series) [facility] Start: 1982 Hepatitis C screening Hepatitis C sc reen [facility] Work Phone: Start: 1982 HIV screening HIV Screening [facility] alth PAP TEST PAP TEST Lab Rou oliverio Encounter for gynecological examination (general) (routine) without abnormal findings 01/06/2025 10:15 AM EDT [facility] Work Phone: End: 05-04-2021 Screening digital breast tomosynthesis bi Sanam Shawn Digital Screen Bilateral Imaging Routine Once for 1 Occurrences starting 05/04/2021 until 05/04/2021 [facility] Work Phone: Comment on above: Once for 1 Occurrenc es starting 05/04/2021 until 05/04/2021 Screening digital br east tomosynthesis bi Sanam Shawn Digital Screen Bilateral Imaging Routine 05/04/2021 1:59 PM EDT [facility] Work Phone: End: 05-22-2022 Screening digital breast tomosynthesis bi [facility] Work Phone: Comment on above: Once for 1 Occurrenc es starting 05/22/2022 until 05/22/2022 [facility] Immunizations Immunization Date Immunization Notes Care Provider Debbie marie 08-10-2021 Alice SARS-CoV-2 Vaccination Tanisha Reyes RN [facility] 04-25-2019 RHO(D) immune globul in - IM Caitlin Riojas MD Work Phone: [facility] Work Phone: 04-25-2019 RHO(D) immune globul in- IV or IM Maximo Jeter MD Work Phone: [facility] 04-03-2016 tetanus toxoid, redu christiana diphtheria toxoid, and acellular pertussis vaccine, adsorbed Caitlin Riojas MD Work Phone: [facility] 02-01-2015 tetanus toxoid, redu christiana diphtheria toxoid, and acellular pertussis vaccine, adsorbed Caitlin Riojas MD Work Phone: [facility] Work Phone: Payers Date Payer Category Payer Managed Care HMO (unspecified) [facility] HMO/CHOICE PLUS/IVONNE/IVONNE PLUS [id number] 2024 Self-pay [id number] 2022 Commercial Managed C are - HMO [facility] [id number] 2018 Private Health Insurance [facility] CHOICE PLUS [id number] 2018-Present [phone] [address] [place] [address] HMO [id number] 2018 Private Health Insurance [id number] 2018 Private Health Insurance [id number] 1982 Unknown [id number] Managed Care (unspecified) [facility] CHOICE PLUS [id number] Unknown [facility] PACKAGE PLAN [id number] Unknown [id number] Unknown [id number] Unknown [id number] Unknown [id number] Social History Date Type Detail Facility Start: 04-16-2021 End: 07-04-2025 Tobacco smoking status NHIS Never smoker [facility] Start: 04-16-2021 End: 07-04-2025 Tobacco use and exposure [facility] Start: 04-16-2021 End: 06-06-2025 Alcohol intake Current non-drinker of alcohol (finding) [facility] Work Phone: Start: 04-16-2021 End: 04-29-2022 History SDOH Alcohol Frequency 1 [facility] Work Phone: Start: 04-16-2021 History SDOH Social Connections Phone 5 [facility] Work Phone: Start: 04-16-2021 End: 04-29-2022 History SDOH Social Connections Gnosticist 3 [facility] Work Phone: Start: 04-16-2021 History SDOH Physica l Activity DPW 0 [facility] Work Phone: Start: 04-16-2021 End: 04-29-2022 History SDOH Transport Med 2 [facility] Work Phone: Start: 1980 Sex Assigned At Not on file [facility] Work Phone: Start: 04-19-2022 End: 05-29-2023 Exposure to SARS-CoV-2 (event) Not sure [facility] Start: 1980 Sex Assigned At Female C [facility] Start: 04-29-2022 History SDOH Financial 4 [facility] Work Phone: Start: 05-02-2023 End: 07-04-2025 History of Social function [facility] Start: 05-02-2023 End: 07-04-2025 Humiliation, Afraid, Rape, and Kick questionnaire [HARK] [facility] Within the last year , have you been afraid of your partner or ex-partner? Patient refused [facility] Are you now , , , , never or living with a partner? [facility] How often to you hav e a drink containing alcohol? Monthly or less [facility] How many standard drinks containing alcohol do you have on a typical day? 1 or 2 [facility] How often do you hav e 6 or more drinks on 1 occasion? Never [facility] How hard is it for y ou to pay for the very basics like food, housing, medical care, and heating Not very hard [facility] Do you feel stress - tense, restless, nervous, or anxious, or unable to sleep at night because your mind is troubled all the time - these days [OSQ] Only a little [facility] (I/We) worried philipp er (my/our) food would run out before (I/we) got money to buy more. Never true [facility] In the past 12 month s, was there a time when you were not able to pay the mortgage or rent on time? No [facility] Start: 08-01-2020 Gender identity Identifies as female gender (finding) [facility] Start: 08-01-2020 Sexual orientation Heterosexual (fin ding) [facility] Do you belong to any clubs or organizations such as yazdanism groups, unions, fraternal or athletic groups, or school groups? Yes [facility] Do you feel stress - tense, restless, nervous, or anxious, or unable to sleep at night because your mind is troubled all the time - these days [OSQ] To some extent [facility] Start: 05-20-2022 Sex Female (finding) [facility] Work Phone: Start: 07-04-2025 Alcoholic beverage intake Ex-drinker (finding) [facility] NEGATED: Highlighted rowStart: NINF History of tobacco use Passive smoker [facility] Functional Status Date Assessment Result Facility 06-06-2025 Patient Health Quest ionnaire 2 item (PHQ-2) [Reported] [facility] 04-24-2015 Are you deaf, or do you have serious difficulty hearing No 04/24/2015 1:12 PM CHELIT Leah Helm MA No [facility] 04-24-2015 Are you blind, or do you have serious difficulty seeing, even when wearing glasses No 04/24/2015 1:12 PM CHELIT Leah Helm MA No [facility] 04-24-2015 Do you have serious difficulty walking or climbing stairs No 04/24/2015 1:12 PM EDT Leah Helm MA No [facility] 04-24-2015 Do you have difficul ty dressing or bathing No 04/24/2015 1:12 PM EDT Leah Helm MA No [facility] 04-24-2015 Because of a physica l, mental, or emotional condition, do you have difficulty doing errands alone such as visiting a physician's office or shopping No 04/24/2015 1:12 PM EDT Leah Helm MA No [facility] Mental Status Date Assessment Result Facility 04-24-2015 Because of a physica l, mental, or emotional condition, do you have serious difficulty concentrating, remembering, or making decisions No 04/24/2015 1:12 PM EDT Leah Helm MA No [facility] Clinical Notes 04-25-2019 to 07-16-2025 Waleska Leyva DPM - 07/16/2025 8:24 PM EDTWaleska Leyva DPM - 07/16/2025 8:24 PM EDTSAlicia murguia, TECHNOLOGIST - 07/04/2025 1:23 PM EDTBchristopher Elder DO - 06/06/2025 2:20 PM EDT Note Date & Type Note Facility 07-16-2025 History of Presen t illness Narrative PPK documented in this encounter [facility] 07-16-2025 History of Presen t illness Narrative Images from the original note were not included. NEW Patient Visit Waleska Leyva DPM Patient Name: Lili Jimenez. . Date of : 1980, 45 y.o.. Gender: female. Subjective: Patient is a pleasant 45-year-old female who presents clinic complaining of painful calluses or possible warts on the bottom of her right and left foot. States that the left foot is significantly more painful. States that they are painful with ambulation and have been present for several months. No other pedal complaint at this time. Denies any trauma or injury. Denies fevers, chills, nausea, vomiting, chest pain, shortness of breath, or any other constitutional symptoms. Past Medical History: Diagnosis Date Clostridioides difficile infection Gastroesophageal reflux disease without esophagitis History of ectopic Infectious mononucleosis Irritable bowel syndrome Raynaud's phenomenon without gangrene Rheumatoid arthritis involving multiple sites with positive rheumatoid factor (HCC) Rosacea Past Surgical History: Procedure Laterality Date NASAL SEPTUM SURGERY TUBAL LIGATION Social History [1] Physical Examination: BP 116/75 (BP Location: Left arm, Patient Position: Sitting, BP Cuff Size: Adult) Pulse 89 Temp 98.6 F (37 C) (Oral) General Appearance: Alert, cooperative, no distress, appears stated age. Podiatric Exam Vascular: DP and PT pulses are palpable 2/4. Capillary refill time is less than 3 secs to distal digits. Skin temperature is warm to warm from proximal tibial tuberosity to distal digit. No appreciable edema to bilateral foot or ankle Neurological: Gross sensation is intact. Protective sensation is intact. Dermatologic: Hyperkeratotic lesions noted subsecond metatarsal head, bilaterally. Upon debridement of lesion, no underlying ulceration but a nucleated core is noted. Interdigital spaces are clean dry and intact. Musculoskeletal: Patient is able to wiggle digits. Ankle joint range of motion is intact. Muscle strength is 5/5 to dorsiflexors, plantar flexors, inverters and everters. Compartments soft and compressible. No calf pain Diagnoses: 1. Acquired plantar porokeratosis 2. Left foot pain 3. Right foot pain Imaging: Not required at this visit Assessment/Plan: Patient was seen and evaluated. Discussed all clinical findings. Patient has acquired plantar porokeratotic lesions to bilateral feet. Using a 4 mm ring curette, the nucleated core were removed and patient expressed pain relief. Discussed with patient that we can treat with cantharidin if this fails to improve or worsen. In the meantime, recommended the patient wears good supportive shoe gear. Patient is to avoid barefoot walking, slippers, walking with socks, flip-flops, slides, etc. All questions were answered to patient satisfaction. Patient understands to call with any questions or concerns. Follow-up as needed. This note was partially created using voice recognition software and is inherently subject to errors including those of syntax and sound-alike substitutions which may escape proofreading. In such instances, original meaning may be extrapolated by contextual derivation. Waleska Leyva DPM, MS Podiatric Physician & Surgeon [1] Social History Socioeconomic History Marital status: Tobacco Use Smoking status: Never Passive exposure: Never Smokeless tobacco: Never Substance and Sexual Activity Alcohol use: Not Currently Social Drivers of Health Financial Resource Strain: Low Risk (06/06/2025) Received from [facility] Overall Financial Resource Strain (CARDIA) Difficulty of Paying Living Expenses: Not hard at all Food Insecurity: No Food Insecurity (06/06/2025) Received from [facility] Hunger Vital Sign Worried About Running Out of Food in the Last Year: Never true Ran Out of Food in the Last Year: Never true Transportation Needs: No Transportation Needs (06/06/2025) Received from [facility] PRAPARE - Transportation Lack of Transportation (Medical): No Lack of Transportation (Non-Medical): No Physical Activity: Inactive (06/06/2025) Received from [facility] Exercise Vital Sign Days of Exercise per Week: 0 days Minutes of Exercise per Session: 0 min Stress: No Stress Concern Present (06/06/2025) Received from [facility] [employer] - Occupational Stress Questionnaire Feeling of Stress : Only a little Social Connections: Socially Integrated (06/06/2025) Received from [facility] Social Connection and Isolation Panel [NHANES] Frequency of Communication with Friends and Family: More than three times a week Frequency of Social Gatherings with Friends and Family: More than three times a week Attends Mandaeism Services: More than 4 times per year Active Member of Clubs or Organizations: Yes Attends Club or Organization Meetings: More than 4 times per year Marital Status: Housing Stability: Low Risk (06/06/2025) Received from [facility] Housing Stability Vital Sign Unable to Pay for Housing in the Last Year: No Number of Times Moved in the Last Year: 0 Homeless in the Last Year: No documented in this encounter [facility] 07-04-2025 History of Presen t illness Narrative Abstracted from [facility] documented in this encounter [facility] 06-06-2025 Evaluation + Plan note Associated Problem(s): Raynaud's phenomenon without gangrene Chronic. Controlled on amlodipine. Mgmt per rheum. [facility] 06-06-2025 History of Presen t illness Narrative Images from the original note were not included. [facility] [place] [address] [facility] [id number] Visit Type: Physical PCP: Verito Elder DO Reason for Visit: Annual Exam (Physical, no concerns today), New Patient (New to provider), and Referral (Needs referral for Mammogram) ASSESSMENT AND PLAN Assessment & Plan Annual physical exam Up to date on pap smear-Dr. Roa. Mammo ordered. Orders: Lipid panel; Future Raynaud's phenomenon without gangrene Chronic. Controlled on amlodipine. Mgmt per rheum. Anxiety Chronic. Uncontrolled on lexapro. Switch back to cymbalta for better control. Stay on 30mg dose. Let rheum manage the pain component. Encounter for screening mammogram for malignant neoplasm of breast Orders: Bilateral screening mammogram with tomosynthesis; Future Follow up in about 1 year (around 06/06/2026) for Annual. There are no Patient Instructions on file for this visit. SUBJECTIVE HPI Lili Jimenez presents for an annual exam. She has the following concerns today: Rheumatoid arthritis - diagnosed in Aug 2024 Raynauds - amlodipine H/o cymbalta - 30mg was good, but on increased dose noted constipation Lexapro switched by Dr. Tavarez. But not helping the anxiety and dreaming. Review of Systems Pertinent ROS noted in the HPI and all other systems are negative. Allergies[1] Current Medications[2] Medical History[3] Social History[4] Surgical History[5] Family History[6] OBJECTIVE BP 107/73 (BP Location: Right arm, Patient Position: Sitting, BP Cuff Size: Adult) Pulse 73 Temp 36.7 C (98 F) (Temporal) Ht 5' (1.524 m) Wt 143 lb (64.9 kg) LMP 06/02/2025 (Exact Date) Comment: Regular SpO2 100% BMI 27.93 kg/m Physical Exam Constitutional: General: She is not in acute distress. Appearance: Normal appearance. HENT: Head: Normocephalic and atraumatic. Right Ear: Tympanic membrane, ear canal and external ear normal. Left Ear: Tympanic membrane, ear canal and external ear normal. Mouth/Throat: Mouth: Mucous membranes are moist. Pharynx: Oropharynx is clear. No posterior oropharyngeal erythema. Eyes: General: No scleral icterus. Extraocular Movements: Extraocular movements intact. Conjunctiva/sclera: Conjunctivae normal. Pupils: Pupils are equal, round, and reactive to light. Neck: Thyroid: No thyroid mass or thyromegaly. Cardiovascular: Rate and Rhythm: Normal rate and regular rhythm. Heart sounds: No murmur heard. Pulmonary: Effort: Pulmonary effort is normal. No respiratory distress. Breath sounds: Normal breath sounds. No wheezing, rhonchi or rales. Abdominal: General: Abdomen is flat. Bowel sounds are normal. There is no distension. Palpations: Abdomen is soft. There is no hepatomegaly, splenomegaly or mass. Tenderness: There is no abdominal tenderness. There is no guarding. Musculoskeletal: Cervical back: Normal range of motion. No tenderness. Lymphadenopathy: Cervical: No cervical adenopathy. Neurological: Mental Status: She is alert. Psychiatric: Attention and Perception: Attention normal. Mood and Affect: Mood normal. Behavior: Behavior normal. Health Maintenance The 10-year ASCVD risk score (Vivian COLLIER, et al., 2019) is: 0.3% Values used to calculate the score: Age: 45 years Sex: Female Is Non- : No Diabetic: No Tobacco smoker: No Systolic Blood Pressure: 107 mmHg Is BP treated: No HDL Cholesterol: 63 mg/dL Total Cholesterol: 178 mg/dL Health Maintenance Due Topic Date Due MMR Vaccines (1 of 1 - Standard series) Never done Varicella Vaccines (1 of 2 - 13+ 2-dose series) Never done Diabetes Screening Never done Hepatitis B Vaccines (1 of 3 - 19+ 3-dose series) Never done COVID-19 Vaccine ( - 2023- season) 2024 Cervical Cancer Screening 05/02/2025 Mammogram 07/07/2025 Immunization History Administered Date(s) Administered [facility] SARS-CoV-2 Vaccination 08/10/2021 Rho(D)-IG 04/25/2019 Rho(D)-IG IM 04/25/2019 Tdap 02/01/2015, 04/03/2016 Medications Discontinued During This Encounter Medication Reason amLODIPine (Norvasc) 2.5 MG tablet Med list cleanup cholecalciferol 25 MCG (1000 UT) capsule Med list cleanup escitalopram (Lexapro) 10 MG tablet Verito Elder, 06/06/2025 3:07 PM There are no Patient Instructions on file for this visit. [1] Allergies Allergen Reactions Blue Dyes (Parenteral) Diarrhea Other reaction(s): Vomiting Sumatriptan Other reaction(s): AOF, Intolerance, Intolerance [2] Current Outpatient Medications: amLODIPine (Norvasc) 5 MG tablet, Take 10 mg by mouth daily., Disp: , Rfl: famotidine-calcium carb-mag hydroxide (Pepcid Complete) 10-800-165 MG chewable tablet, Chew 1 tablet every evening., Disp: , Rfl: hydroxychloroquine (Plaquenil) 200 MG tablet, TAKE 11/2 TABLET(S) ORAL EVERY DAY, Disp: , Rfl: loratadine (Claritin) 10 MG tablet, Take 10 mg by mouth daily as needed., Disp: , Rfl: pantoprazole (ProtoNix) 40 MG EC tablet, Take 40 mg by mouth daily., Disp: , Rfl: DULoxetine (Cymbalta) [address] capsule, Take 1 capsule (30 mg) by mouth daily. Do not crush or chew., Disp: 90 capsule, Rfl: 3 [3] Past Medical History: Diagnosis Date Allergies dog, mold, pollen etc COVID-19 GERD (gastroesophageal reflux disease) [4] Social History Socioeconomic History Marital status: Tobacco Use Smoking status: Never Passive exposure: Never Smokeless tobacco: Never Vaping Use Vaping status: Never Used Substance and Sexual Activity Alcohol use: No Drug use: Never Sexual activity: Yes Partners: Male Social Drivers of Health Financial Resource Strain: Low Risk (06/06/2025) Overall Financial Resource Strain (CARDIA) Difficulty of Paying Living Expenses: Not hard at all Food Insecurity: No Food Insecurity (06/06/2025) Hunger Vital Sign Worried About Running Out of Food in the Last Year: Never true Ran Out of Food in the Last Year: Never true Transportation Needs: No Transportation Needs (06/06/2025) PRAPARE - Transportation Lack of Transportation (Medical): No Lack of Transportation (Non-Medical): No Physical Activity: Inactive (06/06/2025) Exercise Vital Sign Days of Exercise per Week: 0 days Minutes of Exercise per Session: 0 min Stress: No Stress Concern Present (06/06/2025) [employer] - Occupational Stress Questionnaire Feeling of Stress : Only a little Social Connections: Socially Integrated (06/06/2025) Social Connection and Isolation Panel [NHANES] Frequency of Communication with Friends and Family: More than three times a week Frequency of Social Gatherings with Friends and Family: More than three times a week Attends Mandaeism Services: More than 4 times per year Active Member of Clubs or Organizations: Yes Attends Club or Organization Meetings: More than 4 times per year Marital Status: Intimate Partner Violence: Patient Declined (06/06/2025) Humiliation, Afraid, Rape, and Kick questionnaire Fear of Current or Ex-Partner: Patient declined Emotionally Abused: Patient declined Physically Abused: Patient declined Sexually Abused: Patient declined Housing Stability: Low Risk (06/06/2025) Housing Stability Vital Sign Unable to Pay for Housing in the Last Year: No Number of Times Moved in the Last Year: 0 Homeless in the Last Year: No [5] Past Surgical History: Procedure Laterality Date OTHER SURGICAL HISTORY 09/2017 miscarraige w/o D&C [6] Family History Problem Relation Name Age of Onset Breast cancer Mother Angeles 55 Had genetic testing - non genetic cancer Other (17647) Father Romeo stomach issues Kidney disease Father Romeo No Known Problems Brother Heart disease Maternal Grandmother Samantha has had open heart surgery Colon cancer Maternal Grandfather Doug Heart disease Maternal Grandfather Doug has had heart cath Dementia Maternal Grandfather Doug Heart attack Paternal Grandmother hx of No Known Problems Paternal Grandfather Breast cancer Father's Sister documented in this encounter [facility] 06-06-2025 Miscellaneous Notes Associated Problem(s): Raynaud's phenomenon without gangrene Chronic. Controlled on amlodipine. Mgmt per rheum. documented in this encounter [facility] 05-19-2025 Telephone encounter Note Called patient to inform today's visit cancelled. Left message advising patient to call in with any concerns or questions and to reschedule phone post op if needed. [facility] 05-19-2025 Miscellaneous Notes Called patient to inform today's visit cancelled. Left message advising patient to call in with any concerns or questions and to reschedule phone post op if needed. documented in this encounter [facility] 05-12-2025 Note HNO ID: [id number] Author: CAMI BAH MD Service: ? Author Type: Physician Type: Progress Notes Filed: 05/12/2025 16:25 Note Text: Patient presents by phone and confirms name, , and consent to telephone post op. Lili underwent a clinically uncomplicated laparoscopic left salpingectomy on 05/11/25. Today she states she feels good. The only issue I have is that it marinelli when I pee. I dont really have any pain. Using motrin and tylenol for pain, is passing gas. Final pathology pending Reviewed intra-op findings, post op expectations and precautions. Chart updated to reflect surgical history. All questions and concerns addressed. A/P: POD#1 FU in 2 weeks to review final pathology and adjust restrictions Cami Bah MD 4 Min spent directly with patient and additional time on chart review, updating, documentation, orders, and scheduling [facility] 05-12-2025 History of Presen t illness Narrative Patient presents by phone and confirms name, , and consent to telephone post op. Lili underwent a clinically uncomplicated laparoscopic left salpingectomy on 05/11/25. Today she states she feels good. The only issue I have is that it marinelli when I pee. I dont really have any pain. Using motrin and tylenol for pain, is passing gas. Final pathology pending Reviewed intra-op findings, post op expectations and precautions. Chart updated to reflect surgical history. All questions and concerns addressed. A/P: POD#1 FU in 2 weeks to review final pathology and adjust restrictions Cami Bah MD 4 Min spent directly with patient and additional time on chart review, updating, documentation, orders, and scheduling documented in this encounter [facility] 05-11-2025 Note HNO ID: [id number] Author: MICHELLE ANAND APRN.ELECTRICAL SOLDERER Service: Anesthesiology Author Type: Nurse Supervisor Travel Trailer Type: Anesthesia Procedure Notes Filed: 05/11/2025 13:51 Note Text: ANESTHESIOLOGY PROCEDURE NOTE Airway General Information Procedure Start Time/Medication Administration: 05/11/2025 1:38 PM Procedure End Time: 05/11/2025 1:38 PM Patient location during procedure: OR Timeout Performed Pre-procedure: timeout performed Consent Obtained: Yes Patient identity confirmed: arm band and patient Staffing Performed by: ELECTRICAL SOLDERER Indications and Patient Condition Indications for airway management: anesthesia Preoxygenated: yes Patient position: sniffing Method: asleep Final Airway Details Final airway type: endotracheal airway Final Endotracheal Airway: ETT Successful intubation technique: direct laryngoscopy Endotracheal tube insertion site: oral Blade: Claudette Blade size: #3 ETT size (mm): 7.0 Placement verified by: capnometry Cormack-Lehane Classification: grade I - full view of glottis Number of attempts at approach: 1 Comments Easy atraumatic x 1 SIGNATURE: Michelle Anand APRN.CRNA PATIENT NAME: Lili Jimenez DATE: May 11, 2025 TIME: 1:50 PM CSN: [id number] [facility] 04-27-2025 History and physical note Images from the original note were not included. [facility] Pre[facility]Anesthesia Consultation [facility] HISTORY AND PHYSICAL EXAMINATION SERVICE DATE: 04/27/2025 SERVICE TIME: 12:39 PM Recording using [employer] software for draft documentation of the visit was discussed with the patient/authorized aircraft sales representative; all questions welcomed and answered. Patient/authorized aircraft sales representative agreed to proceed. PRIMARY CARE PHYSICIAN: No primary care provider on file. Assessment Patient has the following medical conditions which may affect amy-operative course: 1. Rheumatoid arthritis, involving unspecified site, unspecified whether rheumatoid factor present (HCC) (M06.9) - Managed by rheumatology; currently on Plaquenil. - Considering stronger medication that is contraindicated in , hence the elective laparoscopic salpingectomy scheduled with Dr. Bah on May 11. 2. Raynaud's disease without gangrene (I73.00) - Symptoms primarily triggered by temperature changes. - Controlled with Norvasc; no complications reported. 3. Gastro-esophageal reflux disease without esophagitis (K21.9) - Well-controlled with Protonix and dietary modifications. ANESTHESIA FINDINGS: Intubation History: No history of difficult intubation. No abnormal airway history Significant Anesthesia Considerations: none Airway History: No history of difficult airway No abnormal airway history Eldridge Activity Status Index: METS: Walk indoors, such as around the house (1.75 METs) Do light work around the house, such as dusting or washing dishes (2.70 METs) Take care of self; that is eating, dressing, bathing, using the toilet (2.75 METs) Walk a block or two on level ground (2.75 METs) Do moderate work around the house, such as vacuuming, sweeping floors, or carrying in groceries (3.50 METs) Do yardwork, such as raking leaves, weeding, or pushing a power mower (4.50 METs) Climb a flight of stairs or walk up a hill (5.50 METs) DASI Score: 23.45 Patient denies any chest pain or undue shortness of breath with the above physical activity. Clinical Frailty Scale: 3. Well, with treated comorbid disease STOP-Bang Score: Snores loudly Denies feeling tired, fatigued, or sleepy during the daytime Has not been observed to stop breathing or choking/gasping during sleep Denies having high blood pressure BMI less than or equal to 35 kg/m^2 Patient 50 years old or younger Does not have a large neck Non-male patient STOP-Bang Score: 1 I - PHYSICAL EVALUATION AIRWAY Patient intubated: No. Tracheostomy tube not present Mallampati: I. TM distance: >3 FB. Neck ROM: full ROM without neurological symptoms. Mouth opening: adequate. Short neck: no. Thick neck: no DENTAL Dental findings: teeth intact. II - ANESTHESIA PLAN Beta Asya Monitoring Plan Post Procedure Analgesic Plan Prepared for Surgery: optimally prepared for surgery. CONSULTS: Patient does not require consults for optimization at this time Planned Anesthetic: anesthesia choice The Following Tests/Procedures Have Been Initiated: No orders of the defined types were placed in this encounter. REASON FOR VISIT: Lili Jimenez is a 44 year old female who is scheduled for Procedure(s): LAPAROSCOPIC SALPINGECTOMY (Left) at the request of Dr. Cami Bah for consultation. My final recommendation will be communicated back to the requesting physician by way of shared medical record or letter. Subjective The patient has the following: COVID-19 Immunization Status Current Care Gaps Covid-19 Vaccine () Overdue since 06/20/2024 08/10/2021 Imm Admin: COVID-19 vaccine ([employer]) CHIEF COMPLAINT: Pre-op HPI: Lili Jimenez is a 44-year-old female with a history of Raynaud's phenomenon, rheumatoid arthritis, and GERD, presenting for preoperative evaluation prior to a laparoscopic salpingectomy scheduled for 05/11/2023. Lili is scheduled for a laparoscopic salpingectomy on 05/11/[address] Bah at [place]. This is an elective sterilization procedure. She has a history of a right salpingectomy in 2019 due to an ectopic , which was an emergency surgery. She also had a septal repair in 2014. She denies any current abdominal pain or abnormal vaginal bleeding. REVIEW OF SYSTEMS: General: No weight loss, malaise or fevers. Neurological: Negative for: dementia, headaches, impaired sensorium, peripheral neuropathy, seizures, TIA and strokes. Respiratory: Negative for: asthma, bronchitis, COPD, current cough, bronchodilator used daily for the last 3 months, dyspnea, home oxygen, orthopnea, pneumonia within 6 weeks, tobacco use, URI < 2 weeks and obstructive sleep apnea. Cardiovascular: +Raynauds. Denies dizziness or syncope. Negative for: abdominal aortic aneurysm, AICD/PPM, angina, arrhythmia, CAD, chest pain, CHF, congenital heart defect, DVT/PE, hyperlipidemia, hypertension, recent OK, murmur/valvular heart disease, PVD, open heart surgery and valve surgery. GI: Positive for: GERD Negative for: abdominal pain, GI bleed <30 days, hepatitis, liver disease, nausea, vomiting and ETOH >2 drinks/day. : No history of kidney disease Negative for: on dialysis, dysuria, frequent urination, hematuria and urinary tract infection. OYSTER WASHER: See HPI. Endocrine: Negative for: diabetes mellitus, hyperthyroidism and hypothyroidism. Hematology: No history of bleeding or clotting disorder. Patient is not taking anti-coagulation or platelet medications. No history of hematological symptoms or problems. Oncology: No history of CA metastasis, chemo within 30 days, or radiotherapy within 90 days. No history of oncological symptoms or problems. Psych: No history of psychiatric symptoms or problems. Musculoskeletal: Positive for: rheumatoid arthritis. Patient is using DMARDS for RA. Skin: Negative for lesions, rash and itching. Implanted Devices: No implanted devices. PAST MEDICAL HISTORY Diagnosis Date Family history of breast cancer in mother dx afge ~55 Gastroesophageal reflux disease without esophagitis History of ectopic 04/25/2019 right s/p LS right salpingectomy Hypoglycemia, unspecified Raynaud's phenomenon uses Bystolic to manage Rheumatoid arthritis (HCC) Rosacea PAST SURGICAL HISTORY Procedure Laterality Date LAPAROSCOPY W/REMOVAL ADNEXAL STRUCTURES Right 04/25/2019 tube removed due to ectopic NASAL SURGERY PROCEDURE 09/2015 septal repair FAMILY HISTORY Problem Relation Age of Onset Hypertension Mother Kidney Disease Mother Breast Cancer Mother 55 Hypertension Father Kidney Disease Father Coronary Artery Disease Maternal Grandmother Ischemic Heart Disease Maternal Grandfather Cancer Maternal Grandfather Carcinoid Stroke Paternal Grandmother Aneurysm Paternal Grandfather brain Breast Cancer Paternal Aunt Stroke Other Heart Other Breast Cancer Other mult M/P Gr aunt Cervical Cancer No Family History Ovarian cancer No Family History Uterine Cancer No Family History Colon Cancer No Family History Pancreatic Cancer No Family History Prostate Cancer No Family History Anesthesia Problems No Family History Social History Tobacco Use Smoking status: Never Smokeless tobacco: Never Vaping Use Vaping status: Never Used Substance Use Topics Alcohol use: No Drug use: No Prior to Admission medications as of 04/27/25 1242 Medication Sig Last Dose Taking amLODIPine (NORVASC) 5 mg tablet Take 10 mg by mouth once daily. Yes hydrOXYchloroQUINE (PLAQUENIL) 200 mg tablet Take 300 mg by mouth once daily. Yes loratadine (CLARITIN) 10 mg tablet Take 10 mg by mouth. Yes pantoprazole DR (PROTONIX) 40 mg tablet Take 40 mg by mouth once daily. Yes DULoxetine (CYMBALTA) 30 mg capsule Take 30 mg by mouth daily at bedtime. Patient not taking: Reported on 04/27/2025 No medication comments found. ALLERGIES Allergen Reactions Blue Dye Diarrhea, Vomiting Imitrex [Sumatripta* Intolerance Objective PHYSICAL EXAM: General: alert and oriented and healthy appearance. Pertinent negatives noted - not distressed. Skin: normal color, no rash or lesions. HEENT: EOM intact, pupils equal round and pupils reactive to light. Pertinent negatives noted - no carotid bruit. Cardiovascular: regular rate and rhythm, normal S1 and S2, no rub, murmurs, or gallop. Respiratory: normal breath sounds, no wheezes or crackles. No chest wall deformity or tenderness. Abdomen: bowel sounds present and soft. Pertinent negatives noted - not tender. Extremities: no deformity, no edema or tenderness, no joint swelling or clubbing. Neurological: normal cognition and motor skills. Gait normal. No weakness or sensory deficit. PAIN ASSESSMENT: VITALS: BP 124/85 Pulse 79 Temp (Src) 97.2 (Temporal) Resp 16 Ht 5' 1 (1.55m) Wt 145 lb 4.5 oz (65.9kg) SpO2 100% LMP 04/05/2025 BMI 27.47 kg/(m^2). Diagnostic tests reviewed for today's visit: Lab Value Units Date High Low HB No results within date range. HCT No results within date range. WBC No results within date range. PLT No results within date range. NA No results within date range. K No results within date range. GLUC No results within date range. BUN No results within date range. CREAT No results within date range. PTSEC No results within date range. INR No results within date range. APTT No results within date range. ALT No results within date range. AST No results within date range. TBILI No results within date range. TSH No results within date range. Lab Value Units Date High Low HCGQT No results within date range. UHCG No results within date range. HCG, BODY* No results within date range. Lab Value Units Date High Low ABORHD No results within date range. ABSCREEN No results within date range. No results found for: HBA1C No results found for this or any previous visit (from the past 8760 hours). No results found for this or any previous visit (from the past 15125 hours). Instructions Given to Patient: Instructions located in the after visit summary. Patient given verbal and written preop instructions and voices comprehension and compliance. SIGNATURE: Taryn Loya PA-C PATIENT NAME: Lili Jimenez DATE: April 27, 2025 TIME: 12:39 PM PAGER/CONTACT #: [facility] 04-27-2025 History and physical note Images from the original note were not included. [facility] HISTORY AND PHYSICAL EXAMINATION SERVICE DATE: 04/27/2025 SERVICE TIME: 12:39 PM Recording using [employer] software for draft documentation of the visit was discussed with the patient/authorized aircraft sales representative; all questions welcomed and answered. Patient/authorized aircraft sales representative agreed to proceed. PRIMARY CARE PHYSICIAN: No primary care provider on file. Assessment Patient has the following medical conditions which may affect amy-operative course: 1. Rheumatoid arthritis, involving unspecified site, unspecified whether rheumatoid factor present (HCC) (M06.9) - Managed by rheumatology; currently on Plaquenil. - Considering stronger medication that is contraindicated in , hence the elective laparoscopic salpingectomy scheduled with Dr. Bah on May 11. 2. Raynaud's disease without gangrene (I73.00) - Symptoms primarily triggered by temperature changes. - Controlled with Norvasc; no complications reported. 3. Gastro-esophageal reflux disease without esophagitis (K21.9) - Well-controlled with Protonix and dietary modifications. ANESTHESIA FINDINGS: Intubation History: No history of difficult intubation. No abnormal airway history Significant Anesthesia Considerations: none Airway History: No history of difficult airway No abnormal airway history Eldridge Activity Status Index: METS: Walk indoors, such as around the house (1.75 METs) Do light work around the house, such as dusting or washing dishes (2.70 METs) Take care of self; that is eating, dressing, bathing, using the toilet (2.75 METs) Walk a block or two on level ground (2.75 METs) Do moderate work around the house, such as vacuuming, sweeping floors, or carrying in groceries (3.50 METs) Do yardwork, such as raking leaves, weeding, or pushing a power mower (4.50 METs) Climb a flight of stairs or walk up a hill (5.50 METs) DASI Score: 23.45 Patient denies any chest pain or undue shortness of breath with the above physical activity. Clinical Frailty Scale: 3. Well, with treated comorbid disease STOP-Bang Score: Snores loudly Denies feeling tired, fatigued, or sleepy during the daytime Has not been observed to stop breathing or choking/gasping during sleep Denies having high blood pressure BMI less than or equal to 35 kg/m^2 Patient 50 years old or younger Does not have a large neck Non-male patient STOP-Bang Score: 1 I - PHYSICAL EVALUATION AIRWAY Patient intubated: No. Tracheostomy tube not present Mallampati: I. TM distance: >3 FB. Neck ROM: full ROM without neurological symptoms. Mouth opening: adequate. Short neck: no. Thick neck: no DENTAL Dental findings: teeth intact. II - ANESTHESIA PLAN Beta Asya Monitoring Plan Post Procedure Analgesic Plan Prepared for Surgery: optimally prepared for surgery. CONSULTS: Patient does not require consults for optimization at this time Planned Anesthetic: anesthesia choice The Following Tests/Procedures Have Been Initiated: No orders of the defined types were placed in this encounter. REASON FOR VISIT: Lili Jimenez is a 44 year old female who is scheduled for Procedure(s): LAPAROSCOPIC SALPINGECTOMY (Left) at the request of Dr. Cami Bah for consultation. My final recommendation will be communicated back to the requesting physician by way of shared medical record or letter. Subjective The patient has the following: COVID-19 Immunization Status Current Care Gaps Covid-19 Vaccine ( season) Overdue since 06/20/2024 08/10/2021 Imm Admin: COVID-19 vaccine ([employer]) CHIEF COMPLAINT: Pre-op HPI: Lili Jimenez is a 44-year-old female with a history of Raynaud's phenomenon, rheumatoid arthritis, and GERD, presenting for preoperative evaluation prior to a laparoscopic salpingectomy scheduled for 05/11/2023. Lili is scheduled for a laparoscopic salpingectomy on 05/11/[address] Bah at [place]. This is an elective sterilization procedure. She has a history of a right salpingectomy in 2019 due to an ectopic , which was an emergency surgery. She also had a septal repair in 2014. She denies any current abdominal pain or abnormal vaginal bleeding. REVIEW OF SYSTEMS: General: No weight loss, malaise or fevers. Neurological: Negative for: dementia, headaches, impaired sensorium, peripheral neuropathy, seizures, TIA and strokes. Respiratory: Negative for: asthma, bronchitis, COPD, current cough, bronchodilator used daily for the last 3 months, dyspnea, home oxygen, orthopnea, pneumonia within 6 weeks, tobacco use, URI < 2 weeks and obstructive sleep apnea. Cardiovascular: +Raynauds. Denies dizziness or syncope. Negative for: abdominal aortic aneurysm, AICD/PPM, angina, arrhythmia, CAD, chest pain, CHF, congenital heart defect, DVT/PE, hyperlipidemia, hypertension, recent OK, murmur/valvular heart disease, PVD, open heart surgery and valve surgery. GI: Positive for: GERD Negative for: abdominal pain, GI bleed <30 days, hepatitis, liver disease, nausea, vomiting and ETOH >2 drinks/day. : No history of kidney disease Negative for: on dialysis, dysuria, frequent urination, hematuria and urinary tract infection. OYSTER WASHER: See HPI. Endocrine: Negative for: diabetes mellitus, hyperthyroidism and hypothyroidism. Hematology: No history of bleeding or clotting disorder. Patient is not taking anti-coagulation or platelet medications. No history of hematological symptoms or problems. Oncology: No history of CA metastasis, chemo within 30 days, or radiotherapy within 90 days. No history of oncological symptoms or problems. Psych: No history of psychiatric symptoms or problems. Musculoskeletal: Positive for: rheumatoid arthritis. Patient is using DMARDS for RA. Skin: Negative for lesions, rash and itching. Implanted Devices: No implanted devices. PAST MEDICAL HISTORY Diagnosis Date Family history of breast cancer in mother dx afge ~55 Gastroesophageal reflux disease without esophagitis History of ectopic 04/25/2019 right s/p LS right salpingectomy Hypoglycemia, unspecified Raynaud's phenomenon uses Bystolic to manage Rheumatoid arthritis (HCC) Rosacea PAST SURGICAL HISTORY Procedure Laterality Date LAPAROSCOPY W/REMOVAL ADNEXAL STRUCTURES Right 04/25/2019 tube removed due to ectopic NASAL SURGERY PROCEDURE 09/2015 septal repair FAMILY HISTORY Problem Relation Age of Onset Hypertension Mother Kidney Disease Mother Breast Cancer Mother 55 Hypertension Father Kidney Disease Father Coronary Artery Disease Maternal Grandmother Ischemic Heart Disease Maternal Grandfather Cancer Maternal Grandfather Carcinoid Stroke Paternal Grandmother Aneurysm Paternal Grandfather brain Breast Cancer Paternal Aunt Stroke Other Heart Other Breast Cancer Other mult M/P Gr aunt Cervical Cancer No Family History Ovarian cancer No Family History Uterine Cancer No Family History Colon Cancer No Family History Pancreatic Cancer No Family History Prostate Cancer No Family History Anesthesia Problems No Family History Social History Tobacco Use Smoking status: Never Smokeless tobacco: Never Vaping Use Vaping status: Never Used Substance Use Topics Alcohol use: No Drug use: No Prior to Admission medications as of 04/27/25 1242 Medication Sig Last Dose Taking amLODIPine (NORVASC) 5 mg tablet Take 10 mg by mouth once daily. Yes hydrOXYchloroQUINE (PLAQUENIL) 200 mg tablet Take 300 mg by mouth once daily. Yes loratadine (CLARITIN) 10 mg tablet Take 10 mg by mouth. Yes pantoprazole DR (PROTONIX) 40 mg tablet Take 40 mg by mouth once daily. Yes DULoxetine (CYMBALTA) 30 mg capsule Take 30 mg by mouth daily at bedtime. Patient not taking: Reported on 04/27/2025 No medication comments found. ALLERGIES Allergen Reactions Blue Dye Diarrhea, Vomiting Imitrex [Sumatripta* Intolerance Objective PHYSICAL EXAM: General: alert and oriented and healthy appearance. Pertinent negatives noted - not distressed. Skin: normal color, no rash or lesions. HEENT: EOM intact, pupils equal round and pupils reactive to light. Pertinent negatives noted - no carotid bruit. Cardiovascular: regular rate and rhythm, normal S1 and S2, no rub, murmurs, or gallop. Respiratory: normal breath sounds, no wheezes or crackles. No chest wall deformity or tenderness. Abdomen: bowel sounds present and soft. Pertinent negatives noted - not tender. Extremities: no deformity, no edema or tenderness, no joint swelling or clubbing. Neurological: normal cognition and motor skills. Gait normal. No weakness or sensory deficit. PAIN ASSESSMENT: VITALS: BP 124/85 Pulse 79 Temp (Src) 97.2 (Temporal) Resp 16 Ht 5' 1 (1.55m) Wt 145 lb 4.5 oz (65.9kg) SpO2 100% LMP 04/05/2025 BMI 27.47 kg/(m^2). Diagnostic tests reviewed for today's visit: Lab Value Units Date High Low HB No results within date range. HCT No results within date range. WBC No results within date range. PLT No results within date range. NA No results within date range. K No results within date range. GLUC No results within date range. BUN No results within date range. CREAT No results within date range. PTSEC No results within date range. INR No results within date range. APTT No results within date range. ALT No results within date range. AST No results within date range. TBILI No results within date range. TSH No results within date range. Lab Value Units Date High Low HCGQT No results within date range. UHCG No results within date range. HCG, BODY* No results within date range. Lab Value Units Date High Low ABORHD No results within date range. ABSCREEN No results within date range. No results found for: HBA1C No results found for this or any previous visit (from the past 8760 hours). No results found for this or any previous visit (from the past 23274 hours). Instructions Given to Patient: Instructions located in the after visit summary. Patient given verbal and written preop instructions and voices comprehension and compliance. SIGNATURE: Taryn Loya PA-C PATIENT NAME: Lili Jimenez DATE: April 27, 2025 TIME: 12:39 PM PAGER/CONTACT #: documented in this encounter [facility] 04-27-2025 Instructions Taryn Loya PA-C - 04/27/2025 12:39 PM EDT Images from the original note were not included. [facility] PATIENT PREOPERATIVE INSTRUCTIONS Cami Bah* has scheduled you for your procedure at this surgery center: [facility]: [phone] -- [address] [address]. Please read below carefully for your personalized instructions. Arrival Time for Surgery: - The Surgery Center or hospital where you are having surgery will call the afternoon before surgery (or Friday for Friday surgery) with a scheduled arrival time. - If you have not heard by 4 pm, please contact the surgery center above. Dietary Restrictions: - No solid food after midnight. - You may have 12 ounces of clear liquids (water, clear juices such as apple juice or gatorade, carbonated beverages, clear tea, black coffee, jello) until 2 hours before scheduled arrival at facility. - Do not drink any alcohol after midnight the night before your surgery. - no milk/creamer or other additives like honey - no pulp juices Medications: Unless instructed differently below, stay on all of your medications until your surgery. If you start any new medications after today's visit, please contact your surgeon. Pre-Surgery Med Instructions Medication Instructions amLODIPine (NORVASC) 5 mg tablet If you normally take this medication in the morning, take the morning of surgery. hydrOXYchloroQUINE (PLAQUENIL) 200 mg tablet If you normally take this medication in the morning, take the morning of surgery. loratadine (CLARITIN) 10 mg tablet If you normally take this medication in the morning, take the morning of surgery. pantoprazole DR (PROTONIX) 40 mg tablet If you normally take this medication in the morning, take the morning of surgery. If you are currently using a [id number]-qqf-fhfn injectable or oral medication for diabetes or weight loss such as Dulaglutide (Trulicity), Exenatide (Byetta, Bydureon), Liraglutide (Victoza, Saxenda), Semaglutide (Ozempic, Wegovy, Rybelsus), or Tirzepatide (Mounjaro), the medicine should be stopped at least 7 days before surgery. These medicines can cause food to remain in your stomach for a very long time and increase the risks from surgery and anesthesia. Not stopping the medication for a long enough time may result in your surgery being rescheduled. If you start any new medications after today's visit, please contact the surgeon's office. Blood Thinning Medications: - Stop NSAIDS (Ibuprofen, Advil, Aleve, Motrin, Celebrex, Mobic, etc.) 7 days before surgery, as directed by your surgeon. - Stop Aspirin 7 days before surgery, as directed by your surgeon. - Stop herbal supplements 7 days before surgery. - You may take Tylenol (Acetaminophen) or any of your pain medications that do not contain aspirin or NSAIDS as needed. Important Reminders: - If you use CPAP/BIPAP, bring the machine with you to the surgery center. - If you are prescribed inhalers for breathing, continue using them. -Please be sure to brush your teeth and you can use mouth wash or rinse your mouth if dry. - Candy, mints, and tobacco products are NOT permitted the morning of surgery. - Hearing aids, dentures and glasses may be worn the morning of surgery. - If you have dentures or partials, please have a case to place them in or leave at home day of surgery. - NO jewelry, body piercings, makeup, hairpins or contacts are to be worn the day of surgery. If you develop symptoms such as a fever, cold, or flu, or have other changes to your health within TWO DAYS of scheduled surgery or the morning of surgery, please contact the surgery center above. Personal Belongings: -Please have photo ID and insurance cards. -If you do not have a copy of advance directives on file with us, please bring a copy with you on the day of surgery. - Leave ALL valuables and money at home or with family members. For Outpatient Procedures: - YOU MUST HAVE A RESPONSIBLE SPINNING LATHE OPERATOR TAKE YOU HOME. A SALVAGE DIVER OR BLENDING MACHINE FEEDER CANNOT BE MADE A RESPONSIBLE SPINNING LATHE OPERATOR. - We recommend that a responsible person stays with you overnight to take care of you. - You cannot stay in a hotel alone after outpatient surgery. You will not be permitted to have your surgery, if you do not have someone to take care of you. Please be aware that emergency situations arise, which may delay or change your surgical time. If this happens, we will notify you as soon as possible and regret any inconvenience. If you already have an Advance Directive, please fax a copy to [phone] or email to for it to be added to your chart. If you do not have an Advance Directive, you can find the appropriate form and more information at [email or web address]. We recommend that you complete the Advance Directive form found on the website and bring it with you the day of your surgery. It can be witnessed and scanned into your chart that day. Taryn Loya PA-C documented in this encounter [facility] 02-10-2025 Note HNO ID: [id number] Author: CAMI BAH MD Service: ? Author Type: Physician Type: Progress Notes Filed: 02/10/2025 13:45 Note Text: Patient presents to discuss permanent sterilization. She is planning to start a medical therapy which is contraindicated in . She would like permanent sterilization. Reviewed: PMHX PSHx FHx Meds Allergies Extensive discussion of minimally invasive sterilization approaches including vaginal and abdominal laparoscopic approaches. Discussed risks of bleeding, infection, damage to surrounding organs. Bladder injury, bowel injury, ureteral injury, and delayed diagnosis of bladder, bowel, and ureteral injury discussed. Post operative expectations and recovery discussed. A/P: desires permanent sterilization - laparoscopic left salpingectomy (right already removed) [facility] 01-06-2025 Instructions Rosana Roa MD - 01/06/2025 9:59 AM EDT ACOG Screening Guidelines The following health screening schedule is recommended by the [employer] (ACOG). Some of these tests may be ordered or performed by your primary care doctor. Pap test screening The pap test looks at cells on the cervix (the opening from the vagina to the uterus) to look for cancer or pre-cancerous changes. These changes are caused by the human papillomavirus (HPV). Studies estimate that half of all women will test positive for this virus within 3 years of starting sexual activity. For young women with a normal immune system, 90% of HPV infections will resolve within 2 years. There is a vaccine available against some forms of HPV. This is recommended for girls and women age 9-45. For ages 9-14, two injections are given at 0 and 6 months. For ages 15-45, three injections are given at 0,2 and 6 months. Because this vaccine does not protect against all HPV types which can cause cervical cancer, women who received the vaccine still need pap tests. Pap smear screening should be started at age 21. The pap test should be done every 3 years from age 21-29. From age 30-65, pap smears can be done every 5 years if HPV test is negative or every 3 years if HPV testing is not done. For women over the age of 65, ACOG recommends against screening women who have had adequate prior screening and are not otherwise at high risk for cervical cancer. Women who have had a hysterectomy also do not need routine pap smear screening unless the pap smear was done for a cervical cancer or moderate to severe dysplasia. Breast cancer screening Mammogram should be performed every 1-2 years starting at age 40 and every year starting at age 50. Screening may be started earlier depending on family history. Cholesterol screening Lipid panel (cholesterol test) should be checked every 5 years starting at age 45. Diabetes screening Fasting glucose (blood sugar) test should be performed every 3 years starting at age 45. Colorectal cancer screening Starting at age 45, women should have a screening colonoscopy at least every 10 years. Screening may be started earlier depending on family history. Thyroid screening Thyroid function test (TSH) should be checked every 5 years starting at age 50. Bone mineral density screening All postmenopausal women age 65 and over and postmenopausal women with risk factors for osteoporosis should have a bone mineral density test performed. Risk factors include race, family history of osteoporosis, personal history of fractures, poor nutrition, smoking, heavy alcohol use, early menopause, low calcium intake and low body weight. Certain medical conditions and long-term use of some medications may also increase risk. Calcium and Vitamin D Supplementation (from the National Institutes of Health Office of Dietary Supplements 2011) Calcium is required by the body for blood vessel, muscle, hormone and nerve functioning. Most of the body's calcium is stored in the bones and teeth where it supports structure and function. Bone is continuously broken down and reformed. When bone breakdown exceeds formation, especially in postmenopausal women, bone loss can increase the risk of osteoporosis and fractures. In addition to low calcium intake, women who smoke, have a family history of osteoporosis, are thin, or , or who take certain medications such as cancer chemotherapy, seizure mediations and steroids are at increased risk of osteoporosis. The calcium requirements in women change with age. The National Institutes of Health (NIH) recommends: 1000mg elemental calcium for premenopausal women age 19-50 1200mg elemental calcium for postmenopausal women and all women over 50 Milk, yogurt, and cheese are rich natural sources of calcium and are the major food contributors in the [place]. For example, 8oz of milk (whole, lowfat or skim) contains about 300mg calcium, 8oz of yogurt contains 415mg. Nondairy sources include salmon and sardines and vegetables, such as [place] cabbage, kale, and broccoli. Foods fortified with calcium include many fruit juices, tofu and cereals. For more food calcium content information, visit http://ods.od.nih.gov/factsheet s/calcium. Calcium supplements come in several different forms. Remember that the recommendations are for millgrams (mg) of elemental calcium which may be less than the total weight of the supplement. The amount of elemental calcium is required to be printed on the label. Calcium carbonate is the least expensive form. It must be taken on a full stomach to be properly absorbed. Some patients may experience gas or constipation. Calcium phosphate and calcium citrate may be taken either with or without food and tend to have less side effects but are generally more expensive. Because of its ability to neutralize stomach acid, calcium carbonate is found in some cgsh-eue-rppqbwk antacid products, such as Tums and Rolaids . Depending on its strength, each chewable pill or softchew provides 200 to 400 mg of elemental calcium. The percentage of calcium absorbed depends on the total amount of elemental calcium consumed at one time. Absorption is highest in doses <500mg. So a woman who takes 1,000mg/day of calcium from supplements should split the dose and take 500mg at two separate times during the day. Too much calcium can cause kidney stones, constipation, difficulty absorbing other nutrients and calcium buildup in blood vessels. Women under 50 should not exceed 2500mg/day (2000mg/day for women over 50) of calcium from food and supplements. Excessive alcohol and caffeine intake can inhibit absorption of calcium. Calcium can reduce the absorption of some medications if taken at the same time of day (bisphosphonates, thyroid medication, Phenytoin and other seizure medications, some antibiotics and iron supplements). Vitamin D promotes calcium absorption in the gut and maintains adequate blood levels of calcium and phosphate for normal bone growth and bone remodeling. Vitamin D also helps regulate cell growth as well as nerve, muscle and immune system function. Vitamin D is produced in the skin as a result of ultraviolet sunlight rays and must be altered in the liver and kidney to become its active form. Recommended intake according to the National Institutes of Health is 600 International Units (IU) for girls and women ages 1-70 and 800 IU for women over 70. Very few foods in nature contain vitamin D. The flesh of fatty fish (such as salmon, tuna, and mackerel) and fish liver oils are among the best sources. Small amounts of vitamin D are found in beef liver, cheese, mushrooms and egg yolks. Most people meet at least some of their vitamin D needs through exposure to sunlight. Season, time of day, length of day, cloud cover, smog, skin melanin content, and sunscreen are among the factors that affect UV radiation exposure and vitamin D synthesis. Despite the importance of the sun for vitamin D synthesis, it is prudent to limit exposure of skin to sunlight and avoid tanning beds. UV radiation is a carcinogen responsible for most of the estimated 1.5 million skin cancers that occur annually in the [place]. Lifetime cumulative UV damage to skin is also responsible for some age-associated dryness and other cosmetic changes. In supplements and fortified foods, vitamin D is available in two forms, D2 (ergocalciferol) and D3 (cholecalciferol). The two are equivalent at normal supplement doses. For women who require high supplement doses because of vitamin D deficiency, D3 may work better to raise blood levels. Some medications can prevent proper absorption of Vitamin D. These include laxatives, corticosteroids like prednisone, the seizure drugs phenobarbital and phenytoin, the weight-loss drug orlistat ( Xenical and AlliTM) and the cholesterol-lowering drug cholestyramine (Questran , LoCholest , and Prevalite ). Talk to your doctor about adjusting your recommended daily vitamin D dosage if you take these medications. You should not exceed 4000 mg of vitamin D supplementation daily unless specifically prescribed by your doctor. Gardasil Gardasil is a vaccine to protect against Human Papillomavirus (HPV) types 6, 11, 16, 18, 31,33,45, 52, 58. These viruses cause cancer and precancerous lesions on the cervix (opening between vagina and uterus), in the vagina and on the vulva (skin around the outside of the vagina) as well as genital warts. The vaccine cannot cause these diseases and cannot treat them if already present. Gardasil works best if given before contact with HPV. Most people are exposed to HPV soon after starting sexual activity. The vaccine is recommended between the ages of 9 and 45. Gardasil does not protect against all strains of HPV. Women who receive the vaccine still need to have regular pelvic exams and cervical cancer screening with the pap smear. You should ask your doctor if Gardasil is right for you if you have a weakened immune system, a bleeding disorder, plan to become soon or have a current illness causing fever. Gardasil is not recommended for women. You should be sure your doctor is aware of any allergies you have and all medications and herbal supplements you take. Gardasil is given to those ages 9-14 in 2 doses at 0 and 8 months. In ages 15-45, three injections are given at 0,2,6 months. Common side effects include pain, redness, itching and swelling at the injection site, nausea, fever, dizziness and fainting. Rare but potentially serious reactions have been reported. These include allergic reaction, swollen glands, joint and muscle pain, weakness and Guillain-Fallston syndrome. documented in this encounter [facility] 01-06-2025 Note HNO ID: [id number] Author: ROSANA ROA MD Service: ? Author Type: Physician Type: Progress Notes Filed: 01/06/2025 12:58 Note Text: Lili is a 44 year old who presents for an annual gynecologic exam without complaints. Thorough past history obtained/updated/reviewed with today's visit. Pt states changes to her past history include: Dx w/RA AND Raynaud's, on Rigging Man offered: Patient declines. The patient consented to the use of [employer] software for draft documentation of the visit consistent with [facility]?s Notice of Privacy Practices. Still get period: Yes Bleeding amount bothersome: No Bleeding between periods: No Period symptoms: Acne; Breast tenderness; Cramps (Tx'd CD1 w/Tylenol) Time with current partner: 27 years Number of lifetime partners: 1 Contraception frequency: Never-> states she AND have discussed AND thinking may be fine with not having kids HPV vaccine: No HPV:negative Last pap smear: 07/2020 NILM/HPV History of abnormal pap: No, all prior PAP smears have been normal Bothersome pelvic pain: No Last mammogram: 2023normal Prior history of abnormal mammogram yes, follow up views benign. Sexually active: Yes History of STDS: None Patient concerns for STD exposure: No. Family hx of chief sales officer malignancy: Breast cancer- mom, Pat aunt AND mult Mat/Pat Gr aunts OB History Gravida2 Para0 Term0 Preterm0 AB2 Living0 SAB1 IAB0 Ectopic1 Multiple0 Live Births0 Netting Weaver History LMP: 12/23/2024, Having periods Age at Menarche: 15 Age at First : 37 Age at Menopause: Netting Weaver History Comments: Sexual Activity: Yes; Male Contraception: No contraception data on record Menstrual Tracking History Flowsheet Row Office Visit from 01/06/2025 in Obstetrics/Gynecology Period Cycle (Days) 27 Period Duration (Days) 4 Menstrual Flow Moderate PAST MEDICAL HISTORY Diagnosis Date Gastroesophageal reflux disease without esophagitis History of ectopic 04/25/2019 right s/p LS right salpingectomy Hypoglycemia, unspecified Raynaud's phenomenon Rheumatoid arthritis (HCC) Rosacea PAST SURGICAL HISTORY Procedure Laterality Date LAPAROSCOPY W/REMOVAL ADNEXAL STRUCTURES Right 04/25/2019 tube removed due to ectopic NASAL SURGERY PROCEDURE 09/2015 septal repair FAMILY HISTORY Problem Relation Age of Onset Hypertension Mother Kidney Disease Mother Breast Cancer Mother 55 Hypertension Father Kidney Disease Father Coronary Artery Disease Maternal Grandmother Ischemic Heart Disease Maternal Grandfather Cancer Maternal Grandfather Carcinoid Stroke Paternal Grandmother Aneurysm Paternal Grandfather brain Breast Cancer Paternal Aunt Stroke Other Heart Other Breast Cancer Other mult M/P Gr aunt Cervical Cancer No Family History Ovarian cancer No Family History Uterine Cancer No Family History Colon Cancer No Family History Pancreatic Cancer No Family History Prostate Cancer No Family History SOCIAL HISTORY Social History Tobacco Use Smoking status: Never Smokeless tobacco: Never Vaping Use Vaping status: Never Used Substance Use Topics Alcohol use: No Drug use: No REVIEW OF SYSTEMS Abdomen: No abdominal pain, nausea, vomiting, diarrhea, or constipation. Bladder: No dysuria, gross hematuria, urinary frequency, urinary urgency, or incontinence. Breast: No breast lumps, nipple d/c, overlying skin changes, redness or skin retraction and +/-SBE normal. Allergies and current medication updated:Yes SENSITIVE EXAM: The sensitive examination was discussed with the Patient or Patient's Authorized Windows Application Administrator. As applicable, any other physician, advance practice provider, medical student, or other health professional student that will be observing or involved in the sensitive examination for educational or training purposes was discussed with the Patient or Authorized Windows Application Administrator. The Patient or Authorized Windows Application Administrator has agreed to proceed with the sensitive examination. (Sensitive examination includes inspection and/or palpation of the breasts, pelvis, prostate and anorectal regions). EXAM: BP 122/68 Resp 18 Wt 143 lb 4.8 oz (65.0kg) LMP 12/23/2024 GENERAL: pleasant, female in no apparent distress HEENT: Normocephalic, atraumatic, mucus membranes moist, and no lesions NECK: Supple, full range of motion, no adenopathy, and thyroid normal DERMATOLOGY: Normal, without lesions, non-icteric, and non-hirsute BREAST: soft, non-tender, symmetric, no dominant mass, normal nipple-areolar complex, no lymphadenopathy, and no nipple discharge CHEST: Clear to auscultation, Normal inspiratory effort, and Regular rate and rhythm ABDOMEN: soft, non-tender, and no masses PELVIC: external genitalia normal, normal Bartholin's glands, urethra, [place]'s glands, no vulvar lesions, no cervical lesions, good vaginal support, physiologic discharge present, normal appearin (more content not included)... [facility] 01-06-2025 History of Presen t illness Narrative Liil is a 44 year old who presents for an annual gynecologic exam without complaints. Thorough past history obtained/updated/reviewed with today's visit. Pt states changes to her past history include: Dx w/RA & Raynaud's, on Rigging Man offered: Patient declines. The patient consented to the use of ambient [employer] software for draft documentation of the visit consistent with [facility] s Notice of Privacy Practices. Still get period: Yes Bleeding amount bothersome: No Bleeding between periods: No Period symptoms: Acne; Breast tenderness; Cramps (Tx'd CD1 w/Tylenol) Time with current partner: 27 years Number of lifetime partners: 1 Contraception frequency: Never-> states she & have discussed & thinking may be fine with not having kids HPV vaccine: No HPV:negative Last pap smear: 07/2020 NILM/HPV History of abnormal pap: No, all prior PAP smears have been normal Bothersome pelvic pain: No Last mammogram: 2023normal Prior history of abnormal mammogram yes, follow up views benign. Sexually active: Yes History of STDS: None Patient concerns for STD exposure: No. Family hx of chief sales officer malignancy: Breast cancer- mom, Pat aunt & mult Mat/Pat Gr aunts OB History Gravida2 Para0 Term0 Preterm0 AB2 Living0 SAB1 IAB0 Ectopic1 Multiple0 Live Births0 Netting Weaver History LMP: 12/23/2024, Having periods Age at Menarche: 15 Age at First : 37 Age at Menopause: Net[place] History Comments: Sexual Activity: Yes; Male Contraception: No contraception data on record Menstrual Tracking History Flowsheet Row Office Visit from 01/06/2025 in Obstetrics/Gynecology Period Cycle (Days) 27 Period Duration (Days) 4 Menstrual Flow Moderate PAST MEDICAL HISTORY Diagnosis Date Gastroesophageal reflux disease without esophagitis History of ectopic 04/25/2019 right s/p LS right salpingectomy Hypoglycemia, unspecified Raynaud's phenomenon Rheumatoid arthritis (HCC) Rosacea PAST SURGICAL HISTORY Procedure Laterality Date LAPAROSCOPY W/REMOVAL ADNEXAL STRUCTURES Right 04/25/2019 tube removed due to ectopic NASAL SURGERY PROCEDURE 09/2015 septal repair FAMILY HISTORY Problem Relation Age of Onset Hypertension Mother Kidney Disease Mother Breast Cancer Mother 55 Hypertension Father Kidney Disease Father Coronary Artery Disease Maternal Grandmother Ischemic Heart Disease Maternal Grandfather Cancer Maternal Grandfather Carcinoid Stroke Paternal Grandmother Aneurysm Paternal Grandfather brain Breast Cancer Paternal Aunt Stroke Other Heart Other Breast Cancer Other mult M/P Gr aunt Cervical Cancer No Family History Ovarian cancer No Family History Uterine Cancer No Family History Colon Cancer No Family History Pancreatic Cancer No Family History Prostate Cancer No Family History SOCIAL HISTORY Social History Tobacco Use Smoking status: Never Smokeless tobacco: Never Vaping Use Vaping status: Never Used Substance Use Topics Alcohol use: No Drug use: No REVIEW OF SYSTEMS Abdomen: No abdominal pain, nausea, vomiting, diarrhea, or constipation. Bladder: No dysuria, gross hematuria, urinary frequency, urinary urgency, or incontinence. Breast: No breast lumps, nipple d/c, overlying skin changes, redness or skin retraction and +/-SBE normal. Allergies and current medication updated:Yes SENSITIVE EXAM: The sensitive examination was discussed with the Patient or Patient's Authorized Windows Application Administrator. As applicable, any other physician, advance practice provider, medical student, or other health professional student that will be observing or involved in the sensitive examination for educational or training purposes was discussed with the Patient or Authorized Windows Application Administrator. The Patient or Authorized Windows Application Administrator has agreed to proceed with the sensitive examination. (Sensitive examination includes inspection and/or palpation of the breasts, pelvis, prostate and anorectal regions). EXAM: BP 122/68 Resp 18 Wt 143 lb 4.8 oz (65.0kg) LMP 12/23/2024 GENERAL: pleasant, female in no apparent distress HEENT: Normocephalic, atraumatic, mucus membranes moist, and no lesions NECK: Supple, full range of motion, no adenopathy, and thyroid normal DERMATOLOGY: Normal, without lesions, non-icteric, and non-hirsute BREAST: soft, non-tender, symmetric, no dominant mass, normal nipple-areolar complex, no lymphadenopathy, and no nipple discharge CHEST: Clear to auscultation, Normal inspiratory effort, and Regular rate and rhythm ABDOMEN: soft, non-tender, and no masses PELVIC: external genitalia normal, normal Bartholin's glands, urethra, [place]'s glands, no vulvar lesions, no cervical lesions, good vaginal support, physiologic discharge present, normal appearing perineal body and perianal region BIMANUAL: uterus normal size, shape and consistency, no adnexal masses, and non-tender RECTOVAGINAL: deferred. NEURO: alert and oriented x3,exam grossly non-focal EXTREMITIES: normal ASSESSMENT/PLAN: 1) Health maintenance: Pap done with HPV. Mammogram up to date (follows w/PCP) Nutrition, exercise and routine health maintenance exams reviewed. Calcium/Vitamin D supplementation information provided. Colon cancer screening: start at age 45 HPV vaccine: discussed, not interested, info provided Reviewed Plaquenil would be OK w/ , Norvasc would not (encouraged to discuss with provider if can be stopped cold turkey- used for Raynaud's, so would not necessarily need a replacement for ) 2) Contraception: none. Contraceptive options reviewed and information provided- encouraged partner vasectomy (can follow up with Dr. Bah to discuss surgical options for her 3) STD screening: Declined STD check. 4) Follow up one year or sooner as needed 5) Patient made aware results will be released to [facility] when available; if she is not active on [employer], she may contact office to get any results at her convenience (the office will contact her directly with abnormal results, a letter with normal results will be sent otherwise). Rosana Roa MD documented in this encounter [facility] 07-15-2024 Note Patient says referra l not needed, but all other info has been faxed. [facility] 07-12-2024 History of Presen t illness Narrative Images from the original note were not included. Subjective Patient ID: Lili Jimenez is a 44 y.o. female who presents for Hand Pain (Patient here today to discuss joint discomfort and have her lower right leg checked.). 1. Hands and fingers, elbows and shoulders. Both sides ache. FH of rheumatoid. Maternal side. Not taking anything. No swelling, no erythema in the joints. 2. Right lower leg got caught on the dog's lead in the yards. Friday, so 3 days ago. No fever or chills. Skin pulls with walking Review of Systems Constitutional: Negative for activity change, chills and fever. Musculoskeletal: Positive for arthralgias. Negative for back pain and gait problem. Skin: Positive for wound. Objective Physical Exam Vitals and nursing note reviewed. Constitutional: General: She is not in acute distress. Appearance: She is not ill-appearing or toxic-appearing. Musculoskeletal: General: No swelling or deformity. Comments: The MP joints of the fingers are tender. No synovitis. NO erythema, no deformity. Right and left shoulder have some crepitance with PROM. Skin: Comments: The right lower leg has a red abrasion. The 2 deeper parts are moist and have some drainage. Is UTD on tetanus Neurological: Mental Status: She is alert. Assessment/Plan Problem List Items Addressed This Visit None Visit Diagnoses Arthralgia of both hands - Primary Acute, uncontrolled Seems like osteoarthritis Check the labs. Has a FH of RA. Relevant Orders C-reactive protein MAYITO Rheumatoid factor Sedimentation rate, automated Abrasion of right lower extremity, initial encounter Acute, uncontrolled Rope burn from a dog lead Tdap is UTD Looks good Keep clean and dry. documented in this encounter [facility] 07-12-2024 Instructions Caitlin Riojas MD - 07/12/2024 10:20 AM EDT Tumeric. Or glucosamine or fish oil documented in this encounter [facility] 07-09-2024 Telephone encounter Note S: Patient called the clinical access center with complaint of fingers and hands aching - arthritis. B: Ongoing few days. A: Patient c/o was told she had arthritis in her shoulders asking if this could be causing the pain in her fingers and hands. Pain to all fingers and both hands 5/10. The pain comes and goes. Has been doing a lot of erica recently . Denies redness numbness fever or swelling R: Appointment scheduled 07/12/24. Insurance verified. Instructed to bring medications to OV. Covid screen negative. Home Care advice given. Patient instructed to call back with worsening symptoms, concerns or questions. Patient verbalized understanding. Message to the office for review by the provider and needs recommendation from Provider for treatment going forward. Reason for Disposition Patient wants to be seen Protocols used: Hand and Wrist [id number] [facility] 07-09-2024 Miscellaneous Notes S: Patient called the clinical access center with complaint of fingers and hands aching - arthritis. B: Ongoing few days. A: Patient c/o was told she had arthritis in her shoulders asking if this could be causing the pain in her fingers and hands. Pain to all fingers and both hands 5/10. The pain comes and goes. Has been doing a lot of erica recently . Denies redness numbness fever or swelling R: Appointment scheduled 07/12/24. Insurance verified. Instructed to bring medications to OV. Covid screen negative. Home Care advice given. Patient instructed to call back with worsening symptoms, concerns or questions. Patient verbalized understanding. Message to the office for review by the provider and needs recommendation from Provider for treatment going forward. Reason for Disposition Patient wants to be seen Protocols used: Hand and Wrist [id number]-HRLWV-GM documented in this encounter [facility] 05-05-2024 History of Presen t illness Narrative Subjective Patient ID: Lili Jimenez is a 43 y.o. female who presents for Annual Exam (Patient here today for her annual physical exam. No refills needed and she mentions having a breakout of poison nicolette.). BP is good today. Tolerates the amlodipine. Has been fatigued. Heavy menses. Every other month. Some cramps. 3 days of flow. Had COVID in November. It wiped her out. Less exercise. Chart reviewed Review of Systems Constitutional: Positive for activity change and fatigue. Negative for chills and fever. Respiratory: Negative for chest tightness and shortness of breath. Cardiovascular: Negative for chest pain and leg swelling. Gastrointestinal: Negative for abdominal pain, blood in stool, constipation and diarrhea. Genitourinary: Positive for menstrual problem and vaginal bleeding. Neurological: Negative for dizziness and headaches. Objective Physical Exam Vitals and nursing note reviewed. Constitutional: General: She is not in acute distress. Appearance: She is not ill-appearing or toxic-appearing. HENT: Right Ear: Tympanic membrane normal. Left Ear: Tympanic membrane normal. Nose: Nose normal. Mouth/Throat: Pharynx: No oropharyngeal exudate or posterior oropharyngeal erythema. Eyes: General: No scleral icterus. Conjunctiva/sclera: Conjunctivae normal. Pupils: Pupils are equal, round, and reactive to light. Neck: Vascular: No carotid bruit. Cardiovascular: Rate and Rhythm: Normal rate and regular rhythm. Heart sounds: Normal heart sounds. No murmur heard. Pulmonary: Effort: Pulmonary effort is normal. No respiratory distress. Breath sounds: Normal breath sounds. Abdominal: General: Bowel sounds are normal. There is no distension. Tenderness: There is no abdominal tenderness. There is no right CVA tenderness or left CVA tenderness. Musculoskeletal: Cervical back: Neck supple. Lymphadenopathy: Cervical: No cervical adenopathy. Skin: General: Skin is warm and dry. Capillary Refill: Capillary refill takes less than 2 seconds. Coloration: Skin is not jaundiced. Neurological: Mental Status: She is alert and oriented to person, place, and time. Cranial Nerves: No cranial nerve deficit. Psychiatric: Thought Content: Thought content normal. Assessment/Plan Problem List Items Addressed This Visit None Visit Diagnoses Routine adult health maintenance - Primary Relevant Orders Comprehensive metabolic panel Screening mammogram, encounter for Relevant Orders Bilateral screening mammogram with tomosynthesis Other fatigue Acute on chronic, uncontrolled Check the labs Resume the vitamins Relevant Orders TSH CBC documented in this encounter [facility] 01-02-2024 History of Presen t illness Narrative Subjective Patient ID: Lili Jimenez is a 43 y.o. female who presents for Edema (Patient here today to discuss multiple issues, including swollen lymph nodes in the axilla areas. She did have positive covid-19 about one month ago.). 1. ENT did allergy testing December 24. Did 12 spots on each arm. Couple hours later, the lymph nodes swelled. Both sides had 2 reaction. Is going to go on serum shots. Lymph nodes stayed sore and swollen for over the next 6 days. Took Zyrtec and Benadryl after the reactions. Had a mammogram in August. 2. Took a shower on 12/28 and the right index finger turned pale. Hands and fingers often seem cool. Chart reviewed Review of Systems Constitutional: Negative for chills and fever. Neurological: Negative for weakness and numbness. Objective Physical Exam Vitals and nursing note reviewed. Constitutional: General: She is not in acute distress. Appearance: She is not ill-appearing or toxic-appearing. Cardiovascular: Rate and Rhythm: Normal rate and regular rhythm. Pulmonary: Effort: Pulmonary effort is normal. No respiratory distress. Breath sounds: No wheezing. Musculoskeletal: General: No tenderness. Cervical back: No rigidity. Comments: No lymph node enlargement in the axilla at this time Lymphadenopathy: Cervical: No cervical adenopathy. Neurological: Mental Status: She is alert. Assessment/Plan Problem List Items Addressed This Visit None Visit Diagnoses Lymphadenitis, acute - Primary Acute, resolving Likely related to the positive allergy testing on the forearms Continue to monitor Raynaud's disease without gangrene Acute, uncontrolled Left index finger turned white Has had some issues with BP Will put her on a small dose of a calcium channel asya Relevant Medications amLODIPine (Norvasc) 2.5 MG tablet COVID-19 documented in this encounter [facility] 12-30-2023 Telephone encounter Note Nothing further. Sounds like just a simple reaction to the allergy testing. [facility] Work Phone: 12-30-2023 Miscellaneous Notes Nothing further. Sounds like just a simple reaction to the allergy testing. S: Patient spoke with [facility] nurse regarding swollen glands. B: Onset of symptoms/concern 6 days. A: Patient reports that on she had an ENT appointment which included an allergy test. Patient reports an hour later her armpit lymph nodes began to swell. Reports taking Zyrtec and Benadryl over the weekend with some relief. Reports the glands are still swollen under her right arm and still irritated. Reports that yesterday her L index finger turned really yellow at the tip and felt like a circulation issue. Denies chest pain, fever, difficulty breathing, stiff neck, dizziness, rash/redness. Requesting office visit. R: Office visit offered and declined for tomorrow due to provider preference. Office visit scheduled for 01/02/[address] Riojas due to patient wanting to see only Dr. Riojas. Insurance verified per policy. Patient understands care advice. No further needs at this time. Patient instructed to call back with new or worsening symptoms. Reason for Disposition [1] Tender node in the armpit AND [2] has a sore, scratch, cut or painful red area on that arm Protocols used: Lymph Nodes - [id number] documented in this encounter [facility] 12-30-2023 Telephone encounter Note S: Patient spoke with [facility] nurse regarding swollen glands. B: Onset of symptoms/concern 6 days. A: Patient reports that on she had an ENT appointment which included an allergy test. Patient reports an hour later her armpit lymph nodes began to swell. Reports taking Zyrtec and Benadryl over the weekend with some relief. Reports the glands are still swollen under her right arm and still irritated. Reports that yesterday her L index finger turned really yellow at the tip and felt like a circulation issue. Denies chest pain, fever, difficulty breathing, stiff neck, dizziness, rash/redness. Requesting office visit. R: Office visit offered and declined for tomorrow due to provider preference. Office visit scheduled for 01/02/[address] Riojas due to patient wanting to see only Dr. Riojas. Insurance verified per policy. Patient understands care advice. No further needs at this time. Patient instructed to call back with new or worsening symptoms. Reason for Disposition [1] Tender node in the armpit AND [2] has a sore, scratch, cut or painful red area on that arm Protocols used: Lymph Nodes - [id number] [facility] 12-08-2023 History of Presen t illness Narrative Images from the original note were not included. [facility] [address] [place] [address] [address] [facility] [id number] Dept: [phone] Dept Visit type: Established patient Reason for Visit: COVID19 Patient was identified and seen today via Telehealth by agreement and consent. I used the following Telehealth technology: Audio and video capabilities. Patient location: [place] Patient Location: Home. This patient encounter is appropriate and reasonable under the circumstances: too sick to leave home . The patient has been advised of the potential risks and limitations of this mode of treatment (including but not limited to the absence of in-person examination) and has agreed to be treated in a remote fashion in spite of them. Any and all of the patient's/patient's family's questions on this issue have been answered and I have made no promises or guarantees to the patient. The patient has also been advised to contact this office for worsening conditions or problems, and seek emergency medical treatment and/or call 911 if the patient deems either necessary. The patient stated that they are currently in the state [facility]. If the patient is a minor, permission has been obtained by the parent or guardian for the patient to receive medical care at this visit. Assessment and Plan 1. COVID-19 - Hx and PE indicate acute viral URI. Recommend supportive measures for symptom management, discussed increased rest, increased fluid intake. Pt can also utilize cool mist humidifier, saline nasal spray, honey, and warm liquids. - OTC medications for symptom management discussed tylenol or ibuprofen for fevers, aches and pains, pseudoephedrine for congestion, guaifenesin for cough and to thin secretions - Reviewed isolation/quarantine guidelines for COVID19 as recommended by CDC - Discussed expectations for duration of symptoms can persist up to 7-10 days before improvement is seen. - F/U for new or worsening symptoms, or symptoms that persist past 10 days. Follow up if symptoms worsen or fail to improve. Subjective Lili Jimenez is a patient of Dr Riojas that presents today with the c/c of COVID19 infection Symptoms started Friday. Tested positive today. URI This is a new problem. The current episode started in the past 7 days. The problem has been gradually worsening. The maximum temperature recorded prior to her arrival was 100.4 - 100.9 F. The fever has been present for 1 to 2 days. Associated symptoms include congestion, coughing, diarrhea, headaches, nausea, rhinorrhea, a sore throat and vomiting. Pertinent negatives include no abdominal pain, chest pain, ear pain or wheezing. She has tried acetaminophen and decongestant (delsym) for the symptoms. The treatment provided mild relief. Review of Systems Constitutional: Positive for chills, fatigue and fever. HENT: Positive for congestion, rhinorrhea and sore throat. Negative for ear pain, trouble swallowing and voice change. Respiratory: Positive for cough. Negative for shortness of breath and wheezing. Cardiovascular: Negative for chest pain. Gastrointestinal: Positive for diarrhea, nausea and vomiting. Negative for abdominal pain. Neurological: Positive for headaches. Allergies Allergen Reactions Blue Dyes (Parenteral) Diarrhea Other reaction(s): Vomiting Sumatriptan Other reaction(s): AOF, Intolerance, Intolerance Current Outpatient Medications Medication Sig Dispense Refill famotidine-calcium carb-mag hydroxide (Pepcid Complete) [phone] MG chewable tablet Chew 1 tablet every evening. loratadine (Claritin) 10 MG tablet Take 10 mg by mouth daily as needed. nebivolol (Bystolic) 2.5 MG tablet Take 1 tablet (2.5 mg) by mouth daily. 90 tablet 3 pantoprazole (ProtoNix) 40 MG EC tablet Take 40 mg by mouth daily. Yqzcob-ZnGjs-IuJqz-Meth-FA-DHA (Prenate Mini) 18-0.6-0.4-350 MG capsule Take 1 tablet by mouth in the morning. No current facility-administered medications for this visit. Past Medical History: Diagnosis Date Allergies dog, mold, pollen etc GERD (gastroesophageal reflux disease) Social History Tobacco Use Smoking status: Never Passive exposure: Never Smokeless tobacco: Never Substance Use Topics Alcohol use: No Past Surgical History: Procedure Laterality Date OTHER SURGICAL HISTORY 09/2017 miscarraige w/o D&C Family History Problem Relation Name Age of Onset Breast cancer Mother [place] 55 Had genetic testing - non genetic cancer Other (54956) Father Romeo stomach issues Kidney disease Father Romeo No Known Problems Brother Heart disease Maternal Grandmother Samantha has had open heart surgery Colon cancer Maternal Grandfather Doug Heart disease Maternal Grandfather Doug has had heart cath Dementia Maternal Grandfather Doug Heart attack Paternal Grandmother hx of No Known Problems Paternal Grandfather Breast cancer Father's Sister Objective There were no vitals taken for this visit. PE limited due to VV appointment type. Physical Exam Constitutional: General: She is not in acute distress. Appearance: Normal appearance. Pulmonary: Effort: Pulmonary effort is normal. Comments: Pt is speaking in full sentences without increased effort. No audible wheezing heard. Neurological: Mental Status: She is alert. Psychiatric: Mood and Affect: Mood normal. Data Reviewed and Summarized Labs: Imaging/Testing: BRITTNY Yoder CNP documented in this encounter [facility] 12-08-2023 Telephone encounter Note S-Pt called back and is COVID Positive R-MY CHART Virtual Visit sched POD J SirLouis @ 11:40a today 12/08/23. [facility] 12-08-2023 Miscellaneous Notes S-Pt called back and is COVID Positive R-MY CHART Virtual Visit sched POD J SirLouis @ 11:40a today 12/08/23. S: Patient spoke with [facility] nurse regarding Headache, dry cough, fever, congestion started yesterday, vomiting during the night B: Onset of symptoms/concern started yesterday A: states has not tested for COVID, has cough that is dry, sore throat fever vomited. R: Advised to test for COVID and call office back with results. Push fluids, gargle warm salt water, honey off the spoon, humidifier. Patient understands care advice. No further needs at this time. Patient instructed to call back with new or worsening symptoms. Reason for Disposition [1] COVID-19 infection suspected by caller or triager AND [2] mild symptoms (cough, fever, or others) AND [3] has not gotten tested yet Protocols used: Coronavirus (COVID-19) Diagnosed or [id number] documented in this encounter [facility] 12-08-2023 Telephone encounter Note S: Patient spoke with [facility] nurse regarding Headache, dry cough, fever, congestion started yesterday, vomiting during the night B: Onset of symptoms/concern started yesterday A: states has not tested for COVID, has cough that is dry, sore throat fever vomited. R: Advised to test for COVID and call office back with results. Push fluids, gargle warm salt water, honey off the spoon, humidifier. Patient understands care advice. No further needs at this time. Patient instructed to call back with new or worsening symptoms. Reason for Disposition [1] COVID-19 infection suspected by caller or triager AND [2] mild symptoms (cough, fever, or others) AND [3] has not gotten tested yet Protocols used: Coronavirus (COVID-19) Diagnosed or [id number] [facility] 09-23-2023 Telephone encounter Note Pharmacy is requesting a 90-day supply. [facility] 09-23-2023 Miscellaneous Notes Pharmacy is requesting a 90-day supply. documented in this encounter [facility] 09-22-2023 Instructions Rosana Roa MD - 09/22/2023 8:45 AM EST Calcium 1200-1500mg/d (in divided doses of ~500-600mg/dose) VitD3 [id number] international unit(s) daily Bcomplex- at least 100% B6/B12 Magnesium/Zinc- 100% FRAME STRAIGHTENER Folic Acid ~4mg/day ACOG Screening Guidelines The following health screening schedule is recommended by the [place] [employer]ne[employer] (ACOG). Some of these tests may be ordered or performed by your primary care doctor. Pap test screening The pap test looks at cells on the cervix (the opening from the vagina to the uterus) to look for cancer or pre-cancerous changes. These changes are caused by the human papillomavirus (HPV). Studies estimate that half of all women will test positive for this virus within 3 years of starting sexual activity. For young women with a normal immune system, 90% of HPV infections will resolve within 2 years. There is a vaccine available against some forms of HPV. This is recommended for girls and women age 9-45. For ages 9-14, two injections are given at 0 and 6 months. For ages 15-45, three injections are given at 0,2 and 6 months. Because this vaccine does not protect against all HPV types which can cause cervical cancer, women who received the vaccine still need pap tests. Pap smear screening should be started at age 21. The pap test should be done every 3 years from age 21-29. From age 30-65, pap smears can be done every 5 years if HPV test is negative or every 3 years if HPV testing is not done. For women over the age of 65, ACOG recommends against screening women who have had adequate prior screening and are not otherwise at high risk for cervical cancer. Women who have had a hysterectomy also do not need routine pap smear screening unless the pap smear was done for a cervical cancer or moderate to severe dysplasia. Breast cancer screening Mammogram should be performed every 1-2 years starting at age 40 and every year starting at age 50. Screening may be started earlier depending on family history. Cholesterol screening Lipid panel (cholesterol test) should be checked every 5 years starting at age 45. Diabetes screening Fasting glucose (blood sugar) test should be performed every 3 years starting at age 45. Colorectal cancer screening Starting at age 45, women should have a screening colonoscopy at least every 10 years. Screening may be started earlier depending on family history. Thyroid screening Thyroid function test (TSH) should be checked every 5 years starting at age 50. Bone mineral density screening All postmenopausal women age 65 and over and postmenopausal women with risk factors for osteoporosis should have a bone mineral density test performed. Risk factors include race, family history of osteoporosis, personal history of fractures, poor nutrition, smoking, heavy alcohol use, early menopause, low calcium intake and low body weight. Certain medical conditions and long-term use of some medications may also increase risk. Calcium and Vitamin D Supplementation (from the National Institutes of Health Office of Dietary Supplements 2011) Calcium is required by the body for blood vessel, muscle, hormone and nerve functioning. Most of the body's calcium is stored in the bones and teeth where it supports structure and function. Bone is continuously broken down and reformed. When bone breakdown exceeds formation, especially in postmenopausal women, bone loss can increase the risk of osteoporosis and fractures. In addition to low calcium intake, women who smoke, have a family history of osteoporosis, are thin, or , or who take certain medications such as cancer chemotherapy, seizure mediations and steroids are at increased risk of osteoporosis. The calcium requirements in women change with age. The National Institutes of Health (NIH) recommends: 1000mg elemental calcium for premenopausal women age 19-50 1200mg elemental calcium for postmenopausal women and all women over 50 Milk, yogurt, and cheese are rich natural sources of calcium and are the major food contributors in the [place]. For example, 8oz of milk (whole, lowfat or skim) contains about 300mg calcium, 8oz of yogurt contains 415mg. Nondairy sources include salmon and sardines and vegetables, such as [place] cabbage, kale, and broccoli. Foods fortified with calcium include many fruit juices, tofu and cereals. For more food calcium content information, visit http://ods.od.nih.gov/factsheet s/calcium. Calcium supplements come in several different forms. Remember that the recommendations are for millgrams (mg) of elemental calcium which may be less than the total weight of the supplement. The amount of elemental calcium is required to be printed on the label. Calcium carbonate is the least expensive form. It must be taken on a full stomach to be properly absorbed. Some patients may experience gas or constipation. Calcium phosphate and calcium citrate may be taken either with or without food and tend to have less side effects but are generally more expensive. Because of its ability to neutralize stomach acid, calcium carbonate is found in some [id number] antacid products, such as Tums and Rolaids . Depending on its strength, each chewable pill or softchew provides 200 to 400 mg of elemental calcium. The percentage of calcium absorbed depends on the total amount of elemental calcium consumed at one time. Absorption is highest in doses <500mg. So a woman who takes 1,000mg/day of calcium from supplements should split the dose and take 500mg at two separate times during the day. Too much calcium can cause kidney stones, constipation, difficulty absorbing other nutrients and calcium buildup in blood vessels. Women under 50 should not exceed 2500mg/day (2000mg/day for women over 50) of calcium from food and supplements. Excessive alcohol and caffeine intake can inhibit absorption of calcium. Calcium can reduce the absorption of some medications if taken at the same time of day (bisphosphonates, thyroid medication, Phenytoin and other seizure medications, some antibiotics and iron supplements). Vitamin D promotes calcium absorption in the gut and maintains adequate blood levels of calcium and phosphate for normal bone growth and bone remodeling. Vitamin D also helps regulate cell growth as well as nerve, muscle and immune system function. Vitamin D is produced in the skin as a result of ultraviolet sunlight rays and must be altered in the liver and kidney to become its active form. Recommended intake according to the National Institutes of Health is 600 International Units (IU) for girls and women ages 1-70 and 800 IU for women over 70. Very few foods in nature contain vitamin D. The flesh of fatty fish (such as salmon, tuna, and mackerel) and fish liver oils are among the best sources. Small amounts of vitamin D are found in beef liver, cheese, mushrooms and egg yolks. Most people meet at least some of their vitamin D needs through exposure to sunlight. Season, time of day, length of day, cloud cover, smog, skin melanin content, and sunscreen are among the factors that affect UV radiation exposure and vitamin D synthesis. Despite the importance of the sun for vitamin D synthesis, it is prudent to limit exposure of skin to sunlight and avoid tanning beds. UV radiation is a carcinogen responsible for most of the estimated 1.5 million skin cancers that occur annually in the [place]. Lifetime cumulative UV damage to skin is also responsible for some age-associated dryness and other cosmetic changes. In supplements and fortified foods, vitamin D is available in two forms, D2 (ergocalciferol) and D3 (cholecalciferol). The two are equivalent at normal supplement doses. For women who require high supplement doses because of vitamin D deficiency, D3 may work better to raise blood levels. Some medications can prevent proper absorption of Vitamin D. These include laxatives, corticosteroids like prednisone, the seizure drugs phenobarbital and phenytoin, the weight-loss drug orlistat ( Xenical and AlliTM) and the cholesterol-lowering drug cholestyramine (Questran , LoCholest , and Prevalite ). Talk to your doctor about adjusting your recommended daily vitamin D dosage if you take these medications. You should not exceed 4000 mg of vitamin D supplementation daily unless specifically prescribed by your doctor. documented in this encounter [facility] 09-22-2023 History of Presen t illness Narrative Lili is a 43 year old who presents for an annual gynecologic exam with complaints, this last cycle, few days before very blackwell (wondering about hormone issues now that off OCP since March)- encouraged calendar charting & discussed Vit/Min supplementation for possible PMS . Thorough past history obtained/updated/reviewed with today's visit. Pt states there are no significant changes to her past medical and surgical history. Rigging Man offered: Patient declines. Menses: cycles every ~28 days and ~3 days of moderate, occasional clots flow, mild dysmenorrhea (treated with NSAIDs). Contraception: none HPV vaccine: No Last Pap: 08/09/2020 normal HPV: 08/07/2020 negative History of abnormal pap: No Last mammogram: 2022normal Prior history of abnormal mammogram, yes- follow up views benign. Sexually active: Yes History of STDS: None OB History T0 L0 SAB1 IAB0 Ectopic1 Multiple0 Live Births0 [place] History LMP: 09/17/2023, Having periods Age at Menarche: 15 Age at First : 37 Age at Menopause: Netting Weaver History Comments: Sexual Activity: Yes; Male Contraception: No contraception data on record PAST MEDICAL HISTORY Diagnosis Date Gastroesophageal reflux disease without esophagitis History of ectopic 04/25/2019 right s/p LS right salpingectomy Hypoglycemia, unspecified Rosacea PAST SURGICAL HISTORY Procedure Laterality Date LAPAROSCOPY W/REMOVAL ADNEXAL STRUCTURES Right 04/25/2019 tube removed due to ectopic NASAL SURGERY PROCEDURE 09/2015 septal repair FAMILY HISTORY Problem Relation Age of Onset Hypertension Mother Kidney Disease Mother Breast Cancer Mother 55 Hypertension Father Kidney Disease Father Coronary Artery Disease Maternal Grandmother Ischemic Heart Disease Maternal Grandfather Cancer Maternal Grandfather Carcinoid Stroke Paternal Grandmother Aneurysm Paternal Grandfather brain Breast Cancer Paternal Aunt Stroke Other Heart Other Breast Cancer Other mult M/P Gr aunt Cervical Cancer No Family History Ovarian cancer No Family History Uterine Cancer No Family History Colon Cancer No Family History Pancreatic Cancer No Family History Prostate Cancer No Family History SOCIAL HISTORY Social History Tobacco Use Smoking status: Never Smokeless tobacco: Never Vaping Use Vaping Use: Never used Substance Use Topics Alcohol use: No Drug use: No REVIEW OF SYSTEMS Abdomen: No abdominal pain, nausea, vomiting, diarrhea, or constipation. Bladder: No dysuria, gross hematuria, urinary frequency, urinary urgency, or incontinence. Breast: No breast lumps, nipple d/c, overlying skin changes, redness or skin retraction and +SBE normal. Allergies and current medication updated:Yes EXAM: BP 100/68 Wt 136 lb 14.5 oz (62.1kg) LMP 09/17/2023 GENERAL: pleasant, female in no apparent distress HEENT: Normocephalic, atraumatic, mucus membranes moist, and no lesions NECK: Supple, full range of motion, no adenopathy, and thyroid normal DERMATOLOGY: Normal, without lesions, non-icteric, and non-hirsute BREAST: soft, non-tender, symmetric, no dominant mass, normal nipple-areolar complex, no lymphadenopathy, and no nipple discharge CHEST: Clear to auscultation, Normal inspiratory effort, and Regular rate and rhythm ABDOMEN: soft, non-tender, and no masses PELVIC: external genitalia normal, normal Bartholin's glands, urethra, [place]'s glands, no vulvar lesions, no cervical lesions, good vaginal support, physiologic discharge present, normal appearing perineal body and perianal region BIMANUAL: uterus normal size, shape and consistency, no adnexal masses, and non-tender RECTOVAGINAL: deferred. NEURO: alert and oriented x3,exam grossly non-focal EXTREMITIES: normal ASSESSMENT/PLAN: 1) Health maintenance: Pap/HPV up to date- both negative 2019, next after 08/13 Mammogram ordered. Nutrition, exercise and routine health maintenance exams reviewed. Calcium/Vitamin D supplementation information provided. HPV vaccine: discussed, not interested ?possible OMS- Vit/Min supplementation reviewed. 2) Contraception: none (would be welcoming of a ) 3) STD screening: Declined STD check. 4) Follow up one year or sooner as needed 5) Pt made aware that we will notify of Abnormal results only. I will use her MyChart as needed for results, she may contact office to get any results at her convenience. Rosana Roa MD documented in this encounter [facility] 05-29-2023 History of Presen t illness Narrative Subjective Patient ID: Lili Jimenez is a 43 y.o. female who presents for Hypertension (Questions- family has HTN, she has been thinking some symptoms she has like heart racing, hot/flush, shakey, stress anxiety. Watching her caffeine intake. Has been high in the past.). FH of HTN and Dad has anxiety. Gets anxious and shaky. Labs looked good in April. Heart goes fast. Is watching the caffeine. Chart reviewed Hypertension This is a new problem. The current episode started 1 to 4 weeks ago. Associated symptoms include palpitations. Pertinent negatives include no chest pain. Review of Systems Constitutional: Positive for diaphoresis. Negative for activity change. Gets hot and sweaty Respiratory: Negative for chest tightness. Cardiovascular: Positive for palpitations. Negative for chest pain. Objective Physical Exam Vitals and nursing note reviewed. Constitutional: General: She is not in acute distress. Appearance: She is not ill-appearing or toxic-appearing. Cardiovascular: Rate and Rhythm: Normal rate and regular rhythm. Pulses: Normal pulses. Heart sounds: Normal heart sounds. No murmur heard. Musculoskeletal: Right lower leg: No edema. Left lower leg: No edema. Neurological: Mental Status: She is alert. Assessment/Plan Problem List Items Addressed This Visit None Visit Diagnoses Anxiety - Primary Acute on chronic, uncontrolled Gets the adrenaline qureshi symptoms Relevant Medications atenolol (Tenormin) 25 MG tablet Tachycardia Acute on chronic As above Relevant Medications atenolol (Tenormin) 25 MG tablet documented in this encounter [facility] 05-29-2023 History of Presen t illness Narrative Subjective Patient ID: Lili Jimenez is a 43 y.o. female who presents for Hypertension (Questions- family has HTN, she has been thinking some symptoms she has like heart racing, hot/flush, shakey, stress anxiety. Watching her caffeine intake. Has been high in the past.). FH of HTN and Dad has anxiety. Gets anxious and shaky. Labs looked good in April. Heart goes fast. Is watching the caffeine. Chart reviewed Hypertension This is a new problem. The current episode started 1 to 4 weeks ago. Associated symptoms include palpitations. Pertinent negatives include no chest pain. Review of Systems Constitutional: Positive for diaphoresis. Negative for activity change. Gets hot and sweaty Respiratory: Negative for chest tightness. Cardiovascular: Positive for palpitations. Negative for chest pain. Objective Physical Exam Vitals and nursing note reviewed. Constitutional: General: She is not in acute distress. Appearance: She is not ill-appearing or toxic-appearing. Cardiovascular: Rate and Rhythm: Normal rate and regular rhythm. Pulses: Normal pulses. Heart sounds: Normal heart sounds. No murmur heard. Musculoskeletal: Right lower leg: No edema. Left lower leg: No edema. Neurological: Mental Status: She is alert. Assessment/Plan Problem List Items Addressed This Visit None Visit Diagnoses Anxiety - Primary Acute on chronic, uncontrolled Gets the adrenaline qureshi symptoms Relevant Medications atenolol (Tenormin) 25 MG tablet Tachycardia Acute on chronic As above Relevant Medications atenolol (Tenormin) 25 MG tablet documented in this encounter [facility] 05-29-2023 Miscellaneous Notes Addended by: CAITLIN RIOJAS on: 05/30/2023 01:41 PM Modules accepted: Level of Service documented in this encounter [facility] 05-29-2023 Note Addended by: CAITLIN RIOJAS on: 05/30/2023 01:41 PM Modules accepted: Level of Service [facility] 05-27-2023 Telephone encounter Note S: [facility] regarding appointment-possible HP B: Per nurse triage ticket created by PALS A: Patient disconnected prior to speaking with nurse. No answer upon return call to patient. R: Patient has already spoken with another triager and appointment scheduled. No further needs at this time. Reason for Disposition Caller has already spoken with another triager and has no further questions Protocols used: No Contact or Duplicate Contact [id number] [facility] 05-27-2023 Miscellaneous Notes S: Patient [facility] the [facility] regarding appointment-possible HP B: Per nurse triage ticket created by IGNACIA A: Patient disconnected prior to speaking with nurse. No answer upon return call to patient. R: Patient has already spoken with another triager and appointment scheduled. No further needs at this time. Reason for Disposition Caller has already spoken with another triager and has no further questions Protocols used: No Contact or Duplicate Contact [id number] documented in this encounter [facility] 05-02-2023 History of Presen t illness Narrative Subjective Patient ID: Lili Jimenez is a 42 y.o. female who presents for Annual Exam (Pt is fasting./Sees [facility]/04/14/[address] tavarez/Has a concern about the back of tongue.). Sees Dr Roa and stopped the BCP. That has helped the moodiness. Has not resumed menses. Did one test and it was negative. Feels the lateral right breast is thickened. Mom and aunts had breast cancer. At the end of the visit, the patient mentioned that she and get to the end of the day and are fatigued and fall asleep in front of the TV. Chart reviewed Review of Systems Constitutional: Positive for fatigue and unexpected weight change. Negative for activity change and appetite change. Respiratory: Negative for chest tightness, shortness of breath and wheezing. Cardiovascular: Negative for chest pain and leg swelling. Gastrointestinal: Negative for abdominal pain, blood in stool, constipation and diarrhea. GERD. Sees Dr Tavarez Genitourinary: Negative for difficulty urinating. Objective Physical Exam Vitals and nursing note reviewed. Constitutional: General: She is not in acute distress. Appearance: She is not ill-appearing or toxic-appearing. HENT: Right Ear: Tympanic membrane normal. Left Ear: Tympanic membrane normal. Nose: Nose normal. Mouth/Throat: Pharynx: No oropharyngeal exudate or posterior oropharyngeal erythema. Comments: Patient is concerned about her circumvallate papilla. They look normal Eyes: General: No scleral icterus. Conjunctiva/sclera: Conjunctivae normal. Pupils: Pupils are equal, round, and reactive to light. Neck: Vascular: No carotid bruit. Cardiovascular: Rate and Rhythm: Normal rate and regular rhythm. Heart sounds: Normal heart sounds. No murmur heard. Pulmonary: Effort: Pulmonary effort is normal. No respiratory distress. Breath sounds: Normal breath sounds. Abdominal: General: Bowel sounds are normal. There is no distension. Tenderness: There is no abdominal tenderness. There is no right CVA tenderness or left CVA tenderness. Musculoskeletal: Cervical back: Neck supple. Lymphadenopathy: Cervical: No cervical adenopathy. Skin: General: Skin is warm and dry. Capillary Refill: Capillary refill takes less than 2 seconds. Coloration: Skin is not jaundiced. Neurological: Mental Status: She is alert and oriented to person, place, and time. Cranial Nerves: No cranial nerve deficit. Psychiatric: Thought Content: Thought content normal. Breast: Normal breast exam bilaterally. No masses, no nipple discharge, no skin changes, no axillary lymphadenopathy Assessment/Plan Problem List Items Addressed This Visit None Visit Diagnoses Routine adult health maintenance - Primary Healthy, stable Relevant Orders Lipid panel Comprehensive metabolic panel CBC Hepatitis C antibody Screening mammogram, encounter for Relevant Orders Bilateral screening mammogram with tomosynthesis Other fatigue Acute, uncontrolled Check the labs May need to look at the sleep quality Relevant Orders TSH documented in this encounter [facility] 04-04-2023 History of Presen t illness Narrative IMPRESSION/PLAN Infertility, history of ectopic, potentially desiring of . Follow up with [facility] as desires, for routine [employer] car in fall or NOB with spontaneous conception (aware of need for early serial quants & US to locate given history) Lili Jimenez is a 42 year old female here today for further evaluation & management of possible desire for . She is here with her partner (father to both pregnancies) HPI They have seen [facility] in past & did multiple IVF/ET (~4) around ~2013 that were unsuccessful. Her 2 pregnancies were spontaneous conceptions. They had been 'trying' since the ectopic in 2019, but due to menses being a trigger to the hemorrhage she had with the ectopic, she has been on continuous OCP for past ~1+y. She does note being quite blackwell on the OCP with a lot of brownish spotting. They are not sure they want to do anything aggressive to achieve but aware that would need to be off OCP to try on their own. Still undecided as to what they want to do. Reviewed with them she should be on daily PNV, if they want to pursue [facility] again can place consult order. She will be due for annual in the fall Rosana Roa MD I spent a total of 24 minutes on the date of the service which included preparing to see the patient (5 min), [id number] patient care, counseling/educating the patient/family/caregiver, ordering medications, tests, or procedures (12 min) and completing clinical documentation (7 min) documented in this encounter [facility] 01-31-2023 History of Presen t illness Narrative Images from the original note were not included. [facility] [id number] [place] [facility] [id number] Dept Visit Date: 01/31/23 HPI: Lili Jimenez is a 42 y.o. female who presents today for: Chief Complaint Patient presents with face problem Has spot/vein on face that goes from forehead down to ear, thought it was a bruise a first. Noticed it 1-2 weeks ago. Also started invisilygn in december, not sure if this has something to do with it or not. HPI Same day appointment today for concerns of a more prominent vein to left mu-ism. Noticed few weeks ago, unchanged. There is no associated rash, pain. Is having teeth pain secondary to new start of invislign. Headaches from chronic sinus problem. No fevers. Current Outpatient Medications Medication Sig Dispense Refill Low-Ogestrel 0.3-30 MG-MCG tablet TAKE 1 TABLET BY MOUTH ONCE DAILY. NEW PACK EVERY 21 DAYS. pantoprazole (ProtoNix) 40 MG EC tablet Take 40 mg by mouth daily. No current facility-administered medications for this visit. Allergies Allergen Reactions Blue Dyes (Parenteral) Diarrhea Other reaction(s): Vomiting Sumatriptan Other reaction(s): AOF, Intolerance, Intolerance Past Medical History: Diagnosis Date Allergies dog, mold, pollen etc Subjective: Review of Systems Constitutional: Negative for fever. Eyes: Negative for visual disturbance. Skin: Positive for color change. Negative for rash. Neurological: Negative for dizziness and headaches. Objective: BP 129/84 (BP Location: Right arm, Patient Position: Sitting, BP Cuff Size: Adult) Pulse 90 Ht 5' 0.5 (1.537 m) Wt 133 lb (60.3 kg) SpO2 98% BMI 25.55 kg/m Physical Exam Vitals and nursing note reviewed. Constitutional: General: She is not in acute distress. Appearance: Normal appearance. She is normal weight. She is not ill-appearing or toxic-appearing. HENT: Head: Normocephalic and atraumatic. Jaw: There is normal jaw occlusion. Comments: Superficial vein noted to left mu-ism, visible from hairline extending towards left ear. There is no signs of phlebitis. Pulmonary: Effort: Pulmonary effort is normal. Neurological: Mental Status: She is alert and oriented to person, place, and time. Assessment: Diagnosis Plan 1. Skin problem Plan: Lili was seen today for face problem . Diagnoses and all orders for this visit: Skin problem (Primary) Exam today reveals superficial vein without signs of phlebitis. Blood pressure within normal limits. No neurological symptoms reported. She has similar vein on contralateral side of face but less pronounced. No concerns. Monitor for any changes/new concerns. Follow up if symptoms worsen or fail to improve. EBBETO Goddard 01/31/2023 3:04 PM documented in this encounter [facility] 01-31-2023 Telephone encounter Note S: Patient spoke with [facility] nurse regarding dark blue vein to left side of face. B: Onset of symptoms/concern: 2 weeks. A: Pt reports a vein on left side of head has gotten darker, now a dark blue. Pt originally thought the blue areas was a bruise. Pt started invisalign in December. Denies redness, swelling, fevers. R: Pt would like to be seen. Scheduled an OV with Melody Lundberg for today at 12 pm. Patient understands care advice. No further needs at this time. Patient instructed to call back with new or worsening symptoms. Reason for Disposition Requesting regular office appointment Protocols used: Information Only Call - No [id number] [facility] 01-31-2023 Miscellaneous Notes S: Patient spoke with [facility] nurse regarding dark blue vein to left side of face. B: Onset of symptoms/concern: 2 weeks. A: Pt reports a vein on left side of head has gotten darker, now a dark blue. Pt originally thought the blue areas was a bruise. Pt started invisalign in December. Denies redness, swelling, fevers. R: Pt would like to be seen. Scheduled an OV with Melody Lundberg for today at 12 pm. Patient understands care advice. No further needs at this time. Patient instructed to call back with new or worsening symptoms. Reason for Disposition Requesting regular office appointment Protocols used: Information Only Call - No [id number] documented in this encounter [facility] 04-25-2019 History of Past i llness Narrative Problem Noted Date Resolved Date Right tubal without intrauterine pregn flor 04/25/2019 05/12/2019 documented as of this encounter (statuses as of 03/08/2022) [facility] History of Past illness Narrative* Problem Noted Date Resolved Date Right tubal without intrauterine pregn flor 04/25/2019 05/12/2019 documented as of this encounter (statuses as of 04/04/2023) [facility] History of Past illness Narrative* Problem Noted Date Resolved Date Right tubal without intrauterine pregn flor 04/25/2019 05/12/2019 documented as of this encounter (statuses as of 04/05/2023) [facility] History of Past illness Narrative* Problem Noted Date Diagnosed Date Resolved Date Right tubal withou t intrauterine 04/25/2019 05/12/2019 documented as of this encounter (statuses as of 09/22/2023) [facility] note* Diagnosis Screening mammogram, encounter for documented in this encounter [facility] Work Phone: Evaluation noteNo assessment information available [facility] Work Phone: Evaluation note* Diagnosis Skin problem- Primary [facility] Diagnosis Female infertility- Primary Female infertility of unspecified origin History of ectopic Personal history of other genital system and obstetric disorders documented in this encounter [facility] note* Diagnosis Routine adult health maintenance- Primary Screening mammogram, encounter for Other fatigue [facility]* Diagnosis Anxiety- Primary Anxiety state, unspecified Tachycardia Unspecified tachycardia [facility] Diagnosis Anxiety- Primary Anxiety state, unspecified Tachycardia Unspecified tachycardia [facility] Diagnosis Screening mammogram, encounter for [facility] Diagnosis Encounter for screening mammogram for malignant neoplasm of breast- Primary documented in this encounter [facility]* Diagnosis Encounter for gynecological examination (general) (routine) without abnormal findings- Primary [facility] Diagnosis Tachycardia Unspecified tachycardia [facility] this [facility]* Diagnosis COVID-19- Primary [facility] this [facility]* Diagnosis COVID-19- Primary [facility]* Diagnosis Lymphadenitis, acute- Primary Acute lymphadenitis Raynaud's disease without gangrene COVID-19 [facility]* Diagnosis Raynaud's disease without gangrene [facility]* Diagnosis Routine adult health maintenance- Primary Screening mammogram, encounter for Other fatigue [facility] this [facility]* Diagnosis Screening mammogram, encounter for [facility]* Diagnosis Arthralgia of both hands- Primary Abrasion of right lower extremity, initial encounter [facility]* Diagnosis Arthralgia of both hands- Primary Positive MAYITO (antinuclear antibody) Other and unspecified nonspecific immunological findings [facility] Diagnosis Positive MAYITO (antinuclear antibody)- Primary Other and unspecified nonspecific immunological findings documented in this encounter [facility] note* Diagnosis Raynaud's disease without gangrene documented in this encounter [facility] note* Diagnosis Encounter for gynecological examination (general) (routine) without abnormal findings- Primary documented in this encounter [facility] note* Diagnosis Rheumatoid arthritis, involving unspecified site, unspecified whether rheumatoid factor present (HCC) Raynaud's disease without gangrene Gastro-esophageal reflux disease without esophagitis Esophageal reflux Encounter for sterilization Sterilization documented in this encounter [facility] note* Diagnosis Post-operative state [Z98.890]- Primary Other postprocedural status documented in this encounter [facility] note* Diagnosis Annual physical exam- Primary Routine general medical examination at a health care facility Raynaud's phenomenon without gangrene Anxiety Anxiety state, unspecified Encounter for screening mammogram for malignant neoplasm of breast documented in this encounter [facility] note* Diagnosis Acquired plantar porokeratosis- Primary Left foot pain Pain in soft tissues of limb Right foot pain Pain in soft tissues of limb [facility] Attachments The following attachments cannot be sent through Care Everywhere. * COVID-19 Overview (Lao) [facility] Consultation (Routine) - Pending Review Specialty Diagnoses / Procedures Referred By Jacob clark Referred To Contact Rheumatology Diagnoses Arthralgia of both hands Positive MAYITO (antinuclear antibody) Procedures [place] OFFICE/OUTPATIENT [facility] MDM 60 MINUTES Caitlin Riojas MD [address] [place] [id number] Referral ID Status Reason Start Date Expiration Date Visits Requested Visits Authorized [id number] Pending Review Specialty Services Required 07/15/2024 07/15/2025 1 1 [facility] Consultation (Routine) - Pending Review Specialty Diagnoses / Procedures Referred By Contlashae t Referred To Contact Rheumatology Diagnoses Positive MAYITO (antinuclear antibody) Procedures [place] OFFICE/OUTPATIENT [facility] 60 MINUTES Caitlin Riojas MD [address] [address] Referral ID Status Reason Start Date Expiration Date Visits Requested Visits Authorized [id number] Pending Review Specialty Services Required 07/18/2024 07/18/2025 1 1 [facility] for referral (narrative)No reason for referral information [facility]WBarnes[facility] Work Phone: Summary Purpose Family History No Family History Records FoundNo Family History Records FoundNo Family History Records FoundNo Family History Records FoundNo Family History Records FoundNo Family History Records FoundNo Family History Records FoundNo Family History Records FoundNo Family History Records Found Advance Directives Documents on File Type Date Recorded Patient Windows Application Administrator Expl anation ACP-Advance Directive ACP-Power of Chain Builder Loom Control Documents on File Type Date Recorded Patient Windows Application Administrator Expl anation Advance Directive(s) 04/25/2019 6:39 AM Advance Directive(s) 10/31/2018 4:30 PM Advance Directive(s) 10/11/2017 10:59 PM Chief Complaint and Reason for Visit Chief Complaint Other chronic sinusi tis Chief Complaint Admit Date PAIN- COPY PCP November 22, 2024 1 2:40pm PAIN- COPY PCP February 22, 2025 3:35pm Chief Complaint Admit Date PAIN- COPY PCP February 22, 2025 3:35pm Reason for Referral Specialty Diagnoses / Procedures Referred By Jacob clark Referred To Contact Diagnoses Female infertility Procedures CONSULT TO INFERTILITY CLINIC OFFICE/OUTPATIENT [facility] 60-74 MINUTES Rosana Roa MD [address] [place] [phone] Referral ID Status Reason Start Date Expiration Date Visits Requested Visits Authorized [id number] Pending Review PCP Requested Referral Auto-Generate d Referral 04/04/2023 07/03/2023 1 1 Additional Source Comments INFORMATION SOURCE (unrecogn ized section and content) DATE CREATED AUTHOR 04/15/2018 [facility] DATE CREATED AUTHOR AUTHOR'S ORGANIZ ATION 11/03/2018 [facility] DATE CREATED AUTHOR AUTHOR'S ORGANIZ ATION 11/03/2018 [facility] DATE CREATED AUTHOR AUTHOR'S ORGANIZ ATION 05/30/2022 [facility] DATE CREATED AUTHOR AUTHOR'S ORGANIZ ATION 05/20/2025 [facility] DATE CREATED AUTHOR AUTHOR'S ORGANIZ ATION 05/21/2025 [facility] DATE CREATED AUTHOR AUTHOR'S ORGANIZ ATION 06/05/2025 [facility] DATE CREATED AUTHOR AUTHOR'S ORGANIZ ATION 06/07/2025 [facility] DATE CREATED AUTHOR AUTHOR'S ORGANIZ ATION 07/05/2025 [facility] Source Comments (unrecognize d section and content) In the event this informatio n is protected by the Federal Confidentiality of Alcohol and Drug Abuse Patient Records regulations: The Federal rules restrict any use of the information to criminally investigate or prosecute any alcohol or drug abuse patient.[facility] the event this information is protected by the Federal Confidentiality of Alcohol and Drug Abuse Patient Records regulations: The Federal rules restrict any use of the information to criminally investigate or prosecute any alcohol or drug abuse patient.[facility] the event this information is protected by the Federal Confidentiality of Alcohol and Drug Abuse Patient Records regulations: The Federal rules restrict any use of the information to criminally investigate or prosecute any alcohol or drug abuse patient.[facility] the event this information is protected by the Federal Confidentiality of Alcohol and Drug Abuse Patient Records regulations: The Federal rules restrict any use of the information to criminally investigate or prosecute any alcohol or drug abuse patient.[facility] the event this information is protected by the Federal Confidentiality of Alcohol and Drug Abuse Patient Records regulations: The Federal rules restrict any use of the information to criminally investigate or prosecute any alcohol or drug abuse patient.[facility] Center[facility] the event this information is protected by the Federal Confidentiality of Alcohol and Drug Abuse Patient Records regulations: The Federal rules restrict any use of the information to criminally investigate or prosecute any alcohol or drug abuse patient.[facility] CenterIn the event this information is protected by the Federal Confidentiality of Alcohol and Drug Abuse Patient Records regulations: The Federal rules restrict any use of the information to criminally investigate or prosecute any alcohol or drug abuse patient.[facility] Center[facility] the event this information is protected by the Federal Confidentiality of Alcohol and Drug Abuse Patient Records regulations: The Federal rules restrict any use of the information to criminally investigate or prosecute any alcohol or drug abuse patient.[facility] Center[facility] the event this information is protected by the Federal Confidentiality of Alcohol and Drug Abuse Patient Records regulations: The Federal rules restrict any use of the information to criminally investigate or prosecute any alcohol or drug abuse patient.[facility] Center[facility] the event this information is protected by the Federal Confidentiality of Alcohol and Drug Abuse Patient Records regulations: The Federal rules restrict any use of the information to criminally investigate or prosecute any alcohol or drug abuse patient.[facility] Care Teams (unrecognized sec tion and content) Imaging Clerk Relationship Specialty Start Date End Date Caitlin Riojas MD [address] [facility] [address] [place] [address] PCP - General Family Practice 10/11/17 Imaging Clerk Relationship Specialty Start Date End Date Caitlin Riojas MD [address] [place] [address] PCP - General Family Medicine 08/08/17 Imaging Clerk Relationship Specialty Start Date End Date Caitlin Riojas MD [address] [place] [address] PCP - General 08/08/17 Imaging Clerk Relationship Specialty Start Date End Date Caitlin Riojas MD [address] [place] [address] PCP - General 08/08/17 Imaging Clerk Relationship Specialty Start Date End Date Caitlin Riojas MD [address] [place] [address] [place] [address] PCP - General Family Medicine 10/11/17 Imaging Clerk Relationship Specialty Start Date End Date Caitlin Riojas MD [address] [place] [address] [place] [address] PCP - General Family Medicine 10/11/17 Imaging Clerk Relationship Specialty Start Date End Date Caitlin Riojas MD [address] [place] [address] PCP - General 08/08/17 Imaging Clerk Relationship Specialty Start Date End Date Caitlin Riojas MD [address] [place] [address] PCP - General 08/08/17 Imaging Clerk Relationship Specialty Start Date End Date Caitlin Riojas MD [address] [place] [address] PCP - General 08/08/17 Imaging Clerk Relationship Specialty Start Date End Date Caitlin Riojas MD [address] [place] [address] PCP - General 08/08/17 Imaging Clerk Relationship Specialty Start Date End Date Caitlin Riojas MD [address] [place] [address] PCP - General 08/08/17 Imaging Clerk Relationship Specialty Start Date End Date Caitlin Riojas MD [address] [place] [address] PCP - General 08/08/17 Team Status: Active Member Role Status Dates Dr. Caitlin Riojas MD Primary Care Provider Active Team Status: Inactive Member Role Status Dates Dr. Caitlin Riojas MD Primary Care Provider Active Dr. Filemon Garcia MD Attending Provider, Brenda adler Active Imaging Clerk Relationship Specialty Start Date End Date Caitlin Riojas MD [address] [place] [address] [place] [address] PCP - General Family Medicine 10/11/17 Imaging Clerk Relationship Specialty Start Date End Date Caitlin Riojas MD [address] [place] [address] PCP - General 08/08/17 Imaging Clerk Relationship Specialty Start Date End Date Caitlin Riojas MD [address] [place] [address] PCP - General 08/08/17 Imaging Clerk Relationship Specialty Start Date End Date Caitlin Riojas MD [address] [place] [address] PCP - General 08/08/17 Imaging Clerk Relationship Specialty Start Date End Date Caitlin Riojas MD [address] [place] [address] PCP - General 08/08/17 Imaging Clerk Relationship Specialty Start Date End Date Caitlin Riojas MD [address] [place] [address] PCP - General 08/08/17 Imaging Clerk Relationship Specialty Start Date End Date Caitlin Riojas MD [address] [place] [address] PCP - General 08/08/17 Imaging Clerk Relationship Specialty Start Date End Date Caitlin Riojas MD [address] [place] [address] PCP - General 08/08/17 Imaging Clerk Relationship Specialty Start Date End Date Caitlin Riojas MD [address] [place] [address] PCP - General 08/08/17 Imaging Clerk Relationship Specialty Start Date End Date Caitlin Riojas MD [address] [place] [address] PCP - General 08/08/17 Imaging Clerk Relationship Specialty Start Date End Date Caitlin Riojas MD [address] [place] [address] PCP - General 08/08/17 Team Status: Inactive Member Role Status Dates Dr. Caitlin Riojas MD Primary Care Provider Active Start: November 22, 2024 End: November 22, 2024 Dr. Uyen Cortes MD Attending Provider Active Start: November 22, 2024 End: November 22, 2024 Dr. Uyen Cortes MD Referring Provider Active Start: November 22, 2024 End: November 22, 2024 Team Status: Inactive Member Role Status Dates Dr. Caitlin Riojas MD Primary Care Provider Active Start: February 22, 2025 End: February 22, 2025 Dr. Uyen Cortes MD Attending Provider Active Start: February 22, 2025 End: February 22, 2025 Dr. Uyen Cortes MD Referring Provider Active Start: February 22, 2025 End: February 22, 2025 Team Status: Active Member Role/Relationship Status Dates Dr. Caitlin Riojas MD Primary Care Provider Active Team Status: Inactive Member Role/Relationship Status Dates Dr. Caitlin Riojas MD Primary Care Provider Active Start: February 22, 2025 End: February 22, 2025 Dr. Uyen Cortes MD Attending Provider Active Start: February 22, 2025 End: February 22, 2025 Dr. Uyen Cortes MD Referring Provider Active Start: February 22, 2025 End: February 22, 2025 Team Status: Inactive Member Role/Relationship Status Dates Dr. Caitlin Riojas MD Primary Care Provider Active Start: May 26, 2025 End: May 26, 2025 Dr. Uyen Cortes MD Attending Provider Active Start: May 26, 2025 End: May 26, 2025 Dr. Uyen Cortes MD Referring Provider Active Start: May 26, 2025 End: May 26, 2025 Imaging Clerk Relationship Specialty Start Date End Date Verito Elder DO [address] [facility] [address] [place] [address] PCP - General Internal Medicine 06/06/25 Goals (unrecognized section and content) Goals may be documented in a n alternate sectionGoals may be documented in an alternate sectionGoals may be documented in an alternate sectionGoals may be documented in an alternate section Reason for Visit (unrecogniz ed section and content) Reason Onset Date Comments Release of Information 01/31/2023 Reason Comments face problem Has spot/vein on fac e that goes from forehead down to ear, thought it was a bruise a first. Noticed it 1-2 weeks ago. Also started invisilygn in december, not sure if this has something to do with it or not. Reason Comments Med Change Request Reason Comments Contraception Reason Comments Annual Exam Pt is fasting.Sees O B/GYN04/14/[address] Linder a concern about the back of tongue. Reason Onset Date Comments Appointment 05/27/2023 Reason Comments Hypertension Questions- family fortune s HTN, she has been thinking some symptoms she has like heart racing, hot/flush, shakey, stress anxiety. Watching her caffeine intake. Has been high in the past. Reason Comments Well Woman Reason Onset Date Comments Med Refill 09/23/2023 Reason Onset Date Comments Epidemic Concern 12/08/2023 Reason Comments COVID19 Reason Comments Edema Patient here today t o discuss multiple issues, including swollen lymph nodes in the axilla areas. She did have positive covid-19 about one month ago. Reason Onset Date Comments Swollen Glands 12/30/2023 Reason Comments Annual Exam Patient here today f or her annual physical exam. No refills needed and she mentions having a breakout of poison nicolette. Reason Onset Date Comments Hand Pain 07/09/2024 Reason Comments Hand Pain Patient here today t o discuss joint discomfort and have her lower right leg checked. Reason Comments Med Refill Reason Comments Anesthesia Consult Reason Comments Post-Op Visit Reason Comments Appointment Reason Comments Annual Exam Physical, no concern s today New Patient New to provider Referral Needs referral for M ammogram Reason Comments Foot Problem Bilateral callus/erika ntar wart x mos - pt states that the calluses are on the ball of the feet and the L has become more painful recently FOR RECORDS PERTAINING TO PATIENTS WHO ARE OR HAVE BEEN ENROLLED IN A CHEMICAL DEPENDENCY/SUBSTANCEABUSE PROGRAM, SOME INFORMATION MAY BE OMITTED. This clinical summary was aggregated from multiple sources. Caution should be exercised in using it in the provision of clinical care. This summary normalizes information from multiple sources, and as a consequence, information in this document may materially change the coding, format and clinical context of patient data. In addition, data may be omitted in some cases. CLINICAL DECISIONS SHOULD BE BASED ON THE PRIMARY CLINICAL RECORDS. [employer] provides no warranty or guarantee of the accuracy or completeness of information in this document.
[2025-07-22 19:19] LABS: Hematocrit 36.8 % (37-47); Hemoglobin 11.8 g/dL (12.0-15.0); Immature Granulocytes Count 0.040 X10^3/uL (0.0-0.0); Mean Corp Hgb Conc 32.1 g/dL (32-36); Mean Corpuscular Volume 82.1 fL (81-99); Mean Platelet Vol. 10.3 fl (6.2-12.0); NRBC Flagged by Analyzer 0 % (0-5); Platelet Count 256 K/mm3 (150-450); RBC Distribution Width CV 15.9 % (11.6-14.6); RBC Distribution Width SD 47.5 fl (35.1-43.9); Red Blood Count 4.48 M/mm3 (4.2-5.4); White Blood Count 7.1 K/mm3 (4.4-11.0)
[2025-07-22 19:36] LABS: AST(SGOT) 23 U/L (<=31); Alanine Aminotransfer ALT/SGPT 16 U/L (<=34); Albumin, Serum 4.0 g/dL (3.5-5.0); Alkaline Phosphatase 76 U/L (35-104); Anion Gap 11 (5-15); BUN 12 mg/dL (4-19); BUN/Creat Ratio 12.9 RATIO (10-20); Calcium,Total 9.0 mg/dL (7.6-11.0); Carbon Dioxide 21.7 mmol/L (21.0-32.0); Chloride 105 mmol/L (98-108); Globulin 2.8 g/dL (2.2-4.2); Glucose 66 mg/dL (70-99); Potassium 4.1 mmol/L (3.3-5.1)
== END | disposition home or self-care (01) ==
LOC: MTLAB 16:05
PROVIDERS: PCP Family Medicine; Referring Provider Internal Medicine Rheumatology; Visit Provider Internal Medicine Rheumatology
DX: M06.4 Inflammatory polyarthropathy (principal); R76.89 Other specified abnormal immunological findings in serum; Z79.899 Other long term (current) drug therapy
CPT/HCPCS: 36415; 80053; 85025

== ENCOUNTER → 2025-07-29 | Outpatient (CLI) | payer OTHER, SELFPAY ==
[2025-07-29 12:30] LABS: Cholesterol 189 mg/dL (<=200); Low Density Lipoprotein Calc. 100 mg/dL; Triglycerides 77 mg/dL; Very Low Density Lipoprotein 15 mg/dL (5-40); cholesterol:hdl ratio screen 2.56
== END | disposition home or self-care (01) ==
LOC: MTLAB 08:50
PROVIDERS: PCP Family Medicine; Referring Provider Internal Medicine; Visit Provider Internal Medicine
DX: Z00.00 Encounter for general adult medical examination without abnormal findings (principal)
CPT/HCPCS: 36415; 80061